=== PATIENT | female | born 1940 | race Caucasian/White ===

== ENCOUNTER → 2017-12-07 14:11 | Outpatient (CLI) | payer MEDICARE, SELFPAY ==
[2017-12-07 16:03] LABS: BUN 26 mg/dL (7-18); Glucose 106 mg/dL (74-106)
[2017-12-07 16:04] LABS: Anion Gap 9 (5-15); Calcium,Total 9.3 mg/dL (8.5-10.1); Chloride 100 mmol/L (98-107); EST Glomerular Filtration Rate 42 mL/min (>60); Est Glom Filt Rate - Afr Amer 51 mL/min (>60); Potassium 4.4 mmol/L (3.5-5.1); Sodium Level 138 mmol/L (136-145)
== END ==
PROVIDERS: Visit Provider Physician Assistant Medical
DX: E78.5 Hyperlipidemia, unspecified (principal)
CPT/HCPCS: 36415; 80048

== ENCOUNTER → 2017-12-20 11:49 | Outpatient (CLI) | payer MEDICARE, SELFPAY ==
[2017-12-20 11:52] LABS: Red Blood Cells-Urine 0 SEEN /hpf (0-5)
[2017-12-20 16:09] LABS: Absolute Lymphocyte Count 1.18 X10^3/ul (0.83-4.51); Absolute Neutrophil Count 4.8 X10^3/uL (2.0-7.7); Basophil# 0.03 X10^3/uL; Basophil% 0.4 % (0-1); Eosinophil# 0.32 X10^3/uL; Eosinophils% 4.6 % (0-5); Hemoglobin 11.4 g/dl (12.0-15.0); Lymphocyte # 1.18 X10^3/ul (4.0); Lymphocyte % 16.8 % (19-41); Mean Corp Hgb Conc 32.6 g/gl (32-36); Mean Corpuscular Hgb 29.6 pg (27.0-32.0); Mean Corpuscular Volume 90.9 fL (81-99); Mean Platelet Vol. 10.5 fl (6.2-12.0); Neutrophil # 4.77 X10^3/uL (2.7-7.7); Neutrophil % 67.9 % (47-70); Platelet Count 276 K/mm3 (150-450); RBC Distribution Width CV 13.6 % (11.6-14.6); RBC Distribution Width SD 44.2 fl (35.1-43.9); Red Blood Count 3.85 M/mm3 (4.2-5.4)
[2017-12-20 16:12] LABS: POSITIVE COUNT NO; POSITIVE DIFFERENTIAL NO; POSITIVE MORPHOLOGY NO
[2017-12-20 16:34] LABS: Anion Gap 10 (5-15); BUN 29 mg/dL (7-18); BUN/Creat Ratio 21.2 RATIO (10-20); Calcium,Total 9.5 mg/dL (8.5-10.1); Chloride 101 mmol/L (98-107); Creatinine, Serum 1.37 mg/dL (0.55-1.02); EST Glomerular Filtration Rate 40 mL/min (>60); Est Glom Filt Rate - Afr Amer 48 mL/min (>60); Glucose 85 mg/dL (74-106); Magnesium 2.4 mg/dL (1.6-2.6); Potassium 4.4 mmol/L (3.5-5.1); Sodium Level 137 mmol/L (136-145); T4 Free Direct 1.04 ng/dL (0.76-1.46); Thyroid Stim Hormone (TSH) 2.86 uIU/mL (0.358-3.74)
[2017-12-20 16:42] LABS: Color, Urine Yellow (Yellow); Glucose, Dipstick Normal (Normal); Hemoglobin A1c 6.4 % (4.2-6.3); Ketone-Dipstick Negative (Negative); Leukocyte Esterase-Dipstick 500 /ul (Negative); Nitrite-Dipstick Positive (Negative); Occult Blood-Urine 10 /ul (Negative); Protein-Dipstick Negative (Negative); Specific Gravity, Urine 1.015 (1.002-1.030); Urine Bilirubin Dipstick Negative (Negative); Urine Clarity Cloudy (Clear); Urine Urobilinogen Normal (Normal)
[2017-12-20 17:33] LABS: Microalbumin,Random Urine 36.6 mg/L (NO RANGE EST.)
[2017-12-20 18:00] LABS: Hyaline Cast 0-5 SEEN /lpf (0-5)
[2017-12-20 18:03] LABS: Bacteria 4+ /hpf (None Seen); Squamous Epithelial Cells - UA 0-5 SEEN /hpf (5-10); Transitional Epithelial - Ur 0-5 SEEN /hpf (0-5); White Blood Cells 25-50 SEEN /hpf (0-5)
[2017-12-20 18:04] LABS: Mucous, Urine RARE /hpf (<or=2+)
[2017-12-20 18:06] LABS: Renal Epithelial Cells 0-5 SEEN /hpf (0-5)
[2017-12-21 14:12] LABS: Ferritin 36 ng/mL (8-252); Iron 64 ug/dL (50-170); Iron Binding Capacity,Total 378 ug/dL (250-450); PERCENT IRON SATURATION 16.9 % (15.0-55.0)
[2017-12-21 15:25] LABS: Vitamin B12 1021 pg/mL (211-911)
== END ==
PROVIDERS: Family Provider Family Medicine; PCP Family Medicine; Visit Provider Family Medicine
DX: E11.9 Type 2 diabetes mellitus without complications (principal); D64.9 Anemia, unspecified; N39.0 Urinary tract infection, site not specified
CPT/HCPCS: 80048; 81001; 82043; 82570; 82607; 82728; 82746; 83036; 83540; 83550; 83735; 84439; 84443; 85025; 87077; 87086; 87088; 87186

== ENCOUNTER → 2017-12-25 14:52 | Outpatient (CLI) | payer MEDICARE, SELFPAY ==
--- NOTE | 2017-12-25 14:54 | US_ITS ---
STUDY: THYROID ULTRASOUND REASON FOR EXAM: Female, 77 years old. Thyroid nodule. TECHNIQUE: Ultrasound evaluation of the thyroid was performed with real-time and static roe-scale imaging. COMPARISON: None. FINDINGS: RIGHT LOBE: The right lobe of the thyroid gland measures 3.9 cm x 1.7 cm x 1.2 cm. There is a homogeneous echotexture. There is a 3 mm x 3 mm x 2 mm cyst in the lower pole of the right lobe of the thyroid. LEFT LOBE: The left lobe of the thyroid gland measures 4.2 cm x 1.1 cm x 1.1 cm. There is a homogeneous echotexture. 2 subcentimeters hypoechoic solid nodules are seen. The larger measures 6 mm x 7 mm x 7 mm. This is in the midportion of the left lobe. ISTHMUS: The isthmus measures 4.0 mm. There is an 8 mm x 6 mm x 5 mm solid hypoechoic nodule in the isthmus. The regional lymph nodes are normal. US/Thyroid IMPRESSION: Nodules seen in both lobes as well as in the isthmus. Correlation with a nuclear medicine thyroid uptake and scan is recommended. Electronically Signed: Alexis Munoz MD at 15:01 EST Tel [phone], Service support ,
== END ==
PROVIDERS: Family Provider Family Medicine; PCP Family Medicine; Visit Provider Family Medicine
DX: E04.1 Nontoxic single thyroid nodule (principal)
CPT/HCPCS: 76536

== ENCOUNTER → 2018-01-07 09:29 | Outpatient (CLI) | payer MEDICARE, SELFPAY ==
--- NOTE | 2018-01-07 09:36 | NM_ITS ---
CLINICAL: 77-year-old female with reported history of thyroid nodularity. I-123 THYROID UPTAKE and SCAN COMPARISON: Thyroid ultrasound report 12/25/2017 FINDINGS: The patient was administered a 298 uCi I-123 capsule by mouth. The 4-hour I-123 radioactive iodine thyroidal uptake was calculated to be 6.0 % (normal 5 to 25 %). The 24-hour I-123 radioactive iodine thyroidal uptake was calculated to be 17.0 % (normal 5 to 40 %). The I-123 thyroid scan demonstrates heterogeneous radiopharmaceutical concentration throughout both lobes of a U-shaped thyroid gland. There are no dominant colloidal parenchymal hypofunctioning-cold nodules noted in either lobe of the thyroid gland. NM/Thyroid Uptake Single or Mult IMPRESSION: 1. LOWER LIMITS OF NORMAL 4- and NORMAL 24-hour I-123 radioactive iodine thyroidal uptakes. Correlation with in vitro thyroid function studies may be of benefit. 2. 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 The incidence of malignant transformation and hypofunctioning regions in a multinodular gland is < 5% in the absence of previous head and neck radiation. Electronically Signed: Giacomo Charlton DO at 9:50 EST Tel , Service support ,
== END ==
PROVIDERS: Family Provider Family Medicine; PCP Family Medicine; Visit Provider Family Medicine
DX: E04.2 Nontoxic multinodular goiter (principal)
CPT/HCPCS: 78012; A9516

== ENCOUNTER → 2018-01-15 11:46 | Outpatient (CLI) | payer MEDICARE, SELFPAY ==
[2018-01-15 14:52] LABS: Anion Gap 11 (5-15); BUN 27 mg/dL (7-18); BUN/Creat Ratio 28.7 RATIO (10-20); Calcium,Total 9.3 mg/dL (8.5-10.1); Chloride 105 mmol/L (98-107); Creatinine, Serum 0.94 mg/dL (0.55-1.02); EST Glomerular Filtration Rate 61 mL/min (>60); Est Glom Filt Rate - Afr Amer 74 mL/min (>60); Glucose 85 mg/dL (74-106); Potassium 4.2 mmol/L (3.5-5.1); Sodium Level 140 mmol/L (136-145)
== END ==
PROVIDERS: Family Provider Family Medicine; PCP Family Medicine; Visit Provider Family Medicine
DX: R94.4 Abnormal results of kidney function studies (principal)
CPT/HCPCS: 36415; 80048

== ENCOUNTER → 2018-05-31 11:54 | Outpatient (CLI) | payer MEDICARE, SELFPAY ==
[2018-05-31 14:53] LABS: Absolute Neutrophil Count 4.2 X10^3/uL (2.0-7.7); Basophil# 0.03 X10^3/uL; Basophil% 0.5 % (0-1); Eosinophil# 0.27 X10^3/uL; Eosinophils% 4.3 % (0-5); Hematocrit 36.9 % (37-47); Hemoglobin 11.8 g/dl (12.0-15.0); Lymphocyte % 17.7 % (19-41); Mean Corpuscular Hgb 28.7 pg (27.0-32.0); Mean Corpuscular Volume 89.8 fL (81-99); Mean Platelet Vol. 10.1 fl (6.2-12.0); Monocyte# 0.66 X10^3/uL; Monocyte% 10.6 % (0-10); Neutrophil # 4.16 X10^3/uL (2.7-7.7); Neutrophil % 66.7 % (47-70); Platelet Count 250 K/mm3 (150-450); RBC Distribution Width CV 13.9 % (11.6-14.6); RBC Distribution Width SD 44.8 fl (35.1-43.9); Red Blood Count 4.11 M/mm3 (4.2-5.4); White Blood Count 6.2 K/mm3 (4.4-11.0)
[2018-05-31 14:57] LABS: POSITIVE COUNT NO; POSITIVE DIFFERENTIAL NO; POSITIVE MORPHOLOGY NO
[2018-05-31 15:23] LABS: AST(SGOT) 32 U/L (15-37); Alanine Aminotransfer ALT/SGPT 31 U/L (13-56); Albumin, Serum 3.9 g/dL (3.2-5.0); Alkaline Phosphatase 66 U/L (45-117); Bilirubin, Direct 0.12 mg/dL (0.00-0.30); Cholesterol 139 mg/dL (200); High Density Lipoprotein 54 mg/dL; Protein, Total 7.9 g/dL (6.4-8.2); Triglycerides 283 mg/dL; Very Low Density Lipoprotein 57 mg/dL (5-40)
[2018-05-31 15:28] LABS: ALB/GLOB Ratio 1.1 RATIO (0.9-2.4); AST(SGOT) 33 U/L (15-37); Alanine Aminotransfer ALT/SGPT 29 U/L (13-56); Albumin, Serum 3.8 g/dL (3.2-5.0); Alkaline Phosphatase 58 U/L (45-117); Anion Gap 6 (5-15); BUN 28 mg/dL (7-18); BUN/Creat Ratio 22.4 RATIO (10-20); Calcium,Total 9.8 mg/dL (8.5-10.1); Chloride 104 mmol/L (98-107); Cholesterol 138 mg/dL (200); Creatinine, Serum 1.25 mg/dL (0.55-1.02); EST Glomerular Filtration Rate 44 mL/min (>60); Est Glom Filt Rate - Afr Amer 53 mL/min (>60); Globulin 3.5 g/dL (2.2-4.2); Glucose 106 mg/dL (74-106); High Density Lipoprotein 55 mg/dL; Potassium 4.8 mmol/L (3.5-5.1); Protein, Total 7.3 g/dL (6.4-8.2); Sodium Level 139 mmol/L (136-145); Triglycerides 260 mg/dL; Very Low Density Lipoprotein 52 mg/dL (5-40)
[2018-05-31 15:41] LABS: Microalbumin,Random Urine 10.8 mg/L (NO RANGE EST.); Microalbumin:Creatinine Ratio 11.2 mg/g CRE (<30 mg/g CRE)
[2018-05-31 15:45] LABS: Hemoglobin A1c 6.3 % (4.2-6.3)
== END ==
PROVIDERS: Family Provider Family Medicine; PCP Family Medicine; Visit Provider Physician Assistant Medical
DX: E78.00 Pure hypercholesterolemia, unspecified (principal)
CPT/HCPCS: 36415; 80053; 80061; 80076; 82043; 82570; 83036; 85025

== ENCOUNTER 2018-06-24 05:51 | Day surgery (SDC) | payer MEDICARE, SELFPAY ==
[2018-06-24 06:12] VITALS: BP 169/100; PULSE 67; RESP 16; TEMP 36.6; O2SAT 98; BMI 47.1
[2018-06-24 06:31] LABS: Bedside Glucose 129 mg/dL (70-110)
--- NOTE | 2018-06-24 07:14 | PCM.OPRPT ---
Problem List (1) Heme + stool Status: Acute Report of Operation Date of Procedure: 06/24/18 Pre-Operative Diagnosis: R19.5 heme positive stool Post-Operative Diagnosis: Same Surgery/Procedure Performed:: Colonoscopy Type of Anesthesia:: MAC Description of Procedure: Patient was brought into the endoscopy suite. Placed in the left lateral decubitus position. Was given graded anesthesia. Colonoscope was inserted into the rectum. Directed through the anastomosis, descending colon, transverse colon, descending colon, cecum, into the terminal ileum. Operative findings: 1. Terminal ileum: Normal appearance no lesions no erythema 2. Cecum: Normal appearance no mass lesions. 3. Transverse colon: Normal appearance no mass lesions. 4. Descending colon: Normal appearance no mass lesions. 5. Anastomosis: Normal appearance no mass lesions. 6. Rectum: Normal appearance no mass lesions retroflexion did show internal hemorrhoids. Patient has significant diverticular disease throughout the colon majority of it was in the descending colon. There is no obvious source of bleeding there is no mass lesions there were no polyps and positive stools probably were either from her internal hemorrhoids or diverticular disease. Patient can have repeat colonoscopies based upon symptomatology. Patient may restart her anticoagulation today. - Admit VTE Documentation VTE Present on Admission: No VTE Mechan Device Prophylaxis: None VTE Pharm Prophylaxis ordered?: No Reason prophylaxis not ordered:: Treatment Not Indicated
[2018-06-24 07:20] VITALS: BP 100/46; BP 169/100; PULSE 61; RESP 12; TEMP 36.4; O2SAT 96
[2018-06-24 07:25] VITALS: BP 169/100; BP 98/48; PULSE 62; RESP 16; O2SAT 97
[2018-06-24 07:30] VITALS: BP 111/58; BP 169/100; PULSE 59; RESP 16; O2SAT 98
[2018-06-24 07:35] VITALS: BP 111/62; BP 169/100; PULSE 64; RESP 16; TEMP 37; O2SAT 99
[2018-06-24 07:55] VITALS: BP 169/100
== END 2018-06-24 08:04 | disposition home or self-care (01) ==
LOC: EN 05:51 → AC 05:52
PROVIDERS: Family Provider Family Medicine; PCP Family Medicine; Visit Provider Surgery
PROC: 0DJD8ZZ Inspection of Lower Intestinal Tract, Via Natural or Artificial Opening Endoscopic (ICD-10-PCS; CPT 45378; principal; 2018-06-24 06:55)
DX: K57.30 Diverticulosis of large intestine without perforation or abscess without bleeding (principal); K64.8 Other hemorrhoids; K63.89 Other specified diseases of intestine; I48.0 Paroxysmal atrial fibrillation; I48.92 Unspecified atrial flutter; E11.9 Type 2 diabetes mellitus without complications; A48.1 Legionnaires' disease; E78.5 Hyperlipidemia, unspecified; I10 Essential (primary) hypertension; I27.20 Pulmonary hypertension, unspecified; Z79.82 Long term (current) use of aspirin; Z79.84 Long term (current) use of oral hypoglycemic drugs; Z79.899 Other long term (current) drug therapy
CPT/HCPCS: 45378; 82962; J7120

== ENCOUNTER → 2018-10-15 12:22 | Outpatient (CLI) | payer MEDICARE, SELFPAY ==
[2018-08-14 13:26] VITALS: BMI 44.2
[2018-10-15 12:27] LABS: Mucous, Urine 0 SEEN /hpf (<or=2+); Red Blood Cells-Urine 0 SEEN /hpf (0-5)
[2018-10-15 15:40] LABS: Color, Urine Yellow (Yellow); Glucose, Dipstick Normal (Normal); Ketone-Dipstick 5 mg/dl (Negative); Leukocyte Esterase-Dipstick 500 /ul (Negative); Nitrite-Dipstick Positive (Negative); Occult Blood-Urine 25 /ul (Negative); Protein-Dipstick 15 mg/dl (Negative); Urine Bilirubin Dipstick Negative (Negative); Urine Clarity Sl. Cloudy (Clear); Urine Urobilinogen Normal (Normal)
[2018-10-15 15:55] LABS: Absolute Lymphocyte Count 1.04 X10^3/ul (0.83-4.51); Basophil# 0.03 X10^3/uL; Basophil% 0.5 % (0-1); Eosinophil# 0.28 X10^3/uL; Eosinophils% 4.7 % (0-5); Hematocrit 36.2 % (37-47); Hemoglobin 11.5 g/dl (12.0-15.0); Lymphocyte # 1.04 X10^3/ul (4.0); Lymphocyte % 17.5 % (19-41); Mean Corp Hgb Conc 31.8 g/gl (32-36); Mean Corpuscular Hgb 28.6 pg (27.0-32.0); Mean Platelet Vol. 10.5 fl (6.2-12.0); Monocyte# 0.56 X10^3/uL; Monocyte% 9.4 % (0-10); Neutrophil # 4.03 X10^3/uL (2.7-7.7); Neutrophil % 67.9 % (47-70); Platelet Count 277 K/mm3 (150-450); RBC Distribution Width CV 13.7 % (11.6-14.6); RBC Distribution Width SD 44.6 fl (35.1-43.9); Red Blood Count 4.02 M/mm3 (4.2-5.4); White Blood Count 5.9 K/mm3 (4.4-11.0)
[2018-10-15 16:03] LABS: Microalbumin:Creatinine Ratio 40.7 mg/g CRE (<30 mg/g CRE); Protein, Urine (Random) 24.2 mg/dL (<11.9); Protein:Creat Ratio 149 mg/g CRE (0-200)
[2018-10-15 16:06] LABS: POSITIVE COUNT NO; POSITIVE DIFFERENTIAL NO; POSITIVE MORPHOLOGY NO
[2018-10-15 16:07] LABS: AST(SGOT) 27 U/L (15-37); Alanine Aminotransfer ALT/SGPT 30 U/L (13-56); Albumin, Serum 3.5 g/dL (3.2-5.0); Alkaline Phosphatase 57 U/L (45-117); Anion Gap 10 (5-15); BUN 14 mg/dL (7-18); BUN/Creat Ratio 15.2 RATIO (10-20); Calcium,Total 9.8 mg/dL (8.5-10.1); Chloride 100 mmol/L (98-107); Cholesterol 125 mg/dL (200); Creatinine, Serum 0.92 mg/dL (0.55-1.02); EST Glomerular Filtration Rate 62 mL/min (>60); Est Glom Filt Rate - Afr Amer 75 mL/min (>60); Globulin 3.6 g/dL (2.2-4.2); Glucose 115 mg/dL (74-106); High Density Lipoprotein 47 mg/dL; Magnesium 1.2 mg/dL (1.6-2.6); Potassium 3.8 mmol/L (3.5-5.1); Protein, Total 7.1 g/dL (6.4-8.2); Sodium Level 139 mmol/L (136-145); Triglycerides 215 mg/dL; Very Low Density Lipoprotein 43 mg/dL (5-40)
[2018-10-15 16:11] LABS: Bacteria 3+ /hpf (None Seen); Squamous Epithelial Cells - UA 0-5 SEEN /hpf (5-10); White Blood Cells 25-50 SEEN /hpf (0-5)
[2018-10-15 16:12] LABS: Hemoglobin A1c 6.7 % (4.2-6.3)
[2018-10-15 16:13] LABS: Transitional Epithelial - Ur 0-5 SEEN /hpf (0-5)
[2018-10-15 16:43] LABS: Vitamin D,25 Hydroxy 43.4 ng/mL (29.95-100.01)
--- OUTSIDE RECORDS SUMMARY | 2018-12-01 14:36 | XMS RPT_ITS ---
:1940 Author Organization [place] Support Name Relationship Address Phone ALHAJIRICCARDO Unavailable [phone] + [place] [address] R Unavailable Unavailable Unavailable WAYBILL, SOCO Unavailable [phone] + [place] [address] RICCARDO MANE Unavailable [phone] + [place] [address] R Unavailable Unavailable Unavailable WAYBILL, SOCO Unavailable [phone] + [place] [address] RICCARDO MANE Unavailable Unavailable + R Unavailable Unavailable Unavailable WAYBILL, SOCO Unavailable Unavailable + [place] [address] RICCARDO MANE Unavailable Unavailable + R Unavailable Unavailable Unavailable WAYBILL, SOCO Unavailable Unavailable + [place] [address] RICCARDO MANE Unavailable Unavailable + R Unavailable Unavailable Unavailable WAYBILL, SOCO Unavailable Unavailable + [place] [address] RICCARDO MANE Unavailable . + [place] [address] R Unavailable Unavailable Unavailable WAYBILL, SOCO Unavailable . + [place] [address] RICCARDO MANE Unavailable Unavailable + [place] [address] R Unavailable Unavailable Unavailable WAYBILL, SOCO Unavailable Unavailable + [place], [place] RICCARDO MANE Unavailable . + [place] [address] R Unavailable Unavailable Unavailable WAYBILL, SOCO Unavailable . + [place] [address] RICCARDO MANE Unavailable . + [place] [address] R Unavailable Unavailable Unavailable WAYBILL, SOCO Unavailable . + [place] [address] RICCARDO MANE Unavailable Unavailable + R Unavailable Unavailable Unavailable WAYBILL, SOCO Unavailable Unavailable + RICCARDO MANE Unavailable Unavailable + R Unavailable Unavailable Unavailable WAYBILL, SOCO Unavailable Unavailable + RICCARDO MANE Unavailable Unavailable + R Unavailable Unavailable Unavailable WAYBILL, SOCO Unavailable Unavailable + RICCARDO MANE [place] + [place] Unavailable Unavailable Unavailable WAYBILL, SOCO Unavailable NA + [place] RICCARDO MANE Unavailable [place] + [place], [place] R Unavailable Unavailable Unavailable WAYBILL, SOCO Unavailable NA + [place] RICCARDO MANE Unavailable [place] + [place] R Unavailable Unavailable Unavailable WAYBILL, SOCO Unavailable NA + [place], [place] Care Team Providers Name Role Phone Freddie Arauz Attending Unavailable Freddie Arauz Primary Care Unavailable Saima Martinez Attending Unavailable Saima Martinez Referring Unavailable Primay Care Physicia, No Primary Care Unavailable Freddie Arauz Attending Unavailable Freddie Arauz Primary Care Unavailable Freddie Arauz Attending Unavailable Freddie Arauz Primary Care Unavailable Freddie Arauz Attending Unavailable Freddie Arauz Referring Unavailable Freddie Arauz Primary Care Unavailable Freddie Arauz Attending Unavailable Freddie Arauz Referring Unavailable Freddie Arauz Primary Care Unavailable Freddie Arauz Attending Unavailable Freddie Arauz Primary Care Unavailable Troy Dunaway Attending Unavailable Freddie Arauz Referring Unavailable Marvin Castaneda Attending Unavailable Freddie Arauz Referring Unavailable Freddie Arauz Primary Care Unavailable Saima Martinez Attending Unavailable Saima Martinez Referring Unavailable Freddie Arauz Primary Care Unavailable Marvin Castaneda Attending Unavailable Marvin Castaneda Referring Unavailable SchFreddie andino E Primary Care Unavailable Zayra Medina PA-C Attending Unavailable Freddie Arauz Referring Unavailable Freddie Arauz Primary Care Unavailable Marvin Castaneda Attending Unavailable Saima Doyle Attending Unavailable Riccardo Mckeon Attending Unavailable Primay Care Physicia, No Referring Unavailable PROBLEMS PROBLEMS DATE TYPE CONDITION / CODE ATTENDING STATUS SOURCE 08/14/2018 Unknown I48.0 - Paroxysmal Riccardo Mckeon Active [place] atrial fibrillation Community / I48.0(ICD-10) Hospital Repository 08/14/2018 Unknown I48.92 - MoodisRiccardo miller Active [place] Unspecified atrial Community flutter / Hospital I48.92(ICD-10) Repository 06/28/2018 Unknown R19.5 - Other fecal LeonelPacheco pangel Active [place] abnormalities / Community R19.5(ICD-10) Hospital Repository 05/31/2018 Unknown E78.00 - Pure Martinez Active [place] hypercholesterolemi Saima [facility] Community a, unspecified / Hospital E78.00(ICD-10) Repository 03/01/2018 Unknown 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 mg/dL Normal UR CREAT 162.00 LAB L501.1930 <11.9 mg/dL High 24.2 PROTEIN,UR.R AN. LAB L501.1940 0-200 mg/g CRE Normal PROT:CRE 149 RATIO Performed By: #### L501.0900, L502.0250 #### [facility] [place], [address] MICROALB:CREAT Collected: 10/15/2018 Status: F Source: [place] RATIO,RANDOM UR 12:25 PM [facility] REPOSITORY TYPE CODE TESTS RESULT OUT OF RANGE REFERENCE UNITS LAB L502.0500 NO RANGE EST. mg/L Normal 66.0 MICROALBUMIN ,UR LAB L502.0600 <30 mg/g CRE mg/g CRE High 40.7 MALB:CREAT Performed By: #### L501.0900, L502.0250 #### [facility] [address] [place], [place], [address] CBC W/DIFF, AUTOMATED Collected: 10/15/2018 Status: F Source: [place] 12:25 PM [facility] REPOSITORY TYPE CODE TESTS RESULT OUT OF RANGE REFERENCE UNITS LAB L100.1000 4.4-11.0 K/mm3 Normal WBC 5.9 LAB L100.1200 4.2-5.4 M/mm3 Low RBC 4.02 LAB L100.1300 12.0-15.0 g/dl Low HGB 11.5 LAB L100.1400 37-47 % Low HCT 36.2 LAB L100.1500 81-99 fL Normal MCV 90.0 LAB L100.1600 27.0-32.0 pg Normal MCH 28.6 LAB L100.1700 32-36 g/gl Low MCHC 31.8 LAB L100.1810 11.6-14.6 % Normal RDW CV 13.7 LAB L100.1820 35.1-43.9 fl High RDW SD 44.6 LAB L100.1900 150-450 K/mm3 Normal PLT 277 LAB L100.2000 6.2-12.0 fl Normal MPV 10.5 LAB L100.2100 47-70 % Normal NEUT% 67.9 LAB L100.2200 19-41 % Low LY% 17.5 LAB L100.2300 0-10 % Normal MONO% 9.4 LAB L100.2400 0-5 % Normal EO% 4.7 LAB L100.2500 0-1 % Normal BASO% 0.5 LAB L100.2550 0.0-0.9 % Normal IM GRAN % 0.000 Result Comment: IG% - Immature Granulocytes (promyelocytes, myelocytes and metamyelocytes) > 1% indicates that a LEFT SHIFT is Present. LAB L100.2620 2.0-7.7 X10 3/uL Normal Absolute Neut 4.0 LAB L100.2720 0.83-4.51 X10 3/ul Normal Absolute Lymph 1.04 Performed By: #### L100.0100 #### [facility] [address] [facility] [address] [place], [place], [id number] URINALYSIS, COMPLETE Collected: 10/15/2018 Status: F Source: [place] 12:25 PM [facility] REPOSITORY Order Comment: How was Urine Obtained? CLEAN CATCH TYPE CODE TESTS RESULT OUT OF REFERENCE UNITS RANGE LAB L400.3000 Yellow COLOR Normal Yellow LAB L400.3050 Clear CLARITY Normal Sl. Cloudy LAB L400.3200 Normal mg/dl GLUCOSE, UR Normal Normal LAB L400.3300 Negative mg/dL BILIRUBIN Normal URINE Negative LAB L400.3400 Negative mg/dl KETONE UR High 5 LAB L400.3465 1.002-1.030 SP.GR. Normal DIPSTX 1.020 LAB L400.3550 5.0 - 8.0 pH UR Normal 5.0 LAB L400.3600 Negative mg/dl PROT DIPSTX High 15 LAB L400.3700 Normal mg/dl UROBILI Normal Normal LAB L400.3750 Negative NITRITE UR High Positive LAB L400.3780 Negative /ul OCCULT High BLOOD-UR 25 LAB L400.3800 Negative /ul LEUK High ESTERASE 500 LAB L400.4050 0-5 /hpf WBC Normal 25-50 SEEN LAB L400.4100 0-5 /hpf RBC-UA Normal 0 SEEN LAB L400.4150 5-10 /hpf SQUAM EPI Normal 0-5 SEEN LAB L400.4300 None Seen /hpf BACTERIA Normal 3+ LAB L400.4350 <or=2+ /hpf MUCUS, Normal URINE 0 SEEN LAB L400.4200 0-5 /hpf Normal TRANSITIONAL EP 0-5 SEEN Performed By: #### L400.0001 #### [facility] [address] [facility] [place], [address] COMPREHENSIVE METABOLIC Collected: 10/15/2018 Status: F [facility] REPOSITORY TYPE CODE TESTS RESULT OUT OF RANGE REFERENCE UNITS LAB L501.0100 74-106 mg/dL High GLU 115 Result Comment: Fasting Glucose result from 100 to 125 mg/dL suggests IMPAIRED HOMEOSTASIS per A.D.A. criteria. Please note revised GLUCOSE reference range effective 2017. LAB L501.1000 7-18 mg/dL Normal BUN 14 LAB L501.1100 0.55-1.02 mg/dL Normal CREAT,SERUM 0.92 Result Comment: The validity of the calculated GFR AND GFRAA in patients over 70 years has not been determined. Clinical correlation is essential. LAB L501.1110 >60 mL/min Normal EST GFR 62 Result Comment: Non- GFR Calc LAB L501.1115 >60 mL/min Normal EST GFR - AA 75 Result Comment: GFR Calc LAB L501.1300 10-20 RATIO Normal BUN/CRE 15.2 LAB L501.1500 6.4-8.2 g/dL T Normal PROT 7.1 LAB L501.1800 3.2-5.0 g/dL Normal ALB 3.5 LAB L501.1950 2.2-4.2 g/dL Normal GLOB 3.6 LAB L501.2000 0.9-2.4 RATIO Normal A/G 1.0 LAB L501.2200 8.5-10.1 mg/dL CA Normal 9.8 LAB L501.4100 15-37 U/L Normal AST 27 LAB L501.4305 45-117 U/L Normal ALK P 57 LAB L501.4405 13-56 U/L Normal ALT 30 LAB L501.4600 0.20-1.00 mg/dL T Normal BILI 0.60 LAB L501.5300 136-145 mmol/L NA Normal 139 LAB L501.5600 3.5-5.1 mmol/L K Normal 3.8 LAB L501.5900 98-107 mmol/L CL Normal 100 LAB L501.6100 21.0-32.0 mmol/L Normal CO2 29.0 LAB L501.6200 5-15 Normal GAP 10 Performed By: #### L500.4050, L500.4100, L501.5200 #### [facility] [address] [place], [place], [id number] LIPID PROFILE Collected: 10/15/2018 Status: F Source: [place] 12:25 PM [facility] REPOSITORY TYPE CODE TESTS RESULT OUT OF RANGE REFERENCE UNITS LAB L501.4900 200 mg/dL Normal CHOL 125 Result Comment: <200 mg/dL Desirable 200-240 mg/dL Borderline >240 mg/dL High Risk LAB L501.5000 mg/dL High TRIG 215 Result Comment: The drugs N-Acetylcysteine and Metamizole may falsely depress this assay. Serum Triglycerides Reference Interval Normal <150 mg/dL Borderline high 150 - 199 mg/dL High 200 - 499 mg/dL Very High > or = 500 mg/dL LAB L501.6400 mg/dL Normal HDL 47 Result Comment: The drugs N-Acetylcysteine and Metamizole may falsely depress this assay. Reference Range HDL <40 mg/dL Low HDL Cholesterol HDL >or= 60 mg/dL High HDL Cholesterol LAB L501.6500 0-130 mg/dL Normal LDL 35 LAB L501.6600 5-40 mg/dL High VLDL 43 Performed By: #### L500.4050, L500.4100, L501.5200 #### [facility] [address] [place], [place], [address] MAGNESIUM Collected: 10/15/2018 Status: F Source: [place] 12:25 PM [facility] REPOSITORY TYPE CODE TESTS RESULT OUT OF RANGE REFERENCE UNITS LAB L501.5200 1.6-2.6 mg/dL Low MG 1.2 Performed By: #### L500.4050, L500.4100, L501.5200 #### [facility] [address] [place], [address] HEMOGLOBIN A1C Collected: 10/15/2018 Status: F Source: [place] 12:25 PM [facility] REPOSITORY TYPE CODE TESTS RESULT OUT OF RANGE REFERENCE UNITS LAB L501.9985 4.2-6.3 % High HGB A1C 6.7 Performed By: #### L501.9985 #### [facility] [address] [place], [place], [address] VITAMIN D,25 HYDROXY Collected: 10/15/2018 Status: F Source: [place] 12:25 PM [facility] REPOSITORY TYPE CODE TESTS RESULT OUT OF RANGE REFERENCE UNITS LAB L506.1000 29.95-100.01 ng/mL Normal Vitamin D 43.4 25-OH Result Comment: Vitamin D 25(OH) Status Range Deficiency <20 ng/mL (50nmol/L) Insuffciency 20 - 30 ng/mL (50 - 75 nmol/L) Sufficiency 30 - 100 ng/mL (75 - 250 nmol/L) Toxicity >100 ng/mL (>250 nmol/L) Performed By: #### L506.1000 #### [facility] [address] [place], [address] CARDIOLOGY VISIT Observed: 08/14/2018 Status: F Source: [place] REPORT 2:02 PM [facility] REPOSITORY [facility] [address] [place] [address] OFFICE VISIT Date of Service: 08/14/18 MR#: [id number] Acct: [id number] Name: NETTIE MANE Rep #: [id number] : 1940 Provider: Riccardo Mckeon MD Age/Sex: 78/F Location[place] [facility] [place] Status: Signed HPI HPI Details: NETTIE MANE, is a 78 F who presents to the office today for for outpatient cardiovascular follow-up. Overall since her previous visit she states that she has been doing well. She is not complaining of any ongoing symptoms of classic angina pectoris, CHF/pulmonary edema, palpitations, near-syncope or syncope. She has not had to go through additional cardiovascular testing. She states she is doing well on her current cardiovascular medication. She did have her lipid labs performed in May of this year. Her total cholesterol was 138 with an LDL of 31 and an HDL of 55. Her triglycerides were somewhat elevated at 260. Her AST and ALT were within normal range. She did have an ECG in the office today. She appears remaining in an underlying sinus versus ectopic atrial rhythm. She had no acute ECG changes. Intake Vital Signs08/14/18 Height 5 ft 2 in 08/14/18 Weight: 242 lb 08/14/18 Body Mass Index (BMI) 44.2 08/14/18 Blood Pressure 132/72 H Intake Visit Reasons: 9 M FU Allergies No Known Allergies Allergy (Verified 08/14/18 13:26) Medications Aspirin [Aspirin, Baby] 81 mg PO DAILY@0800 10/12/14 [History Confirmed 08/14/18] Calcium Carb/Vitamin D [Caltrate-600 With Vit D Tab] 2 tab PO DAILY@0800 10/12/14 [History Confirmed 08/14/18] Multivitamins,Therapeutic [Multivitamin] 1 tab PO DAILY 10/12/14 [History Confirmed 08/14/18] dabigatran etexilate 150 mg capsule 150 mg PO BID #180 cap 11/16/17 [Rx Confirmed 08/14/18] furosemide 40 mg tablet 40 mg PO BID #180 tab 11/16/17 [Rx Confirmed 08/14/18] lisinopril 20 mg tablet 20 mg PO BID #180 tab 11/16/17 [Rx Confirmed 08/14/18] magnesium oxide 400 mg (241.3 mg magnesium) tablet 400 mg PO QDAY #90 tab 11/16/17 [Rx Confirmed 08/14/18] sotalol 80 mg tablet 120 mg PO BID #270 tab 11/16/17 [Rx Confirmed 08/14/18] atorvastatin 20 mg tablet 20 mg PO QHS #90 tab 11/21/17 [Rx Confirmed 08/14/18] metformin 500 mg tablet 500 mg PO BID tab 11/21/17 [History Confirmed 08/14/18] ascorbic acid (vitamin C) 500 mg capsule 500 mg PO QDAY cap 03/29/18 [History Confirmed 08/14/18] gabapentin 600 mg tablet 600 mg PO TID 03/29/18 [History Confirmed 08/14/18] lidocaine 5 % topical patch 1 patch TOPICAL PRN PRN 03/29/18 [History Confirmed 08/14/18] Potassium Chloride [K-Dur] 20 meq PO DAILY PRN 06/20/18 [History Confirmed 08/14/18] [facility] Medical History Type 2 diabetes mellitus (Chronic) Paroxysmal atrial flutter (Acute) Bilateral leg edema (Chronic) Dyspnea on exertion (Chronic) Atrial fibrillation with rapid ventricular response (Chronic) Hyperlipidemia (Chronic) Essential hypertension (Chronic) Paroxysmal atrial fibrillation (Chronic) History of Legionnaire's disease (Resolved) History of cardioversion (Resolved) Atrial flutter (Inactive) Surgical History History of appendectomy (Resolved) History of cholecystectomy (Resolved) History of colon resection (Resolved 2011) History of hysterectomy (Resolved) History of tonsillectomy (Resolved) Hx of appendectomy (Inactive) Family History Father CAD (coronary artery disease) Mother Hypertension CVA (cerebral vascular accident) Social History Smoking Status: Never smoker alcohol intake: current alcohol intake frequency: holidays/special occasions only Alcohol type: hard liquor substance use type: does not use caffeine: No what type of physical activity do you participate in: swimming frequency: 1-2 times per week duration: 45-60 minutes/day seatbelt use: always do you feel safe at home: Yes ROS Const Const: Negative for fatigue, weakness, weight gain, weight loss, frequent falls or excessive sweating Eyes Eyes: Negative for change in vision, blurry vision or transient loss of vision ENT ENT: Positive for balance problems (ambulates with a cane); negative for dizziness Cardio Chest Pain: No Palpitations: No Edema: Bilateral (+1-2 Bilat LE) Muscle aches with walking: None Resp Respiratory: Positive for SOB with activity (baseline); negative for SOB at rest GI GI: Negative vomiting or vomiting blood/hematemesis : Negative for hematuria Musc Musc: Positive for balance problems (ambulates with a cane); negative for muscle aches/ myalgia, muscle weakness or joint pain Skin Skin: Negative non-healing lesions or rash Neuro Neuro: Negative for weakness, blurry vision, dizziness, lightheadedness, frequent falls or orthostatic symptoms Dani Hematologic/Lymphatic: Negative for easy bleeding Endo Endo: Negative for fatigue or excessive sweating Psych Psych: Negative for anxiety or depression Allergy Allergy/Immunology: Negative for hives, Negative for rash Cardiology Exam Const Appearance: cooperative, healthy appearing, comfortable, no acute distress, well developed, well groomed and other (walks with a cane) Nutritional Appearance: overweight Orientation: alert, awake and oriented x3 Head Head: normal to inspection, normocephalic and atraumatic Ears: hearing grossly normal bilaterally Nose: external nose normal Face and Sinus: face symmetric Mouth: oral mucosae normal Eyes Eyelids: eyelids normal Conjunctivae: conjunctivae normal Pupils: PERRL EOM: EOM intact bilaterally Neck Neck: normal visual inspection and full ROM Carotids: normal carotid upstroke Chest Chest inspection: normal inspection of the chest and symmetric chest movement Auscultation: Bilateral: Clear to Auscultation Cardio Palpation: normal PMI Heart sounds: S1 normal and S2 normal GI GI: normal to inspection, bowel sounds present and soft Neuro General: alert, awake and oriented x3 Skin Skin: no rashes or lesions noted Extremities Pulses: Normal: Right Radial Pulse, Left Radial Pulse Lower Extremity Edema: +2: Bilateral Psych Psychological: normal affect Supplemental Info Transthoracic echocardiogram: 05/15/2017 Interpretation Summary Left ventricular systolic function is normal. The estimated ejection fraction is 60 %. Mild concentric left ventricular hypertrophy. Apical false tendon noted. The left atrium is moderately enlarged. The right atrium is mildly enlarged. There is mild mitral annular calcification. Mild (1+) mitral valve insufficiency. Mild tricuspid valve insufficiency. Right ventricular systolic pressure estimated to be 44 mmHg. Transmitral diastolic flow velocities suggest diastolic dysfunction (pseudonormal pattern). Pharmacologic stress nuclear imaging study: 10/16/2012 INTERPRETATION Resting electrocardiogram demonstrates sinus rhythm, nonspecific ST and T wave changes. Resting blood pressure was 104/60. Heart rate of 65. The patient underwent Regadenoson infusion and was injected with OA mg over 10 seconds, No chest discomfort to suggest angina was elicited with regadenoson. Blood pressure increased slightly to 112/60 with an increase in heart rate to 78. The electrocardiogram with regadenoson demonstrated sinus rhythm with no ST changes to suggest ischemia. CONCLUSION 1. Normal physiologic response to regadenoson. 2. No chest discomfort to suggest angina with regadenoson. 3. Resting electrocardiogram demonstrating sinus rhythm, nonspecific ST and T wave changes. 4. Electrocardiogram with regadenoson demonstrating no ST changes to suggest ischemia. 5. Nuclear images demonstrate a decrease in activity involving the anteroseptal apex at rest improving with regadenoson suggestive of soft tissue/breast attenuation, but no significant fixed defects to suggest infarct and no reversible defects developing with regadenoson to suggest inducible ischemia. Calculated ejection fraction by gated SPECT imaging was 69%. 10/25/12 8139 <Electronically signed by Jude Guidry MD> Holter monitor: 11/10/2014 THIS JAIDEN 24 HOUR HOLTER MONITOR IN SINUS RHYTHM WITH PERIODS OF SINUS ARRHYTHMIA. MINIMUM HEART RATE WAS 50 BPM AT 4:48:46 AM, NO ACTIVITY OR SYMPTOM RECORDED. MAXIMUM HEART RATE WAS 92 BPM AT 11:10:55 AM, NO ACTIVITY OR SYMPTOM RECORDED. AVERAGE HEART RATE NOTED TO BE 61 BPM. RARE PREMATURE ATRIAL COMPLEXES. 2 ATRIAL COUPLETS. 1 RUN OF 3 BEATS OF PROBABLE ECTOPTC ATRIAL RHYTHM RATE 121 BPM AT 2:59:43 PM. RARE VENTRICULAR ECTOPY. NO RUNS NOTED. THE PATIENT KEPT A 24 HOUR DIARY. NO ACTIVITY OR SYMPTOMS RECORDED. Assessment AND Plan 1. Paroxysmal atrial fibrillation I48.0 Plan At the present time, based upon her current evaluation, she appears to be remaining in an underlying sinus versus ectopic atrial rhythm. She will continue her rate limiting/antiarrhythmic therapy. She will continue anticoagulant therapy. She will notify the office of any concerns. Orders Orders: 2. Paroxysmal atrial flutter I48.92 Plan Again she appears to be remaining in an underlying sinus versus ectopic atrial rhythm. She has had no acute symptoms. She will continue medical management and follow-up. Orders Orders: 3. Pure hypercholesterolemia E78.00 Plan Her lipid labs are as noted above. She will continue her medical therapy and follow-up. 4. Essential hypertension I10 Plan Her blood pressure appears to be well controlled. She will continue her antihypertensive medications. 5. Bilateral leg edema R60.0 Plan She continues with bilateral lower extremity peripheral pitting edema. This is chronic for her. She will continue her current medical management. Plan Detail Additional Comments Thank you for allowing me to participate in the care of your patient. Please don't hesitate to call if any issues arise. This note was generated using a voice recognition system and there may be incorrect words, spelling or punctuation that were not noted when reviewing the office note prior to saving. Follow Up 1 Year (PFM) Coding Level of Care Code Off vis,est,level 4 Diagnoses Paroxysmal atrial fibrillation I48.0 Paroxysmal atrial flutter I48.92 Pure hypercholesterolemia E78.00 Hyperlipidemia type: pure hypercholesterolemia Essential hypertension I10 Bilateral leg edema R60.0 Coding Level of Care Code Off vis,est,level 4 Diagnoses Paroxysmal atrial fibrillation I48.0 Paroxysmal atrial flutter I48.92 Pure hypercholesterolemia E78.00 Hyperlipidemia type: pure hypercholesterolemia Essential hypertension I10 Bilateral leg edema R60.0 08/14/18 1402 <Electronically signed by Riccardo Mckeon MD> Date Riccardo Mckeon MD Cosign Signature: Date (if applicable) CC: Freddie Arauz MD 12 LEAD EKG PERFORMED Observed: 08/14/2018 Status: F [place]: [place] [facility] [place] 1:30 PM [facility] REPOSITORY [facility] [address] [place] [address] 12 Lead EKG performed by [facility] 08/14/181328 MR#: [id number] Acct: [id number] Name: NETTIE MANE Rep #: [id number] : 1940 78 From: Riccardo Mckeon MD Attending Dr: Riccardo Mckeon MD Status: DEP AMB Ordering Dr: Riccardo Mckeon MD Date: 08/14/18 [place] [facility] [place]: F C Admitted: [facility]/12 Lead EKG performed by [facility] ECG Report Interpretation Sinus vs. ectopic atrial rhythmLow voltage in precordial leads. ABNORMAL Electronically signed on 08/14/2018 at 14:10 by Riccardo Mckeon [employer] Version [id number] 08/14/18 1414 Date Riccardo Mckeon MD CC: No Primary Care Physician Date Dictated: 08/14/181328 Date Transcribed: 08/14/181328 Shotblaster: PM Signed OPERATIVE REPORT Observed: 07/01/2018 Status: F Source: [place] 7:05 AM [facility] REPOSITORY [facility] Medical Records Department [address] [place] [address] Operative Report 06/24/18 0714 MR#: [id number] Acct: [id number] Name: NETTIE MANE Rep #: [id number] : 1940 78 From: Marvin Castaneda MD PCP: Freddie Arauz MD Status: DEP [facility] [place] Y Location: EN Problem List (1) Heme + stool Status: Acute Report of Operation Date of Procedure: 06/24/18 Pre-Operative Diagnosis: R19.5 heme positive stool Post-Operative Diagnosis: Same Surgery/Procedure Performed:: Colonoscopy Type of Anesthesia:: MAC Description of Procedure: Patient was brought into the endoscopy suite. Placed in the left lateral decubitus position. Was given graded anesthesia. Colonoscope was inserted into the rectum. Directed through the anastomosis, descending colon, transverse colon, descending colon, cecum, into the terminal ileum. Operative findings: 1. Terminal ileum: Normal appearance no lesions no erythema 2. Cecum: Normal appearance no mass lesions. 3. Transverse colon: Normal appearance no mass lesions. 4. Descending colon: Normal appearance no mass lesions. 5. Anastomosis: Normal appearance no mass lesions. 6. Rectum: Normal appearance no mass lesions retroflexion did show internal hemorrhoids. Patient has significant diverticular disease throughout the colon majority of it was in the descending colon. There is no obvious source of bleeding there is no mass lesions there were no polyps and positive stools probably were either from her internal hemorrhoids or diverticular disease. Patient can have repeat colonoscopies based upon symptomatology. Patient may restart her anticoagulation today. - Admit VTE Documentation VTE Present on Admission: No VTE Mechan Device Prophylaxis: None VTE Pharm Prophylaxis ordered?: No Reason prophylaxis not ordered:: Treatment Not Indicated 07/01/18 0705 <Electronically signed by Marvin Castaneda MD> Date Marvin Castaneda MD CC: Marvin Castaneda MD; Freddie Arauz MD Signed BEDSIDE GLUCOSE Collected: 06/24/2018 Status: F Source: [facility] 6:21 AM [facility] REPOSITORY TYPE CODE TESTS RESULT OUT OF REFERENCE UNITS RANGE LAB L501.080 70-110 mg/dL High BEDSIDE GLU 129 Result Comment: MANAGEMENT OF PATIENT CARE PER NURSING PROTOCOL Performed By: #### L501.080 #### [facility] Point of Care [address] [place] [address] SURGERY VISIT REPORT Observed: 06/20/2018 Status: F Source: NERI 4:24 PM [facility] REPOSITORY [facility] [address] [place] [address] OFFICE VISIT Date of Service: 06/20/18 MR#: [id number] Acct: [id number] Name: NETTIE MANE Rep #: [id number] : 1940 Provider: Zayra Medina PA-C Age/Sex: 78/F Location: [facility] Status: Signed Intake Vital Signs06/20/18 Height 5 ft 06/20/18 Weight: 235 lb Intake Visit Reasons: Update H AND P (Scheduled on 06/24/18 DP) Experimental Welder Required: No Is patient in pain?: No Allergies No Known Allergies Allergy (Verified 06/20/18 11:37) Medications Aspirin [Aspirin, Baby] 81 mg PO DAILY@0800 10/12/14 [History Confirmed 06/20/18] Calcium Carb/Vitamin D [Caltrate-600 With Vit D Tab] 2 tab PO DAILY@0800 10/12/14 [History Confirmed 06/20/18] Multivitamins,Therapeutic [Multivitamin] 1 tab PO DAILY 10/12/14 [History Confirmed 06/20/18] dabigatran etexilate 150 mg capsule 150 mg PO BID #180 cap 11/16/17 [Rx Confirmed 06/20/18] furosemide 40 mg tablet 40 mg PO BID #180 tab 11/16/17 [Rx Confirmed 06/20/18] lisinopril 20 mg tablet 20 mg PO BID #180 tab 11/16/17 [Rx Confirmed 06/20/18] magnesium oxide 400 mg tablet 400 mg PO QDAY #90 tab 11/16/17 [Rx Confirmed 06/20/18] sotalol 80 mg tablet 120 mg PO BID #270 tab 11/16/17 [Rx Confirmed 06/20/18] atorvastatin 20 mg tablet 20 mg PO QHS #90 tab 11/21/17 [Rx Confirmed 06/20/18] metformin 500 mg tablet 500 mg PO BID tab 11/21/17 [History Confirmed 06/20/18] ascorbic acid (vitamin C) 500 mg capsule 500 mg PO QDAY cap 03/29/18 [History Confirmed 06/20/18] gabapentin 600 mg tablet 600 mg PO TID 03/29/18 [History Confirmed 06/20/18] lidocaine 5 % topical patch 1 patch TOPICAL PRN PRN 03/29/18 [History Confirmed 06/20/18] Potassium Chloride [K-Dur] 20 meq PO DAILY PRN 06/20/18 [History Confirmed 06/20/18] [facility] Medical History Bilateral leg edema (Chronic) Dyspnea on exertion (Chronic) Atrial flutter (Chronic) Atrial fibrillation with rapid ventricular response (Chronic) Diabetes (Chronic) Legionnaires' disease (Resolved) Hyperlipidemia (Chronic) Essential hypertension (Chronic) Paroxysmal atrial fibrillation (Chronic) Surgical History Hx of appendectomy (Acute) History of cardioversion (Acute) History of colon resection (Resolved 2011) History of tonsillectomy (Resolved) History of hysterectomy (Resolved) History of cholecystectomy (Resolved) Family History Father CAD (coronary artery disease) Mother Hypertension CVA (cerebral vascular accident) Social History Smoking Status: Never smoker alcohol intake: current alcohol intake frequency: holidays/special occasions only Alcohol type: hard liquor substance use type: does not use caffeine: No what type of physical activity do you participate in: swimming frequency: 1-2 times per week duration: 45-60 minutes/day seatbelt use: always do you feel safe at home: Yes HPI HPI HPI: Patient is an 78 y/o female I am following for an update history and physical. Patient denies recent hospitalizations or illnesses. Patient has held her Pradexa. She has her bowel prep instructions. Patient's previous history per Dr. Castaneda: NETTIE MANE, is a 77 F who presents to the office today for evaluation for heme positive stools. Nettie is well known to me. 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 She states she is moving her bowels well and not complaining of any abdominal pain. She is extremely reluctant to have any colonoscopies done. ROS General General: No weight change, appetite, fatigue, colon cancer, breast cancer or weakness HEENT HEENT: No difficulty swallowing, eye injury, eye surgery, swollen glands or hoarseness Endo Endocrine: Yes diabetes mellitus; no thyroid disease, thyroid cancer, Hair loss, heat intolerance or cold intolerance Skin Skin: No rash or changing moles Musc Musculoskeletal: No back problems, arthritis, rheumatoid arthritis, gout or joint pain Cardio Cardiovascular: Yes high blood pressure; no murmur, pacemaker, heart disease, atrial fibrillation, heart attack, heart stent, palpitations, shortness of breat with exertion or chest pain Psych Psychiatric: No depression, anxiety or hearing voices Resp Respiratory: No shortness of breath, No sleep apnea, No cough, No COPD, No asthma, No emphysema, No wheezing Gastro Gastrointestinal: No abdominal pain, No nausea or vomiting, No diarrhea, No constipation, No blood in stool, No acid reflux, No hemorrhoids, No ulcers, No gallbladder problem, No black,tarry stools Dani Hematologic: Yes blood thinners (ASA 81 mg), No blood disorders, No bleeding, Yes anemia, No blood clots Neuro Neurologic: No system reviewed and no additional complaints, except as docu, No as per HPI, No abnormal walking, No abnormal hearing, No abnormal movements, No abnormal speech, No behavioral changes, No burning sensations, No confusion, No seizure-like activity, No unsteadiness, No dizziness, No localized weakness, No frequent falls, No headache(s), No lack of coordination, No loss of vision, No memory loss, No numbness, No other visual disturbances, No radiating pain, No restless legs, No sensory deficit, No fainting, No tingling, No tremor(s), No weakness, No other Exam Const General: cooperative, comfortable, no acute distress, healthy appearing [facility] Head: normal to inspection Eyes General: appearance normal, both eyes and all related structures Neck Neck mass: No Resp Effort AND Inspection: normal respiratory effort Auscultation: clear to auscultation bilaterally Cardio Rate: regular rate Rhythm: regular rhythm Heart Sounds: no murmurs GI Inspection: normal to inspection Palpation: soft Auscultation: normal bowel sounds Skin General: no rashes or lesions noted Neuro General: no focal motor deficits, CN's II-XI intact bilaterally Extrem General: normal to inspection Psych Appearance: grossly normal Assessment AND Plan Problems 1. Heme positive stool R19.[address] Castaneda will plan to preform a colonoscopy with possible biopsies. Procedure details, risks, and benefits have been explained. Patient has had the opportunity to ask and have questions answered. Patient verbally understands and agrees with the plan. Medications Discontinued: potassium chloride ER Discontinued Reason: O20 mEq (2 x 10 mEq) PO DAILY 180 tabs 3RF rder edited - Discontinuing original order Coding Level of Care Code No Charge Diagnoses Heme positive stool R19.5 Comment Update history and physical 06/20/18 1624 <Electronically signed by Zayra Medina PA-C> Date Zayra Medina PA-C Cosigner Signature: Date (if applicable) CC: CBC W/DIFF, AUTOMATED Collected: 05/31/2018 Status: F Source: NERI 12:31 PM [facility] REPOSITORY TYPE CODE TESTS RESULT OUT OF RANGE REFERENCE UNITS LAB L100.1000 4.4-11.0 K/mm3 Normal WBC 6.2 LAB L100.1200 4.2-5.4 M/mm3 Low RBC 4.11 LAB L100.1300 12.0-15.0 g/dl Low HGB 11.8 LAB L100.1400 37-47 % Low HCT 36.9 LAB L100.1500 81-99 fL Normal MCV 89.8 LAB L100.1600 27.0-32.0 pg Normal MCH 28.7 LAB L100.1700 32-36 g/gl Normal MCHC 32.0 LAB L100.1810 11.6-14.6 % Normal RDW CV 13.9 LAB L100.1820 35.1-43.9 fl High RDW SD 44.8 LAB L100.1900 150-450 K/mm3 Normal PLT 250 LAB L100.2000 6.2-12.0 fl Normal MPV 10.1 LAB L100.2100 47-70 % Normal NEUT% 66.7 LAB L100.2200 19-41 % Low LY% 17.7 LAB L100.2300 0-10 % High MONO% 10.6 LAB L100.2400 0-5 % Normal EO% 4.3 LAB L100.2500 0-1 % Normal BASO% 0.5 LAB L100.2550 0.0-0.9 % Normal IM GRAN % 0.200 Result Comment: IG% - Immature Granulocytes (promyelocytes, myelocytes and metamyelocytes) > 1% indicates that a LEFT SHIFT is Present. LAB L100.2620 2.0-7.7 X10 3/uL Normal Absolute Neut 4.2 LAB L100.2720 0.83-4.51 X10 3/ul Normal Absolute Lymph 1.10 Performed By: #### L100.0100 #### [facility] [address] [place], [address] COMPREHENSIVE METABOLIC Collected: 05/31/2018 Status: F Source: [facility] 12:31 PM [facility] REPOSITORY TYPE CODE TESTS RESULT OUT OF RANGE REFERENCE UNITS LAB L501.0100 74-106 mg/dL Normal GLU 106 Result Comment: Fasting Glucose result from 100 to 125 mg/dL suggests IMPAIRED HOMEOSTASIS per A.D.A. criteria. Please note revised GLUCOSE reference range effective 2017. LAB L501.1000 7-18 mg/dL High BUN 28 LAB L501.1100 0.55-1.02 mg/dL High CREAT,SERUM 1.25 Result Comment: The validity of the calculated GFR AND GFRAA in patients over 70 years has not been determined. Clinical correlation is essential. LAB L501.1110 >60 mL/min Low EST GFR 44 Result Comment: Non- GFR Calc LAB L501.1115 >60 mL/min Low EST GFR - AA 53 Result Comment: GFR Calc LAB L501.1300 10-20 RATIO High BUN/CRE 22.4 LAB L501.1500 6.4-8.2 g/dL T Normal PROT 7.3 LAB L501.1800 3.2-5.0 g/dL Normal ALB 3.8 LAB L501.1950 2.2-4.2 g/dL Normal GLOB 3.5 LAB L501.2000 0.9-2.4 RATIO Normal A/G 1.1 LAB L501.2200 8.5-10.1 mg/dL CA Normal 9.8 LAB L501.4100 15-37 U/L Normal AST 33 LAB L501.4305 45-117 U/L Normal ALK P 58 LAB L501.4405 13-56 U/L Normal ALT 29 LAB L501.4600 0.20-1.00 mg/dL T Normal BILI 0.60 LAB L501.5300 136-145 mmol/L NA Normal 139 LAB L501.5600 3.5-5.1 mmol/L K Normal 4.8 LAB L501.5900 98-107 mmol/L CL Normal 104 LAB L501.6100 21.0-32.0 mmol/L Normal CO2 29.0 LAB L501.6200 5-15 Normal GAP 6 Performed By: #### L500.4050, L500.4100 #### [facility] [address] [place], [address] LIPID PROFILE Collected: 05/31/2018 Status: F Source: [place] 12:31 PM [facility] REPOSITORY TYPE CODE TESTS RESULT OUT OF RANGE REFERENCE UNITS LAB L501.4900 200 mg/dL Normal CHOL 138 Result Comment: <200 mg/dL Desirable 200-240 mg/dL Borderline >240 mg/dL High Risk LAB L501.5000 mg/dL High TRIG 260 Result Comment: The drugs N-Acetylcysteine and Metamizole may falsely depress this assay. Serum Triglycerides Reference Interval Normal <150 mg/dL Borderline high 150 - 199 mg/dL High 200 - 499 mg/dL Very High > or = 500 mg/dL LAB L501.6400 mg/dL Normal HDL 55 Result Comment: The drugs N-Acetylcysteine and Metamizole may falsely depress this assay. Reference Range HDL <40 mg/dL Low HDL Cholesterol HDL >or= 60 mg/dL High HDL Cholesterol LAB L501.6500 0-130 mg/dL Normal LDL 31 LAB L501.6600 5-40 mg/dL High VLDL 52 Performed By: #### L500.4050, L500.4100 #### [facility] [address] [place], [address] MICROALB:CREAT Collected: 05/31/2018 Status: F Source: NERI RATIO,[facility] UR 12:31 PM [facility] REPOSITORY TYPE CODE TESTS RESULT OUT OF RANGE REFERENCE UNITS LAB L501.1200 NO RANGE EST. mg/dL Normal UR CREAT 96.80 LAB L502.0500 NO RANGE EST. mg/L Normal 10.8 MICROALBUMIN ,UR LAB L502.0600 <30 mg/g CRE mg/g CRE Normal 11.2 MALB:CREAT Performed By: #### L502.0250 #### [facility] [address] [facility] [address] [place], [place], [address] HEMOGLOBIN A1C Collected: 05/31/2018 Status: F Source: [facility] 12:31 PM [facility] REPOSITORY TYPE CODE TESTS RESULT OUT OF RANGE REFERENCE UNITS LAB L501.9985 4.2-6.3 % Normal HGB A1C 6.3 Performed By: #### L501.9985 #### [facility] [address] [facility] [address] [place], [place], [address] LIVER PROFILE Collected: 05/31/2018 Status: F Source: [facility] 12:00 PM [facility] REPOSITORY TYPE CODE TESTS RESULT OUT OF RANGE REFERENCE UNITS LAB L501.1500 6.4-8.2 g/dL Normal T PROT 7.9 LAB L501.1800 3.2-5.0 g/dL Normal ALB 3.9 LAB L501.1950 2.2-4.2 g/dL Normal GLOB 4.0 LAB L501.4100 15-37 U/L Normal AST 32 LAB L501.4305 45-117 U/L Normal ALK P 66 LAB L501.4405 13-56 U/L Normal ALT 31 LAB L501.4600 0.20-1.00 mg/dL Normal T BILI 0.50 LAB L501.4700 0.00-0.30 mg/dL Normal D BILI 0.12 Performed By: #### L500.3400, L500.4100 #### [facility] [address] [place], [place], [address] LIPID PROFILE Collected: 05/31/2018 Status: F Source: [facility] 12:00 PM [facility] REPOSITORY TYPE CODE TESTS RESULT OUT OF RANGE REFERENCE UNITS LAB L501.4900 200 mg/dL Normal CHOL 139 Result Comment: <200 mg/dL Desirable 200-240 mg/dL Borderline >240 mg/dL High Risk LAB L501.5000 mg/dL High TRIG 283 Result Comment: The drugs N-Acetylcysteine and Metamizole may falsely depress this assay. Serum Triglycerides Reference Interval Normal <150 mg/dL Borderline high 150 - 199 mg/dL High 200 - 499 mg/dL Very High > or = 500 mg/dL LAB L501.6400 mg/dL Normal HDL 54 Result Comment: The drugs N-Acetylcysteine and Metamizole may falsely depress this assay. Reference Range HDL <40 mg/dL Low HDL Cholesterol HDL >or= 60 mg/dL High HDL Cholesterol LAB L501.6500 0-130 mg/dL Normal LDL 28 LAB L501.6600 5-40 mg/dL High VLDL 57 Performed By: #### L500.3400, L500.4100 #### [facility] [address] [facility] [place], [address] SURGERY VISIT REPORT Observed: 03/29/2018 Status: F Source: [facility]ERI 1:51 PM [facility] REPOSITORY [facility] [address] [facility] [place] [address] OFFICE VISIT Date of Service: 03/29/18 MR#: [id number] Acct: [id number] Name: NETTIE MANE Munir Rep #: [id number] : 1940 Provider: Marvin Castaneda MD Age/Sex: 77/F Location: [facility] Status: Signed Intake Vital Signs03/29/18 Height 5 ft 03/29/18 Weight: 231 lb Intake Visit Reasons: + Hemoccult Experimental Welder Required: No Is patient in pain?: No Allergies No Known Allergies Allergy (Verified 03/29/18 13:09) Medications Aspirin [Aspirin, Baby] 81 mg PO DAILY@0800 10/12/14 [History Confirmed 03/29/18] Calcium Carb/Vitamin D [Caltrate-600 With Vit D Tab] 1 tab PO DAILY@0800 10/12/14 [History Confirmed 03/29/18] Multivitamins,Therapeutic [Multivitamin] 1 tab PO DAILY 10/12/14 [History Confirmed 03/29/18] dabigatran etexilate 150 mg capsule 150 mg PO BID #180 cap 11/16/17 [Rx Confirmed 03/29/18] furosemide 40 mg tablet 40 mg PO BID #180 tab 11/16/17 [Rx Confirmed 03/29/18] lisinopril 20 mg tablet 20 mg PO BID #180 tab 11/16/17 [Rx Confirmed 03/29/18] magnesium oxide 400 mg tablet 400 mg PO QDAY #90 tab 11/16/17 [Rx Confirmed 03/29/18] potassium chloride ER 10 mEq tablet,extended release(part/cryst) 20 meq PO DAILY #180 tab 11/16/17 [Rx Confirmed 03/29/18] sotalol 80 mg tablet 120 mg PO BID #270 tab 11/16/17 [Rx Confirmed 03/29/18] atorvastatin 20 mg tablet 20 mg PO QHS #90 tab 11/21/17 [Rx Confirmed 03/29/18] metformin 500 mg tablet 500 mg PO BID tab 11/21/17 [History Confirmed 03/29/18] ascorbic acid (vitamin C) 500 mg capsule 500 mg PO QDAY cap 03/29/18 [History Confirmed 03/29/18] gabapentin 600 mg tablet 600 mg PO TID 03/29/18 [History Confirmed 03/29/18] lidocaine 5 % topical patch 1 patch TOPICAL .COMPLEX 03/29/18 [History Confirmed 03/29/18] [facility] Medical History Bilateral leg edema (Chronic) Dyspnea on exertion (Chronic) Atrial flutter (Chronic) Atrial fibrillation with rapid ventricular response (Chronic) Diabetes (Chronic) Legionnaires' disease (Resolved) Hyperlipidemia (Chronic) Essential hypertension (Chronic) Paroxysmal atrial fibrillation (Chronic) Surgical History Hx of appendectomy (Acute) History of cardioversion (Acute) History of colon resection (Resolved 2011) History of tonsillectomy (Resolved) History of hysterectomy (Resolved) History of cholecystectomy (Resolved) Family History Father CAD (coronary artery disease) Mother Hypertension CVA (cerebral vascular accident) Social History Smoking Status: Never smoker alcohol intake: current alcohol intake frequency: holidays/special occasions only Alcohol type: hard liquor substance use type: does not use caffeine: No what type of physical activity do you participate in: swimming frequency: 1-2 times per week duration: 45-60 minutes/day seatbelt use: always do you feel safe at home: Yes HPI HPI HPI: NETTIE MANE, is a 77 F who presents to the office today for evaluation for heme positive stools. Nettie is well known to me. 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 She states she is moving her bowels well and not complaining of any abdominal pain. She is extremely reluctant to have any colonoscopies done. ROS General General: No weight change, appetite, fatigue, colon cancer, breast cancer or weakness HEENT HEENT: No difficulty swallowing, eye injury, eye surgery, swollen glands or hoarseness Endo Endocrine: Yes diabetes mellitus; no thyroid disease, thyroid cancer, Hair loss, heat intolerance or cold intolerance Skin Skin: No rash or changing moles Breast Breast: No left breast lump, right breast lump, nipple discharge, breast pain, abnormal mammogram, abnormal US or breast enlargement Musc Musculoskeletal: No back problems, arthritis, rheumatoid arthritis, gout or joint pain Cardio Cardiovascular: Yes high blood pressure; no murmur, pacemaker, heart disease, atrial fibrillation, heart attack, heart stent, palpitations, shortness of breat with exertion or chest pain Psych Psychiatric: No depression, anxiety or hearing voices Resp Respiratory: No shortness of breath, No sleep apnea, No cough, No COPD, No asthma, No emphysema, No wheezing Gastro Gastrointestinal: No abdominal pain, No nausea or vomiting, No diarrhea, No constipation, No blood in stool, No acid reflux, No hemorrhoids, No ulcers, No gallbladder problem, No black,tarry stools Dani Hematologic: Yes blood thinners (Pradaxa and ASA 81mg), No blood disorders, No bleeding, No anemia, No blood clots Neuro Neurologic: No system reviewed and no additional complaints, except as docu, No as per HPI, No abnormal walking, No abnormal hearing, No abnormal movements, No abnormal speech, No behavioral changes, No burning sensations, No confusion, No seizure-like activity, No unsteadiness, No dizziness, No localized weakness, No frequent falls, No headache(s), No lack of coordination, No loss of vision, No memory loss, No numbness, No other visual disturbances, No radiating pain, No restless legs, No sensory deficit, No fainting, No tingling, No tremor(s), No weakness, No other Exam Const General: well developed, no acute distress, well hydrated Orientation: oriented to person, oriented to place, oriented to time Chest Chest palpation AND inspection: normal inspection of the chest Breast Palpation: No nipple discharge Resp Effort AND Inspection: normal respiratory effort Auscultation: clear to auscultation bilaterally Percussion: percussion normal Cardio Rate: regular rate Rhythm: regular rhythm Heart Sounds: no murmurs GI Palpation: soft, no masses, no hepatosplenomegaly, nontender Rectal Exam: other Other: Rectal exam deferred. Assessment AND Plan Problems 1. Heme + stool R19.5 Plan I have discussed the above with the patient. I have offered the patient colonoscopy for evaluation. I have explained the risks/benefits of the procedure and described the procedure. I have discussed the risks with the patient, including but not limited to: infection, bleeding, perforation of the GI tract requiring emergency surgery, inability to complete the procedure, injury to any internal organs, complications of anesthesia, etc. - the patient understands and agrees to proceed. I have answered all the patient's questions to the patient's satisfaction and the patient has no further questions. The patient has been given instructions for the colon cleansing preparation. Does not want to have his colonoscopy done until June. We will get her scheduled with open access at that time. Coding Level of Care Code Off vis,new,level 2 Diagnoses Heme + stool R19.5 03/29/18 3041 <Electronically signed by Marvin Castaneda MD> Date Marvin Castaneda MD Cosigner Signature: Date (if applicable) CC: Freddie Arauz MD BASIC METABOLIC Collected: 01/15/2018 Status: F Source: NERI PROFILE (BMP) 11:47 AM [facility] REPOSITORY Order Comment: Order Date: 01/15/18 Order Info: 0667-1 - BMP TYPE CODE TESTS RESULT OUT OF RANGE REFERENCE UNITS LAB L501.0100 74-106 mg/dL Normal GLU 85 Result Comment: Please note revised GLUCOSE reference range effective 2017. LAB L501.1000 7-18 mg/dL High BUN 27 LAB L501.1100 0.55-1.02 mg/dL Normal CREAT,SERUM 0.94 Result Comment: The validity of the calculated GFR AND GFRAA in patients over 70 years has not been determined. Clinical correlation is essential. LAB L501.1110 >60 mL/min Normal EST GFR 61 Result Comment: Non- GFR Calc LAB L501.1115 >60 mL/min Normal EST GFR - AA 74 Result Comment: GFR Calc LAB L501.1300 10-20 RATIO High BUN/CRE 28.7 LAB L501.2200 8.5-10.1 mg/dL CA Normal 9.3 LAB L501.5300 136-145 mmol/L NA Normal 140 LAB L501.5600 3.5-5.1 mmol/L K Normal 4.2 LAB L501.5900 98-107 mmol/L CL Normal 105 LAB L501.6100 21.0-32.0 mmol/L Normal CO2 24.0 LAB L501.6200 5-15 Normal GAP 11 Performed By: #### L500.2500 #### [facility] [address] [place], [address] THYROID UPTAKE Observed: 01/07/2018 Status: F Source: [facility] SINGLE OR MULT 9:36 AM [facility] REPOSITORY [facility] Imaging Services [address] [place] [address] Thyroid Uptake Single or Mult MR#: [id number] Acct: [id number] Name: NETTIE MANE Rep #: [id number] : 1940 F 77 From: Giacomo Charlton DO PCP: Freddie Arauz MD Status: REG CLI Study: Thyroid Uptake Single or Mult Date of Exam: 01/07/18 Exam# [id number] Ordering Dr: Freddie Arauz MD CLINICAL: 77-year-old female with reported history of thyroid nodularity. I-123 THYROID UPTAKE and SCAN COMPARISON: Thyroid ultrasound report 12/25/2017 FINDINGS: The patient was administered a 298 uCi I-123 capsule by mouth. The 4-hour I-123 radioactive iodine thyroidal uptake was calculated to be 6.0 % (normal 5 to 25 %). The 24-hour I-123 radioactive iodine thyroidal uptake was calculated to be 17.0 % (normal 5 to 40 %). The I-123 thyroid scan demonstrates heterogeneous radiopharmaceutical concentration throughout both lobes of a U-shaped thyroid gland. There are no dominant colloidal parenchymal hypofunctioning-cold nodules noted in either lobe of the thyroid gland. NM/Thyroid Uptake Single or Mult IMPRESSION: 1. LOWER LIMITS OF NORMAL 4- and NORMAL 24-hour I-123 radioactive iodine thyroidal uptakes. Correlation with in vitro thyroid function studies may be of benefit. 2. 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 The incidence of malignant transformation and hypofunctioning regions in a multinodular gland is < 5% in the absence of previous head and neck radiation. Electronically Signed: Giacomo Charlton DO at 9:50 EST Tel , Service support , CC: Freddie Arauz MD Shotblaster: Signed THYROID Observed: 12/25/2017 Status: F Source: [place] 2:54 PM [facility] REPOSITORY [facility] Imaging Services [address] [place] [address] Thyroid MR#: [id number] Acct: [id number] Name: NETTIE MANE Rep #: [id number] : 1940 F 77 From: Alexis Munoz MD PCP: Freddie Arauz MD Status: REG CLI Study: Thyroid Date of Exam: 12/25/17 Exam# [id number] Ordering Dr: Freddie Arauz MD STUDY: THYROID ULTRASOUND REASON FOR EXAM: Female, 77 years old. Thyroid nodule. TECHNIQUE: Ultrasound evaluation of the thyroid was performed with real-time and static roe-scale imaging. COMPARISON: None. FINDINGS: RIGHT LOBE: The right lobe of the thyroid gland measures 3.9 cm x 1.7 cm x 1.2 cm. There is a homogeneous echotexture. There is a 3 mm x 3 mm x 2 mm cyst in the lower pole of the right lobe of the thyroid. LEFT LOBE: The left lobe of the thyroid gland measures 4.2 cm x 1.1 cm x 1.1 cm. There is a homogeneous echotexture. 2 subcentimeters hypoechoic solid nodules are seen. The larger measures 6 mm x 7 mm x 7 mm. This is in the midportion of the left lobe. ISTHMUS: The isthmus measures 4.0 mm. There is an 8 mm x 6 mm x 5 mm solid hypoechoic nodule in the isthmus. The regional lymph nodes are normal. US/Thyroid IMPRESSION: Nodules seen in both lobes as well as in the isthmus. Correlation with a nuclear medicine thyroid uptake and scan is recommended. Electronically Signed: Alexis Munoz MD at 15:01 EST Tel [phone], Service support , CC: Freddie Arauz MD Shotblaster: Signed VITAMIN B12 Collected: 12/21/2017 Status: F Source: [place] 11:50 AM [facility] REPOSITORY Order Comment: PLEASE ADD ON JORDAN [facility] B12 FOL AND URINE CULTURE TO BLOOD AND URINE COLLECTED 12/20/17 PER . TYPE CODE TESTS RESULT OUT OF REFERENCE UNITS RANGE LAB L503.0105 211-911 pg/mL High Vitamin B12 1021 Performed By: #### L503.0105 #### [facility] [address] [place], [address] Observed: 12/21/2017 Status: F Source: [place] CULTURE, URINE 11:50 AM [facility] REPOSITORY PLEASE ADD ON JORDAN IBC B12 FOL AND URINE CULTURE TO BLOOD AND URINE COLLECTED 12/20/17 PER . Urine Culture ORGANISM 1: Escherichia coli [place] Count >100,000 Escherichia coli: REACTION Amoxacillin/Clavulanic Acid $ <=2 S Ampicillin $ <=2 S Ampicillin/Sulbactam $ <=2 S Cefazolin $ <=4 S Cefepime $ <=1 S Ceftriaxone $ <=1 S Ciprofloxacin $ >=4 R ESBL - Ertapenim $$$ <=0.5 S Gentamicin $ <=1 S Imipenem *NF <=0.25 S Levofloxacin $ >=8 R Nitrofurantoin $ 64 I Piperacillin/Tazobactam $$ <=4 S Tobramycin $ <=1 S Trimethoprim/Sulfametho $ >=320 R (NF) indicates non-formulary drug at [facility]. Approval by Infectious Disease Specialist required before non-formulary drugs may be ordered and/or dispensed. Performed By: #### M100.0650 #### [facility] [address] [place], [address] CBC W/DIFF, AUTOMATED Collected: 12/20/2017 Status: F Source: [place] 11:50 AM [facility] REPOSITORY Order Comment: Order Date: 12/20/17 Order Info: 0184-1 - CBCD TYPE CODE TESTS RESULT OUT OF RANGE REFERENCE UNITS LAB L100.1000 4.4-11.0 K/mm3 Normal WBC 7.0 LAB L100.1200 4.2-5.4 M/mm3 Low RBC 3.85 LAB L100.1300 12.0-15.0 g/dl Low HGB 11.4 LAB L100.1400 37-47 % Low HCT 35.0 LAB L100.1500 81-99 fL Normal MCV 90.9 LAB L100.1600 27.0-32.0 pg Normal MCH 29.6 LAB L100.1700 32-36 g/gl Normal MCHC 32.6 LAB L100.1810 11.6-14.6 % Normal RDW CV 13.6 LAB L100.1820 35.1-43.9 fl High RDW SD 44.2 LAB L100.1900 150-450 K/mm3 Normal PLT 276 LAB L100.2000 6.2-12.0 fl Normal MPV 10.5 LAB L100.2100 47-70 % Normal NEUT% 67.9 LAB L100.2200 19-41 % Low LY% 16.8 LAB L100.2300 0-10 % Normal MONO% 10.0 LAB L100.2400 0-5 % Normal EO% 4.6 LAB L100.2500 0-1 % Normal BASO% 0.4 LAB L100.2550 0.0-0.9 % Normal IM GRAN % 0.300 Result Comment: IG% - Immature Granulocytes (promyelocytes, myelocytes and metamyelocytes) > 1% indicates that a LEFT SHIFT is Present. LAB L100.2620 2.0-7.7 X10 3/uL Normal Absolute Neut 4.8 LAB L100.2720 0.83-4.51 X10 3/ul Normal Absolute Lymph 1.18 Performed By: #### L100.0100, L500.2500, L501.9520, L506.0400, L501.9985, L502.0250 #### [facility] [address] [place], [address] BASIC METABOLIC Collected: 12/20/2017 Status: F Source: [place] [facility]FILE [facility] 11:50 AM [facility] REPOSITORY Order Comment: PLEASE ADD ON JORDAN [facility] B12 FOL AND URINE CULTURE TO BLOOD AND URINE COLLECTED 12/20/17 PER . Order Date: 12/20/17 Order Info: 0667-1 - BMP Order Info: 36956-8 - MG Order Info: 3016-3 - TSH Order Info: 3024-7 - T4F Is Patient Taking Vitamins or Folic Acid Supplements? N TYPE CODE TESTS RESULT OUT OF RANGE REFERENCE UNITS LAB L501.0100 74-106 mg/dL Normal GLU 85 Result Comment: Please note revised GLUCOSE reference range effective 2017. LAB L501.1000 7-18 mg/dL High BUN 29 LAB L501.1100 0.55-1.02 mg/dL High CREAT,SERUM 1.37 Result Comment: The validity of the calculated GFR AND GFRAA in patients over 70 years has not been determined. Clinical correlation is essential. LAB L501.1110 >60 mL/min Low EST GFR 40 Result Comment: Non- GFR Calc LAB L501.1115 >60 mL/min Low EST GFR - AA 48 Result Comment: GFR Calc LAB L501.1300 10-20 RATIO High BUN/CRE 21.2 LAB L501.2200 8.5-10.1 mg/dL CA Normal 9.5 LAB L501.5300 136-145 mmol/L NA Normal 137 LAB L501.5600 3.5-5.1 mmol/L K Normal 4.4 LAB L501.5900 98-107 mmol/L CL Normal 101 LAB L501.6100 21.0-32.0 mmol/L Normal CO2 26.0 LAB L501.6200 5-15 Normal GAP 10 Performed By: #### L100.0100, L500.2500, L501.9520, L506.0400, L501.9985, L502.0250 #### [facility] [address] [place], [place], [address] THYROID STIM HORMONE Collected: 12/20/2017 Status: F Source: [place] (TSH) 11:50 AM [facility] REPOSITORY Order Comment: PLEASE ADD ON JORDAN [facility] B12 FOL AND URINE CULTURE TO BLOOD AND URINE COLLECTED 12/20/17 PER . Order Date: 12/20/17 Order Info: 0667-1 - BMP Order Info: 84809-9 - MG Order Info: 3016-3 - TSH Order Info: 3024-7 - T4F Is Patient Taking Vitamins or Folic Acid Supplements? N TYPE CODE TESTS RESULT OUT OF RANGE REFERENCE UNITS LAB L501.9520 0.358-3.74 uIU/mL Normal TSH 2.86 Performed By: #### L100.0100, L500.2500, L501.9520, L506.0400, L501.9985, L502.0250 #### [facility] [address] [place], [place], [address] T4 FREE DIRECT Collected: 12/20/2017 Status: F Source: [place] 11:50 AM [facility] REPOSITORY Order Comment: PLEASE ADD ON JORDAN [facility] B12 FOL AND URINE CULTURE TO BLOOD AND URINE COLLECTED 12/20/17 PER . Order Date: 12/20/17 Order Info: 0667-1 - BMP Order Info: 35875-1 - MG Order Info: 3016-3 - TSH Order Info: 3024-7 - T4F Is Patient Taking Vitamins or Folic Acid Supplements? N TYPE CODE TESTS RESULT OUT OF RANGE REFERENCE UNITS LAB L506.0400 0.76-1.46 ng/dL Normal T4 FREE 1.04 DIRECT Performed By: #### L100.0100, L500.2500, L501.9520, L506.0400, L501.9985, L502.0250 #### [facility] [address] [place], [place], [address] HEMOGLOBIN A1C Collected: 12/20/2017 Status: F Source: [place] 11:50 AM [facility] REPOSITORY Order Comment: Order Date: 12/20/17 Order Info: 4548-4 - A1C TYPE CODE TESTS RESULT OUT OF RANGE REFERENCE UNITS LAB L501.9985 4.2-6.3 % High HGB A1C 6.4 Performed By: #### L100.0100, L500.2500, L501.9520, L506.0400, L501.9985, L502.0250 #### [facility] [address] [place], [place], [address] MICROALB:CREAT Collected: 12/20/2017 Status: F Source: [place] RATIO,RANDOM UR 11:50 AM [facility] REPOSITORY Order Comment: Order Date: 12/20/17 Order Info: 0779-1 - MIACRE TYPE CODE TESTS RESULT OUT OF RANGE REFERENCE UNITS LAB L501.1200 NO RANGE EST. mg/dL Normal UR CREAT 111.00 LAB L502.0500 NO RANGE EST. mg/L Normal 36.6 MICROALBUMIN ,UR LAB L502.0600 <30 mg/g CRE mg/g CRE High 33.0 MALB:CREAT Performed By: #### L100.0100, L500.2500, L501.9520, L506.0400, L501.9985, L502.0250 #### [facility] [address] [place], [address] MAGNESIUM Collected: 12/20/2017 Status: F Source: [place] 11:50 AM [facility] REPOSITORY Order Comment: PLEASE ADD ON JORDAN IBC B12 FOL AND URINE CULTURE TO BLOOD AND URINE COLLECTED 12/20/17 PER . Order Date: 12/20/17 Order Info: 0667-1 - BMP Order Info: 56463-8 - MG Order Info: 3016-3 - TSH Order Info: 3024-7 - T4F Is Patient Taking Vitamins or Folic Acid Supplements? N TYPE CODE TESTS RESULT OUT OF RANGE REFERENCE UNITS LAB L501.5200 1.6-2.6 mg/dL Normal MG 2.4 Result Comment: Please note revised Magnesium reference range effective 2017. Performed By: #### L501.5200 #### [facility] [address] [place], [address] URINALYSIS, COMPLETE Collected: 12/20/2017 Status: F Source: [place] 11:50 AM [facility] REPOSITORY Order Comment: How was Urine Obtained? CLEAN CATCH TYPE CODE TESTS RESULT OUT OF REFERENCE UNITS RANGE LAB L400.3000 Yellow COLOR Normal Yellow LAB L400.3050 Clear CLARITY Normal Cloudy LAB L400.3200 Normal mg/dl GLUCOSE, UR Normal Normal LAB L400.3300 Negative mg/dL BILIRUBIN Normal URINE Negative LAB L400.3400 Negative mg/dl KETONE UR Normal Negative LAB L400.3465 1.002-1.030 SP.GR. Normal DIPSTX 1.015 LAB L400.3550 5.0 - 8.0 pH UR Normal 5.0 LAB L400.3600 Negative mg/dl PROT DIPSTX Normal Negative LAB L400.3700 Normal mg/dl UROBILI Normal Normal LAB L400.3750 Negative NITRITE UR High Positive LAB L400.3780 Negative /ul OCCULT High BLOOD-UR 10 LAB L400.3800 Negative /ul LEUK High ESTERASE 500 LAB L400.4050 0-5 /hpf WBC Normal 25-50 SEEN LAB L400.4100 0-5 /hpf RBC-UA Normal 0 SEEN LAB L400.4150 5-10 /hpf SQUAM EPI Normal 0-5 SEEN LAB L400.4300 None Seen /hpf BACTERIA Normal 4+ LAB L400.4350 <or=2+ /hpf MUCUS, Normal URINE RARE LAB L400.4200 0-5 /hpf Normal TRANSITIONAL EP 0-5 SEEN LAB L400.4250 0-5 /hpf RENAL EPI Normal 0-5 SEEN LAB L400.4400 0-5 /lpf HYALINE Normal CAST 0-5 SEEN Performed By: #### L400.0001 #### [facility] [address] [place], [address] IRON+IRON BINDING Collected: 12/20/2017 Status: F Source: [facility] 11:50 AM [facility] REPOSITORY Order Comment: PLEASE ADD ON JORDAN IBC B12 FOL AND URINE CULTURE TO BLOOD AND URINE COLLECTED 12/20/17 PER . Order Date: 12/20/17 Order Info: 0667-1 - BMP Order Info: 01783-4 - MG Order Info: 3016-3 - TSH Order Info: 3024-7 - T4F Is Patient Taking Vitamins or Folic Acid Supplements? N TYPE CODE TESTS RESULT OUT OF RANGE REFERENCE UNITS LAB L503.6075 250-450 ug/dL TIBC Normal 378 LAB L503.6150 50-170 ug/dL IRON Normal 64 LAB L503.6250 15.0-55.0 % IRON Normal SATURATION 16.9 Performed By: #### L503.6030, L503.6550, L506.0250 #### [facility] [address] [place], [address] FERRITIN Collected: 12/20/2017 Status: F Source: [place] 11:50 AM [facility] REPOSITORY Order Comment: PLEASE ADD ON JORDAN IBC B12 FOL AND URINE CULTURE TO BLOOD AND URINE COLLECTED 12/20/17 PER . Order Date: 12/20/17 Order Info: 0667-1 - BMP Order Info: 62691-2 - MG Order Info: 3016-3 - TSH Order Info: 3024-7 - T4F Is Patient Taking Vitamins or Folic Acid Supplements? N TYPE CODE TESTS RESULT OUT OF RANGE REFERENCE UNITS LAB L503.6550 8-252 ng/mL Normal FERRITIN 36 Performed By: #### L503.6030, L503.6550, L506.0250 #### [facility] [address] [place], [address] FOLATES, (FOLIC ACID) Collected: 12/20/2017 Status: F Source: [place] 11:50 AM [facility] REPOSITORY Order Comment: PLEASE ADD ON JORDAN IBC B12 FOL AND URINE CULTURE TO BLOOD AND URINE COLLECTED 12/20/17 PER . Order Date: 12/20/17 Order Info: 0667-1 - BMP Order Info: 42487-4 - MG Order Info: 3016-3 - TSH Order Info: 3024-7 - T4F Is Patient Taking Vitamins or Folic Acid Supplements? N TYPE CODE TESTS RESULT OUT OF RANGE REFERENCE UNITS LAB L506.0250 3.1-55.4 ng/mL Normal FOLATES 47.90 Result Comment: Slight Hemolysis, Result may be falsely increased. Performed By: #### L503.6030, L503.6550, L506.0250 #### [facility] [address] [place], [address] BASIC METABOLIC Collected: 12/07/2017 Status: F Source: [place] PROFILE (BMP) 2:20 PM [facility] REPOSITORY TYPE CODE TESTS RESULT OUT OF RANGE REFERENCE UNITS LAB L501.0100 74-106 mg/dL Normal GLU 106 LAB L501.1000 7-18 mg/dL High BUN 26 LAB L501.1100 0.55-1.02 mg/dL High 1.30 CREAT,SERUM Result Comment: The validity of the calculated GFR AND GFRAA in patients over 70 years has not been determined. Clinical correlation is essential. LAB L501.1110 >60 mL/min Low EST GFR 42 Result Comment: Non- GFR Calc LAB L501.1115 >60 mL/min Low EST GFR - AA 51 Result Comment: GFR Calc LAB L501.1300 10-20 RATIO Normal BUN/CRE 20.0 LAB L501.2200 8.5-10.1 mg/dL CA Normal 9.3 LAB L501.5300 136-145 mmol/L NA Normal 138 LAB L501.5600 3.5-5.1 mmol/L K Normal 4.4 LAB L501.5900 98-107 mmol/L CL Normal 100 LAB L501.6100 21.0-32.0 mmol/L Normal CO2 29.0 LAB L501.6200 5-15 Normal GAP 9 Performed By: #### L500.2500 #### [facility] [address] [place], [address] ALLERGIES ALLERGIES DATE TYPE / CODE NAME / CODE REACTION SEVERITY SOURCE 08/14/2018 Drug No Known Unknown [facility] Allergy/4160 Allergies/F00 Hospital 05087(SNOMED 3396591(RXNOR Repository CT) M) ENCOUNTERS ENCOUNTERS ADMIT/DISCHARGE ACCOUNT ADMITTING ENCOUNTER LOCATION SOURCE NUMBER CLASS 10/15/2018 [id number] Ambulatory N[place] 5 [facility] ing:MFPLAB Repository 08/14/2018/ [id number] Ambulatory BMSBuilding:B [place] 8 5 [facility] Repository 08/13/2018 [id number] Ambulatory BMSBuilding:B [place] 7 [facility] Repository 06/24/2018/ [id number] [place] 8 9 [facility] ing:EN Repository 06/24/2018 [id number] Ambulatory BMSBuilding:B [place] 3 MS.[facility] Repository 06/20/2018/ [id number] Ambulatory BMSBuilding:B [place] 8 2 [facility] Repository 05/31/2018 [id number] Ambulatory Neri [place] 1 [facility] ing:MTLAB Repository 03/29/2018 [id number] Ambulatory BMSBuilding:B [place] 3 [facility] Repository 03/29/2018/ [id number] Ambulatory BMSBuilding:B [place] 8 4 [facility] Repository 01/15/2018 [id number] Ambulatory [place] Neri 8 [facility] ing:MFPLAB Repository 01/08/2018 [id number] Ambulatory [place] Neri 9 [facility] ing:NM Repository 01/07/2018 [id number] [place] 8 [facility] ing:NM Repository 12/25/2017 [id number] Amb[place] 4 [facility] ing:USHP Repository 12/20/2017 [id number] Ambulatory Neri [place] 5 [facility] ing:MFPLAB Repository 12/07/2017 [id number] [place] 0 [facility] ing:MTLAB Repository PAYERS PAYERS ENCOUNTER GUARANTOR PAYER SUBSCRIBER SOURCE 10/15/2018 NETTIE E Primary NETTIE E [place] [id number] Insurance:HUMANA FERGUSONDOB: Community [place] MEDICARE PPOPolicy [id number] [facility] [address] [id number]: (330) Date:2218-10-17XT [phone] () [address] [place] [phone]: 10/15/2018 Secondary NOT GIVENUNK [place] Insurance:SELF PAY [facility] Number: Effective Repository Date:2018-10-15 08/14/2018 NETTIE E Primary NETTIE E [place] [id number] Insurance:HUMANA FERGUSONDOB: Community [place] MEDICARE PPOPolicy [id number] [facility] [address] [place] [id number]: (330) Date:2193-58-00IF [phone] () [address] [place] [phone]: 08/14/2018 Secondary NOT GIVENUNK [place] Insurance:SELF PAY [facility] Number: Effective Repository Date:2018-08-14 08/13/2018 NETTIE E Primary NETTIE E [place] [id number] Insurance:HUMANA FERGUSONDOB: Community [place] [employer]ICARE PPOPolicy [id number] [facility] [address] [place] [id number]: (330) Date:4829-54-56AZ [phone] () [address] [place] [phone]: 08/13/2018 Secondary NOT GIVENUNK [place] Insurance:SELF PAY [facility] Number: Effective Repository Date:2018-08-13 06/24/2018 NETTIE E Primary NETTIE E [place] [id number] Insurance:HUMANA FERGUSONDOB: Community [place] MEDICARE PPOPolicy [id number] Number: Repository [address] [place] [id number]: (330) Date:3447-10-39ZI [phone] () [address] [place] [phone]: 06/24/2018 Secondary NOT GIVENUNK [place] Insurance:SELF PAY [facility] Number: Effective Repository Date:2018-06-14 06/24/2018 NETTIE E Primary NETTIE E [place] [id number] Insurance:HUMANA FERGUSONDOB: Community [place] [employer]ICARE PPOPolicy [id number] Number: Repository [address] [place] [id number]: (330) Date:3042-27-53UI [phone] () [address] [place] [phone]: 06/24/2018 Secondary NOT GIVENUNK [place] Insurance:SELF PAY [facility] Number: Effective Repository Date:2018-06-24 06/20/2018 NETTIE E Primary NETTIE E [place] [id number] Insurance:HUMANA FERGUSONDOB: Community [place] [employer] PPOPolicy [id number] Number: Repository [address] [place] [id number]: (330) Date:1122-21-54NM [phone] () [address] [place] [phone]: 06/20/2018 Secondary NOT GIVENUNK [place] Insurance:SELF PAY [facility] Number: Effective Repository Date:2018-06-20 05/31/2018 NETTIE E Primary NETTIE E [place] [id number] Insurance:HUMANA FERGUSONDOB: Community [place] [employer] PPOPolicy [id number] WAYUNIT Number: Repository [address] DICKEY [id number]: (330) Date:7815-18-47QN [phone] () [address] [place] [phone]: 05/31/2018 Secondary NOT GIVENUNK [place] Insurance:SELF PAY [facility] Number: Effective Repository Date:2018-05-31 03/29/2018 NETTIE E Primary NETTIE E [place] [id number] Insurance:HUMANA FERGUSONDOB: Community [place] [employer] PPOPolicy [id number] [facility] Repository [address] [place] [id number]: (330) Date:8617-86-38NQ [phone] () [address] [place] [phone]: 03/29/2018 Secondary NOT GIVENUNK [place] Insurance:SELF PAY [facility] Number: Effective Repository Date:2018-03-20 03/29/2018 NETTIE E Primary NETTIE E [place] [id number] Insurance:HUMANA FERGUSONDOB: Community [place] [employer] PPOPolicy [id number]-[facility] Number: Repository [address] [place] [id number]: (330) Date:5226-52-60JR [phone] () [address] [place], [place] [address]WP: 03/29/2018 Secondary NOT GIVENUNK [place] Insurance:SELF PAY [facility] Number: Effective Repository Date:2018-03-29 01/15/2018 NETTIE E Primary NETTIE E [place] [id number] Insurance:HUMANA FERGUSONDOB: Community [place] [employer] PPOPolicy [id number] [facility] Number: Repository [address] [place] [id number]: (330) Date:6576-58-38BZ [phone] () [id number] [place], [place] [address]WP: 01/15/2018 Secondary NOT GIVENUNK [place] Insurance:SELF PAY [facility] Number: Effective Repository Date:2018-01-15 01/08/2018 NETTIE E Primary NETTIE E [place] [id number] Insurance:HUMANA FERGUSONDOB: Community [place] PPOPolicy [id number] [facility]: Repository [address] [place] [id number]: (330) Date:3506-73-21LK [phone] (HP) [address] [place], [place] [address]WP: 01/08/2018 Secondary NOT GIVENUNK [place] Insurance:SELF PAY [facility] Number: Effective Repository Date:2017-12-28 01/07/2018 NETTIE E Primary NETTIE E [place] [id number] Insurance:HUMANA FERGUSONDOB: Community [place] PPOPolicy [id number] [facility]: Repository [address] [id number]: (330) Date:1471-13-44DL [phone] (HP) [address] [place] [address]WP: 01/07/2018 Secondary NOT GIVENUNK [place] Insurance:SELF PAY [facility] Number: Effective Repository Date:2017-12-28 12/25/2017 NETTIE E Primary NETTIE E [place] [id number] Insurance:HUMANA FERGUSONDOB: Community [place] [employer] PPOPolicy [id number] [facility]: [place] [id number]: (330) Date:3406-34-03KN [phone] () [address] [place] [phone]: 12/25/2017 Secondary NOT GIVENUNK [place] Insurance:SELF PAY [facility] Number: Effective Repository Date:2017-12-20 12/20/2017 NETTIE E Primary NETTIE E [place] [id number] Insurance:HUMANA FERGUSONDOB: Community [place] [employer] PPOPolicy [id number] [facility]: Repository [address] [place] [id number]: (330) Date:8936-77-74YH [phone] () [address] [place] [phone]: 12/20/2017 Secondary NOT GIVENUNK [place] Insurance:SELF PAY [facility] Number: Effective Repository Date:2017-12-20 12/07/2017 NETTIE E Primary NETTIE E [place] [id number] Insurance:HUMANA FERGUSONDOB: Community [place] [employer] PPOPolicy [id number] [facility]: Repository [address] [place] [id number]: (330) Date:6054-21-67YV [phone] () [address] [place] [phone]: 12/07/2017 Secondary NOT GIVENUNK [place] Insurance:SELF PAY [facility] Number: Effective Repository Date:2017-12-07
== END ==
PROVIDERS: Family Provider Family Medicine; PCP Family Medicine; Visit Provider Family Medicine
DX: I12.9 Hypertensive chronic kidney disease with stage 1 through stage 4 chronic kidney disease, or unspecified chronic kidney disease (principal); E11.22 Type 2 diabetes mellitus with diabetic chronic kidney disease; N18.3 Chronic kidney disease, stage 3 (moderate); I48.0 Paroxysmal atrial fibrillation; E78.5 Hyperlipidemia, unspecified
CPT/HCPCS: 36415; 80053; 80061; 81001; 82043; 82306; 82570; 83036; 83735; 84156; 85025

== ENCOUNTER → 2019-03-25 | Outpatient (CLI) | payer MEDICARE, SELFPAY ==
[2018-08-14 13:26] VITALS: BMI 44.2
[2019-03-25 12:56] LABS: Hemoglobin A1c 6.5 % (4.2-6.3)
[2019-03-25 13:27] LABS: AST(SGOT) 25 U/L (15-37); Alanine Aminotransfer ALT/SGPT 22 U/L (13-56); Albumin, Serum 3.4 g/dL (3.2-5.0); Alkaline Phosphatase 65 U/L (45-117); Anion Gap 9 (5-15); BUN 15 mg/dL (7-18); BUN/Creat Ratio 21.5 RATIO (10-20); Calcium,Total 8.8 mg/dL (8.5-10.1); Chloride 105 mmol/L (98-107); Cholesterol 132 mg/dL (200); EST Glomerular Filtration Rate 86 mL/min (>60); Est Glom Filt Rate - Afr Amer 104 mL/min (>60); Ferritin 32 ng/mL (8-252); Globulin 3.5 g/dL (2.2-4.2); Glucose 116 mg/dL (74-106); High Density Lipoprotein 52 mg/dL; Iron 56 ug/dL (50-170); Iron Binding Capacity,Total 341 ug/dL (250-450); Magnesium 2.1 mg/dL (1.6-2.6); PERCENT IRON SATURATION 16.4 % (15.0-55.0); Potassium 4.2 mmol/L (3.5-5.1); Protein, Total 6.9 g/dL (6.4-8.2); Sodium Level 142 mmol/L (136-145); Triglycerides 198 mg/dL; Very Low Density Lipoprotein 40 mg/dL (5-40)
[2019-03-25 13:59] LABS: Color, Urine Yellow (Yellow); Glucose, Dipstick Normal (Normal); Ketone-Dipstick Negative (Negative); Leukocyte Esterase-Dipstick 500 /ul (Negative); Nitrite-Dipstick Positive (Negative); Occult Blood-Urine 150 /ul (Negative); Protein-Dipstick 30 mg/dl (Negative); Specific Gravity, Urine 1.015 (1.002-1.030); Urine Bilirubin Dipstick Negative (Negative); Urine Clarity Cloudy (Clear); Urine Urobilinogen Normal (Normal); Urine pH 6.5 (5.0 - 8.0)
[2019-03-25 14:03] LABS: Vitamin B12 361 pg/mL (211-911); Vitamin D,25 Hydroxy 36.4 ng/mL (29.95-100.01)
[2019-03-25 14:05] LABS: White Blood Cells >100 SEEN /hpf (0-5)
[2019-03-25 14:06] LABS: Bacteria 4+ /hpf (None Seen); Mucous, Urine RARE /hpf (<or=2+); Red Blood Cells-Urine 0-5 SEEN /hpf (0-5); Squamous Epithelial Cells - UA 0-5 SEEN /hpf (5-10)
[2019-03-25 14:30] LABS: Microalbumin:Creatinine Ratio 61.5 mg/g CRE (<30 mg/g CRE)
== END | disposition home or self-care (01) ==
PROVIDERS: Family Provider Family Medicine; PCP Family Medicine; Referring Provider Family Medicine; Visit Provider Family Medicine
DX: E78.5 Hyperlipidemia, unspecified (principal); I48.0 Paroxysmal atrial fibrillation; D64.9 Anemia, unspecified; I12.9 Hypertensive chronic kidney disease with stage 1 through stage 4 chronic kidney disease, or unspecified chronic kidney disease; E11.22 Type 2 diabetes mellitus with diabetic chronic kidney disease; N18.3 Chronic kidney disease, stage 3 (moderate)
CPT/HCPCS: 36415; 80053; 80061; 81001; 82043; 82306; 82570; 82607; 82728; 82746; 83036; 83540; 83550; 83735

== ENCOUNTER → 2019-09-02 | Outpatient (CLI) | payer MEDICARE, SELFPAY ==
[2018-08-14 13:26] VITALS: BMI 44.2
[2019-09-02 13:47] LABS: Basophil# 0.03 X10^3/uL; Basophil% 0.4 % (0-1); Eosinophil# 0.28 X10^3/uL; Eosinophils% 4.1 % (0-5); Hematocrit 36.4 % (37-47); Hemoglobin 11.4 g/dL (12.0-15.0); Lymphocyte % 14.6 % (19-41); Mean Corp Hgb Conc 31.3 g/dL (32-36); Mean Corpuscular Hgb 27.3 pg (27.0-32.0); Mean Corpuscular Volume 87.1 fL (81-99); Mean Platelet Vol. 9.8 fl (6.2-12.0); Monocyte# 0.57 X10^3/uL; Monocyte% 8.3 % (0-10); NRBC Flagged by Analyzer 0 % (0-5); Neutrophil # 4.96 X10^3/uL (2.7-7.7); Neutrophil % 72.3 % (47-70); Platelet Count 259 K/mm3 (150-450); RBC Distribution Width CV 14.5 % (11.6-14.6); RBC Distribution Width SD 45.3 fl (35.1-43.9); Red Blood Count 4.18 M/mm3 (4.2-5.4); White Blood Count 6.9 K/mm3 (4.4-11.0)
[2019-09-02 14:15] LABS: Cholesterol 149 mg/dL (200); High Density Lipoprotein 50 mg/dL; Magnesium 2.2 mg/dL (1.6-2.6); Triglycerides 241 mg/dL; Very Low Density Lipoprotein 48 mg/dL (5-40)
[2019-09-02 14:16] LABS: Hemoglobin A1c 6.4 % (4.2-6.3)
[2019-09-02 14:19] LABS: Microalbumin,Random Urine 52.3 mg/L (NO RANGE EST.); Microalbumin:Creatinine Ratio 52.7 mg/g CRE (<30 mg/g CRE)
== END | disposition home or self-care (01) ==
LOC: MTLAB 10:58
PROVIDERS: Family Provider Family Medicine; PCP Family Medicine; Referring Provider Physician Assistant Medical; Visit Provider Physician Assistant Medical
DX: I48.0 Paroxysmal atrial fibrillation (principal); E11.9 Type 2 diabetes mellitus without complications; D64.9 Anemia, unspecified; E78.5 Hyperlipidemia, unspecified
CPT/HCPCS: 36415; 80061; 82043; 82570; 83036; 83735; 85025

== ENCOUNTER 2019-10-12 11:58 | Emergency (ER) | payer MEDICARE, SELFPAY ==
[2019-09-12 14:54] VITALS: BMI 40.9
[2019-10-12 11:59] VITALS: BP 171/118; PULSE 87; RESP 22; TEMP 36.6; O2SAT 95; BMI 41.0
--- NOTE | 2019-10-12 12:33 | EKG12_ITS ---
Test Reason : SOB Blood Pressure : / mmHG Vent. Rate : 084 BPM Atrial Rate : 084 BPM P-R Int : 154 ms QRS Dur : 072 ms QT Int : 360 ms P-R-T Axes : 069 021 029 degrees QTc Int : 425 ms Sinus rhythm with Premature supraventricular complexes and with occasional Premature ventricular comp lexes Nonspecific ST abnormality Abnormal ECG Confirmed by KIRSTEN NELSON, LEVI ([id number]), editor producer SHANNAN DUNBAR ([id number]) on 10/15/2019 11:37:07 AM Referred By: ELYSIA Confirmed By:LEVI CURTIS MD
--- NOTE | 2019-10-12 12:35 | ED.DCSUM_ITS ---
History of Present Illness Chief Complaint: Shortness of Breath Informant: Patient Known exposure: Yes - daughter, DELORIS 1 week ago Onset: Days Context: Gradual Onset Timing: Continuous Quality: Orthopnea, Wheezing Associated Symptoms: Cough, Green sputum Chest Pain: None Narrative: Patient is a 79-year-old female with history of fibrillation, hyperlipidemia and hypertension presenting from home for worsening cough and shortness of breath. Patient states is been going on for the past few days however last night when she was lying down she felt like it was hard to breathe. She denies associated fever or chills. She denies any nausea, vomiting, chest pain, abdominal pain, GI or symptoms. Patient states she has home alone. She notes that she has not taken her morning medication is due for her meds. Patient is on Pradaxa for history of atrial fibrillation. She states she been compliant with her medicin es. She states she has chronic swelling of her legs but is unchanged. She denies any other complaints at this time. Past Medical History - Allergies and Home Meds Allergies/Adverse Reactions: Allergies No Known Allergies Allergy (Verified 10/12/19 12:01) Primary Care Physician: Freddie Arauz MD [Primary Care Provider] - Past Medical History: - - Atrial fibrillation, diabetes mellitus, hyperlipidemia, hypertension Surgical History: cholecystectomy, hysterectomy, tonsillectomy Lives: Alone Smoking Status: Never smoker Review of Systems General: Denies: Chills, Fever, Sweats Cardiovascular: Denies: Chest pain, Palpitations Respiratory: Reports: Dyspnea, Cough, Dyspnea on exertion, Orthopnea Gastrointestinal: Denies: Abdominal pain, Nausea, Vomiting, Diarrhea, Melena, Hematochezia Genitourinary: Denies: Dysuria, Hematuria, Frequency Skin: Denies: Rash Neurological: Denies: Headache, Weakness, Numbness Physical Exam Vital Signs/Narrative: Vital Signs Temp Pulse Resp BP Pulse Ox 10/12/19 11:59 98 F 87 22 H 171/118 H 95 Inital Vital Signs reviewed: Yes General: Well nourished, Well developed Head: Normocephalic, Atraumatic Eyes: Perrl, EOMI ENT: TM's clear Neck: Supple, Nontender Cardiovascular: Regular rate, No murmurs, Irregular Respiratory: No distress, Rhonchi, Decreased Air Movement, - - Dry cough on exam Abdomen: Soft, Nontender, Nondistended, Normal bowel sounds Back: Nontender, Normal Inspection Extremities: Nontender, Edema - 2+ pretibial pedal edema Skin: Normal color, No rash Neurological: Alert, Oriented x3, Cranial nerves II-XII grossly intact, Normal Strength, Normal Sensation Psychological: Normal affect Diagnostic/Tx/Re-eval Chest X-Ray - ED: 2 View, Read by ED Physician, Read by Radiologist, No Acute Disease Clinical Impression(s) from Imaging Studies Chest X-Ray 10/12/19 13:50 IMPRESSION: No acute thoracic pathology. Electronically Signed: Jasiel Medina, at 14:25 EST Tel , Service support , Laboratory Data 10/12/19 10/12/19 10/12/19 12:50 12:50 12:50 WBC 10.6 RBC 4.33 Hgb 11.8 L Hct 36.4 L MCV 84.1 MCH 27.3 MCHC 32.4 RDW Std Deviation 43.4 RDW Coeff of Berenice 14.0 Plt Count 276 MPV 9.5 Immature Gran % (Auto) 0.600 Neut % (Auto) 78.6 H Lymph % (Auto) 8.0 L [place] % (Auto) 8.3 Eos % (Auto) 3.9 Baso % (Auto) 0.6 Absolute Neuts (auto) 8.3 H Absolute Lymphs (auto) 0.85 Nucleated RBC % 0 Sodium 142 Potassium 3.4 L Chloride 106 Carbon Dioxide 30.0 Anion Gap 6 BUN 10 Creatinine 0.68 Estim Creat Clear Calc 31.69 Est GFR (MDRD) Af Amer 107 Est GFR (MDRD) Non-Af 88 BUN/Creatinine Ratio 14.7 Glucose 142 H Calcium 8.9 Troponin I < 0.015 B-Natriuretic Peptide 390.3 H - Rhythm Strip Rhythm Strip: Sinus Rhythm Rate: 84 Ectopy: PVC(s) - EKG Initial EKG Interpretation: Sinus Rhythm, Sinus Arrythmia, - - rate of 84 normal PVC present Normal axis Normal intervals Normal ST segments Prior: Changed - 10/13/14-patient's NE interval is normalized and PVCs now present O2 Sat with ambulation (%): 94 Re-Evaluation and Other Treatments: Patient is given a DuoNeb. On reevaluation she has improved lung sounds and improved aeration. - Medical Decision Making Patient is evaluated for cough and shortness of breath. She also developed orthopnea last night. She appears nontoxic in no acute distress patient does have some increased work of breathing. Patient has a normal white blood cell count. proBNP is mildly elevated however patient does have history of atrial fibrillation and Lasix. She does not have pleural effusion or intravascular congestion on her chest x-ray. Patient does not report any increased swelling of her lower extremities on her DVT. Do not think she is a CHF exacerbation. Patient is given a DuoNeb and has improvement of her respirations as well as her cough. Likely this is a viral bronchitis. She will be treated with cough syrup as well as an albuterol inhaler. Patient is instructed to call her PCP for follow-up later in the week. Patient is counseled on signs and symptoms requiring return to the emergency room. Patient verbalizes agreement and understand this plan. Patient discharged home in stable and improved condition. ED Disposition - Plan for ED Patient: Disposition: Home or Assisted Living Diagnosis: Viral bronchitis Instructions: BRONCHITIS with Wheezing (Adult) Prescriptions: Guaifenesin/Codeine [Robitussin AC] 5 ml PO Q6H PRN PRN #100 udc PRN Reason: Cough Prescription Printed Referrals: Freddie Arauz MD [Primary Care Provider] - Additional Instructions: Call your PCP for follow-up later in the week. Use inhaler every 4-6 hours as needed for cough or wheezing. Return to emergency room if you develop worsening symptoms. It is possible to make it worse before you get better.
[2019-10-12 13:03] LABS: Absolute Lymphocyte Count 0.85 X10^3/uL (0.83-4.51); Absolute Neutrophil Count 8.3 X10^3/uL (2.0-7.7); Basophil# 0.06 X10^3/uL; Basophil% 0.6 % (0-1); Eosinophil# 0.41 X10^3/uL; Eosinophils% 3.9 % (0-5); Hematocrit 36.4 % (37-47); Hemoglobin 11.8 g/dL (12.0-15.0); Lymphocyte # 0.85 X10^3/ul (4.0); Mean Corp Hgb Conc 32.4 g/dL (32-36); Mean Corpuscular Hgb 27.3 pg (27.0-32.0); Mean Corpuscular Volume 84.1 fL (81-99); Mean Platelet Vol. 9.5 fl (6.2-12.0); Monocyte# 0.88 X10^3/uL; Monocyte% 8.3 % (0-10); NRBC Flagged by Analyzer 0 % (0-5); Neutrophil # 8.32 X10^3/uL (2.7-7.7); Neutrophil % 78.6 % (47-70); Platelet Count 276 K/mm3 (150-450); RBC Distribution Width SD 43.4 fl (35.1-43.9); Red Blood Count 4.33 M/mm3 (4.2-5.4); White Blood Count 10.6 K/mm3 (4.4-11.0)
[2019-10-12] MEDS: Ipratropium/Albuterol Sulfate 3 ML AMPUL.NEB INHALATION (13:16)
[2019-10-12 13:17] LABS: Anion Gap 6 (5-15); BUN 10 mg/dL (7-18); BUN/Creat Ratio 14.7 RATIO (10-20); Calcium,Total 8.9 mg/dL (8.5-10.1); Chloride 106 mmol/L (98-107); Creatinine, Serum 0.68 mg/dL (0.55-1.02); EST Glomerular Filtration Rate 88 mL/min (>60); Est Glom Filt Rate - Afr Amer 107 mL/min (>60); Estimated Creatinine Clearance 31.69 ml/min; Glucose 142 mg/dL (74-106); Potassium 3.4 mmol/L (3.5-5.1); Sodium Level 142 mmol/L (136-145)
[2019-10-12 13:18] VITALS: PULSE 86; RESP 24
[2019-10-12 13:22] VITALS: PULSE 87; RESP 17; O2SAT 88; O2SAT 98
[2019-10-12 13:31] LABS: BNP,B-Type NATRIURETIC PEPTIDE 390.3 pg/mL (0-100)
--- NOTE | 2019-10-12 13:50 | RAD_ITS ---
STUDY: X-RAY CHEST REASON FOR EXAM: Female, 79 years old. Cough. Shortness of breath. TECHNIQUE: Frontal and lateral views of the chest COMPARISON: 11/07/2016. FINDINGS: The lungs are clear. There are no pleural effusions. There is no pneumothorax. The heart is normal in size. The visualized osseous structures are within normal limits. RAD/Chest PA and Lateral IMPRESSION: No acute thoracic pathology. Electronically Signed: Jasiel Medina, at 14:25 EST Tel , Service support ,
[2019-10-12 15:01] VITALS: RESP 18
[2019-10-12 15:24] VITALS: BP 178/90; PULSE 89; RESP 16; O2SAT 92
--- NOTE | 2019-10-12 15:24 | ED.RN ---
IV DC'ED, CATHETER INTACT, SMALL GAUZE DRESSING PLACED. DISCHARGE INSTRUCTIONS GIVEN TO AND REVIEWED WITH PATIENT, PATIENT DENIES QUESTIONS OR CONCERNS AND VOICES UNDERSTANDING OF DISCHARGE INSTRUCTIONS. PT AMBULATES OUT OF ROOM WITH STEADY GAIT.
--- NOTE | 2019-10-12 15:38 | ED.RN ---
PT TO PRIVATE VEHICLE VIA WHEELCHAIR.
== END 2019-10-12 15:38 | disposition home or self-care (01) ==
PROVIDERS: Emergency Provider Emergency Medicine; Family Provider Family Medicine; PCP Family Medicine
DX: J20.8 Acute bronchitis due to other specified organisms (principal); I10 Essential (primary) hypertension
CPT/HCPCS: 71046; 80048; 83880; 84484; 85025; 87804; 93005; 94640; 99285

== ENCOUNTER → 2020-03-26 11:24 | Outpatient (CLI) | payer MEDICARE, SELFPAY ==
[2020-03-26 11:28] LABS: Mucous, Urine 0 SEEN /hpf (<or=2+); Red Blood Cells-Urine 0 SEEN /hpf (0-5)
[2020-03-26 15:21] LABS: Absolute Lymphocyte Count 0.94 X10^3/uL (0.83-4.51); Absolute Neutrophil Count 5.4 X10^3/uL (2.0-7.7); Basophil# 0.02 X10^3/uL; Basophil% 0.3 % (0-1); Eosinophil# 0.24 X10^3/uL; Eosinophils% 3.3 % (0-5); Hematocrit 35.7 % (37-47); Hemoglobin 11.3 g/dL (12.0-15.0); Lymphocyte # 0.94 X10^3/ul (4.0); Lymphocyte % 12.9 % (19-41); Mean Corp Hgb Conc 31.7 g/dL (32-36); Mean Corpuscular Hgb 27.9 pg (27.0-32.0); Mean Corpuscular Volume 88.1 fL (81-99); Mean Platelet Vol. 10.2 fl (6.2-12.0); Monocyte# 0.62 X10^3/uL; Monocyte% 8.5 % (0-10); NRBC Flagged by Analyzer 0 % (0-5); Neutrophil # 5.43 X10^3/uL (2.7-7.7); Neutrophil % 74.6 % (47-70); Platelet Count 262 K/mm3 (150-450); RBC Distribution Width CV 13.5 % (11.6-14.6); RBC Distribution Width SD 43.3 fl (35.1-43.9); Red Blood Count 4.05 M/mm3 (4.2-5.4); White Blood Count 7.3 K/mm3 (4.4-11.0)
[2020-03-26 15:30] LABS: Color, Urine Yellow (Yellow); Glucose, Dipstick Normal (Normal); Ketone-Dipstick 5 mg/dl (Negative); Leukocyte Esterase-Dipstick 500 /ul (Negative); Nitrite-Dipstick Positive (Negative); Occult Blood-Urine 50 /ul (Negative); Protein-Dipstick 30 mg/dl (Negative); Specific Gravity, Urine 1.015 (1.002-1.030); Urine Bilirubin Dipstick Negative (Negative); Urine Clarity Cloudy (Clear); Urine Urobilinogen Normal (Normal)
[2020-03-26 15:41] LABS: Bacteria 2+ /hpf (None Seen); White Blood Cells >100 SEEN /hpf (0-5)
[2020-03-26 15:42] LABS: Squamous Epithelial Cells - UA 0-5 SEEN /hpf (5-10)
[2020-03-26 15:50] LABS: ALB/GLOB Ratio 1.2 RATIO (0.9-2.4); AST(SGOT) 24 U/L (15-37); Alanine Aminotransfer ALT/SGPT 23 U/L (13-56); Albumin, Serum 3.8 g/dL (3.2-5.0); Alkaline Phosphatase 61 U/L (45-117); Anion Gap 7 (5-15); BUN 14 mg/dL (7-18); BUN/Creat Ratio 19.4 RATIO (10-20); Calcium,Total 9.1 mg/dL (8.5-10.1); Chloride 105 mmol/L (98-107); Cholesterol 143 mg/dL (200); Creatinine, Serum 0.72 mg/dL (0.55-1.02); EST Glomerular Filtration Rate 82 mL/min (>60); Est Glom Filt Rate - Afr Amer 100 mL/min (>60); Globulin 3.1 g/dL (2.2-4.2); Glucose 119 mg/dL (74-106); High Density Lipoprotein 53 mg/dL; Magnesium 1.9 mg/dL (1.6-2.6); Potassium 4.1 mmol/L (3.5-5.1); Protein, Total 6.9 g/dL (6.4-8.2); Sodium Level 141 mmol/L (136-145); Triglycerides 192 mg/dL; Very Low Density Lipoprotein 38 mg/dL (5-40)
[2020-03-26 15:51] LABS: Hemoglobin A1c 6.3 % (3.8-5.6)
[2020-03-26 15:59] LABS: Vitamin D,25 Hydroxy 34.2 ng/mL
[2020-03-26 16:17] LABS: Microalbumin:Creatinine Ratio 112.6 mg/g CRE (<30 mg/g CRE); Protein, Urine (Random) 43.6 mg/dL (<11.9); Protein:Creat Ratio 323 mg/g CRE (0-200)
== END ==
PROVIDERS: PCP Family Medicine; Referring Provider Family Medicine; Visit Provider Family Medicine
DX: D64.9 Anemia, unspecified (principal); E11.22 Type 2 diabetes mellitus with diabetic chronic kidney disease; I11.0 Hypertensive heart disease with heart failure; N18.3 Chronic kidney disease, stage 3 (moderate); E78.5 Hyperlipidemia, unspecified; I48.0 Paroxysmal atrial fibrillation; R53.83 Other fatigue
CPT/HCPCS: 36415; 80053; 80061; 81001; 82043; 82306; 82570; 83036; 83735; 84156; 85025

== ENCOUNTER → 2020-06-22 | Outpatient (CLI) | payer MEDICARE, SELFPAY | END | disposition home or self-care (01) | LOC: PSN 11:18 | PROVIDERS: PCP Family Medicine; Referring Provider Physician Assistant Medical; Visit Provider Physician Assistant Medical | DX: I48.0 Paroxysmal atrial fibrillation (principal); R00.0 Tachycardia, unspecified | CPT/HCPCS: 93225; 93226 ==

== ENCOUNTER → 2020-07-28 14:54 | Outpatient (CLI) | payer MEDICARE, SELFPAY ==
--- NOTE | 2020-07-28 14:57 | VDLE_ITS ---
Reason For Study: Leg swelling RIGHT GSV is normal. CFV is compressible, spontaneous, phasic, competent and demonstrates normal augmentation. FV is compressible, spontaneous, phasic, competent and demonstrates normal augmentation. POP V is compressible, spontaneous, phasic, competent and demonstrates normal augmentation. T/P Trunk is compressible. PTV is compressible. RT PerV is compressible. Procedure Exam performed in department. A preliminary report was called and/or faxed to [facility]. Interpretation Summary Deep veins of the right lower extremity are patent and compressible segmentally. There is no evidence of right lower extremity deep vein thrombosis. Valvular competence appears intact within the proximal deep venous system on the right . The right great saphenous vein appears patent and compressible segmentally. Ordering Physician: Elzbieta Lane Referring Physician: Freddie Arauz Performed By: Pennie Tuttle RVT
== END ==
PROVIDERS: PCP Family Medicine; Referring Provider Family Medicine; Visit Provider Family Medicine
DX: M79.89 Other specified soft tissue disorders (principal)
CPT/HCPCS: 93971

== ENCOUNTER → 2020-09-03 12:49 | Outpatient (CLI) | payer MEDICARE, SELFPAY ==
[2020-09-03 15:32] LABS: Absolute Lymphocyte Count 1.39 X10^3/uL (0.83-4.51); Absolute Neutrophil Count 5.2 X10^3/uL (2.0-7.7); Basophil# 0.03 X10^3/uL; Basophil% 0.4 % (0-1); Eosinophil# 0.37 X10^3/uL; Eosinophils% 4.7 % (0-5); Hematocrit 37.5 % (37-47); Hemoglobin 11.5 g/dL (12.0-15.0); Lymphocyte # 1.39 X10^3/ul (4.0); Lymphocyte % 17.8 % (19-41); Mean Corp Hgb Conc 30.7 g/dL (32-36); Mean Corpuscular Hgb 27.8 pg (27.0-32.0); Mean Corpuscular Volume 90.6 fL (81-99); Mean Platelet Vol. 10.1 fl (6.2-12.0); Monocyte# 0.72 X10^3/uL; Monocyte% 9.2 % (0-10); NRBC Flagged by Analyzer 0 % (0-5); Neutrophil # 5.24 X10^3/uL (2.7-7.7); Neutrophil % 67.4 % (47-70); Platelet Count 330 K/mm3 (150-450); RBC Distribution Width CV 14.5 % (11.6-14.6); Red Blood Count 4.14 M/mm3 (4.2-5.4); White Blood Count 7.8 K/mm3 (4.4-11.0)
[2020-09-03 16:04] LABS: Microalbumin:Creatinine Ratio 89.9 mg/g CRE (<30 mg/g CRE)
[2020-09-03 16:28] LABS: AST(SGOT) 24 U/L (15-37); Alanine Aminotransfer ALT/SGPT 21 U/L (13-56); Albumin, Serum 3.9 g/dL (3.2-5.0); Alkaline Phosphatase 71 U/L (45-117); Anion Gap 6 (5-15); BUN 17 mg/dL (7-18); BUN/Creat Ratio 14.2 RATIO (10-20); Calcium,Total 9.6 mg/dL (8.5-10.1); Chloride 103 mmol/L (98-107); Cholesterol 157 mg/dL (200); EST Glomerular Filtration Rate 46 mL/min (>60); Est Glom Filt Rate - Afr Amer 55 mL/min (>60); Globulin 3.8 g/dL (2.2-4.2); Glucose 121 mg/dL (74-106); High Density Lipoprotein 54 mg/dL; Magnesium 2.1 mg/dL (1.6-2.6); Potassium 4.2 mmol/L (3.5-5.1); Protein, Total 7.7 g/dL (6.4-8.2); Sodium Level 138 mmol/L (136-145); Triglycerides 301 mg/dL; Very Low Density Lipoprotein 60 mg/dL (5-40)
[2020-09-03 16:29] LABS: Hemoglobin A1c 6.2 % (3.8-5.6)
[2020-09-03 16:30] LABS: Cholesterol 163 mg/dL (200); High Density Lipoprotein 56 mg/dL; Triglycerides 307 mg/dL; Very Low Density Lipoprotein 61 mg/dL (5-40)
[2020-09-03 20:13] LABS: AST(SGOT) 26 U/L (15-37); Alanine Aminotransfer ALT/SGPT 20 U/L (13-56); Albumin, Serum 3.9 g/dL (3.2-5.0); Alkaline Phosphatase 70 U/L (45-117); Bilirubin, Direct 0.15 mg/dL (0.00-0.30); Globulin 3.7 g/dL (2.2-4.2); Protein, Total 7.6 g/dL (6.4-8.2); Thyroid Stim Hormone (TSH) 3.73 uIU/mL (0.358-3.74)
== END ==
PROVIDERS: Physician Assistant Medical; PCP Family Medicine; Referring Provider Internal Medicine Cardiovascular Disease; Visit Provider Internal Medicine Cardiovascular Disease
DX: I10 Essential (primary) hypertension (principal); E11.9 Type 2 diabetes mellitus without complications; E78.5 Hyperlipidemia, unspecified; I48.0 Paroxysmal atrial fibrillation; R80.9 Proteinuria, unspecified; R00.0 Tachycardia, unspecified
CPT/HCPCS: 36415; 80048; 80053; 80061; 80076; 82043; 82570; 83036; 83735; 84443; 85025

== ENCOUNTER 2020-10-15 20:59 | Inpatient (IN) | payer MEDICARE, SELFPAY ==
[2020-09-15 10:57] VITALS: BMI 41.1
[2020-10-15 21:01] VITALS: BP 147/115; PULSE 148; RESP 18; TEMP 35.9; O2SAT 99; BMI 46.2
--- NOTE | 2020-10-15 21:15 | EKG12_ITS ---
Test Reason : TACHYCARDIA Blood Pressure : / mmHG Vent. Rate : 095 BPM Atrial Rate : 120 BPM P-R Int : 000 ms QRS Dur : 070 ms QT Int : 274 ms P-R-T Axes : 000 005 207 degrees QTc Int : 344 ms Atrial fibrillation with premature ventricular or aberrantly conducted complexes Low voltage QRS Nonspecific T wave abnormality Abnormal ECG Confirmed by NAVEEN NELSON, EMORY ([id number]), loan expeditor MICHELLE JOHNSON ([id number]) on 10/20/2020 9:23:54 AM Referred By: IVAN Confirmed By:EMORY HODGE MD
--- NOTE | 2020-10-15 21:16 | ED.DCSUM_ITS ---
History of Present Illness Chief Complaint: Edema Informant: Patient Onset: Days - 1 week Context: Gradual Onset Current Severity: Moderate Maximum Severity: Moderate Narrative: Patient presents secondary to filling up with fluid. She states symptoms have been ongoing for 1 week and she feels more swollen as well as short of breath. She states typically she walks with a cane but has been using her walker due to increased dyspnea with exertion. She denies chest pain. She is currently on Lasix and still urinates well when she takes this. She does have a history of paroxysmal A. fib and a flutter. She is on metoprolol and sotalol for rate control. She is currently on Pradaxa as an anticoagulant. - Past Medical History (1) Paroxysmal atrial flutter Status: Chronic (2) Essential hypertension Status: Chronic (3) Paroxysmal atrial fibrillation Status: Chronic (4) Pure hypercholesterolemia Status: Chronic (5) Type 2 diabetes mellitus Status: Chronic Past Medical History - Allergies and Home Meds Allergies/Adverse Reactions: Allergies No Known Allergies Allergy (Verified 10/15/20 21:01) Primary Care Physician: Freddie Arauz MD [Primary Care Provider] - Prior records reviewed: Yes Surgical History: cholecystectomy, hysterectomy, tonsillectomy Smoking Status: Former smoker Review of Systems General: Denies: Chills, Fever Eyes: Denies: Visual changes - bilaterally ENT: Denies: Bilateral ear pain Cardiovascular: Denies: Chest pain Respiratory: Reports: Dyspnea, Cough - Mild cough Gastrointestinal: Denies: Abdominal pain, Vomiting, Diarrhea Musculoskeletal: Reports: Swelling Skin: Denies: Rash Neurological: Denies: Headache Hematologic: Denies: Easy bruising, Easy bleeding Allergy: Denies: Uticaria Physical Exam Vital Signs/Narrative: Vital Signs Temp Pulse Resp BP Pulse Ox 10/15/20 21:01 96.6 F L 148 H 18 147/115 H 99 Inital Vital Signs reviewed: Yes General: Well nourished, Well developed Head: Normocephalic ENT: Moist mucous membranes Neck: Supple Cardiovascular: Irregular, Tachycardia Respiratory: No distress, Diminished - Diminished bilateral bases Abdomen: Soft, Nontender Extremities: - - 3+ edema bilateral lower extremities Neurological: Alert, Oriented x3 Psychological: Normal affect Diagnostic/Tx/Re-eval Impressions Chest X-Ray 10/15/20 21:45 IMPRESSION: No acute cardiopulmonary disease perceived. at 2233 Reported and signed by: Pk Newton MD Electronically Signed: Pk Newton MD at 22:32 EST Tel , Service support , 10/15/20 21:45 Chest 1 View (Portable) [RAD] Stat Laboratory Results 10/15/20 10/15/20 10/15/20 21:21 21:21 21:21 WBC 9.3 RBC 4.15 L Hgb 11.7 L Hct 36.7 L MCV 88.4 MCH 28.2 MCHC 31.9 L RDW Std Deviation 46.5 H RDW Coeff of Berenice 14.6 Plt Count 325 MPV 10.4 Immature Gran % (Auto) 0.400 Neut % (Auto) 72.5 H Lymph % (Auto) 14.8 L [place] % (Auto) 8.1 Eos % (Auto) 3.8 Baso % (Auto) 0.4 Absolute Neuts (auto) 6.7 Absolute Lymphs (auto) 1.37 Nucleated RBC % 0 Sodium 141 Potassium 4.3 Chloride 104 Carbon Dioxide 29.0 Anion Gap 8 BUN 25 H Creatinine 1.12 H Estim Creat Clear Calc 27.82 Est GFR (MDRD) Af Amer 60 Est GFR (MDRD) Non-Af 49 L BUN/Creatinine Ratio 22.3 H Glucose 142 H Calcium 10.2 H Troponin I < 0.015 B-Natriuretic Peptide 365.5 H - EKG Initial EKG Interpretation: Atrial Fibrillation - A. fib RVR at 149. Mild ST depression in lead V3. Follow-up EKG Interpretation: Atrial Fibrillation - A. fib at 95. Previously seen ST depression is improved. - Medical Decision Making Patient was initially given 2 mg of metoprolol, 5 mg each. Heart rate only improved into the 130s. She was given 10 mg of IV Cardizem. At this time heart rate is 100 but she does remain in A. fib. BNP is slightly elevated in the 350 range. She will be given 40 mg of IV Lasix. I believe she likely developed CHF secondary to her rapid heart rate ongoing for the past several days. If we can control her heart rate better I believe these symptoms will improve quickly. I will speak with the hospitalist. ED Disposition - Plan for ED Patient: Disposition: Acute Care Hospital [facility] Diagnosis: Atrial fibrillation with RVR, CHF (congestive heart failure) Referrals: Freddie Arauz MD [Primary Care Provider] -
[2020-10-15 21:32] LABS: Absolute Lymphocyte Count 1.37 X10^3/uL (0.83-4.51); Absolute Neutrophil Count 6.7 X10^3/uL (2.0-7.7); Basophil# 0.04 X10^3/uL; Basophil% 0.4 % (0-1); Eosinophil# 0.35 X10^3/uL; Eosinophils% 3.8 % (0-5); Hematocrit 36.7 % (37-47); Hemoglobin 11.7 g/dL (12.0-15.0); Lymphocyte # 1.37 X10^3/ul (4.0); Lymphocyte % 14.8 % (19-41); Mean Corp Hgb Conc 31.9 g/dL (32-36); Mean Corpuscular Hgb 28.2 pg (27.0-32.0); Mean Corpuscular Volume 88.4 fL (81-99); Mean Platelet Vol. 10.4 fl (6.2-12.0); Monocyte# 0.75 X10^3/uL; Monocyte% 8.1 % (0-10); NRBC Flagged by Analyzer 0 % (0-5); Neutrophil # 6.73 X10^3/uL (2.7-7.7); Neutrophil % 72.5 % (47-70); Platelet Count 325 K/mm3 (150-450); RBC Distribution Width CV 14.6 % (11.6-14.6); RBC Distribution Width SD 46.5 fl (35.1-43.9); Red Blood Count 4.15 M/mm3 (4.2-5.4); White Blood Count 9.3 K/mm3 (4.4-11.0)
[2020-10-15] MEDS: Metoprolol Tartrate 5 MG/5 ML Vial IV ×2 (21:33→22:03)
--- NOTE | 2020-10-15 21:45 | RAD_ITS ---
HISTORY: GENERALIZED EDEMA, MORE TO LEGS, C/O SOB FROM WATER RETENTION EXAM: XR Chest 1 View: COMPARISON: October 12, 2019, almost exactly one year earlier Calcific plaque in the aortic arch persists FINDINGS: # of images incl. paperwork: 1 Lungs are clear. Heart is not enlarged. Thoracic spondylosis with a slight levoscoliosis in the thoracic spine and dextroscoliosis at thoracolumbar junction is unchanged Pulmonary vascularity is distinct. No effusions. RAD/Chest 1 View (Portable) IMPRESSION: No acute cardiopulmonary disease perceived. at 2233 Reported and signed by: Pk Newton MD Electronically Signed: Pk Newton MD at 22:32 EST Tel , Service support ,
[2020-10-15 21:47] LABS: BNP,B-Type NATRIURETIC PEPTIDE 365.5 pg/mL (0-100)
[2020-10-15 21:50] LABS: Anion Gap 8 (5-15); BUN 25 mg/dL (7-18); BUN/Creat Ratio 22.3 RATIO (10-20); Calcium,Total 10.2 mg/dL (8.5-10.1); Chloride 104 mmol/L (98-107); Creatinine, Serum 1.12 mg/dL (0.55-1.02); EST Glomerular Filtration Rate 49 mL/min (>60); Est Glom Filt Rate - Afr Amer 60 mL/min (>60); Estimated Creatinine Clearance 27.82 ml/min; Glucose 142 mg/dL (74-106); Potassium 4.3 mmol/L (3.5-5.1); Sodium Level 141 mmol/L (136-145)
[2020-10-15 22:03] VITALS: BP 127/100; PULSE 152; RESP 22; O2SAT 94
[2020-10-15] MEDS: dilTIAZem 25 MG/5 ML Vial 10 MG IV BOLUS (22:53)
[2020-10-15 22:55] VITALS: BP 137/99; PULSE 138; RESP 18; O2SAT 96
--- NOTE | 2020-10-15 23:29 | EKG12_ITS ---
Test Reason : TACHYCARDIA Blood Pressure : / mmHG Vent. Rate : 149 BPM Atrial Rate : 147 BPM P-R Int : 000 ms QRS Dur : 064 ms QT Int : 238 ms P-R-T Axes : 000 005 196 degrees QTc Int : 374 ms Atrial fibrillation Low voltage QRS Nonspecific ST and T wave abnormality Abnormal ECG Confirmed by NAVEEN NELSON, EMORY ([id number]), news copy editor MICHELLE JOHNSON ([id number]) on 10/20/2020 9:24:06 AM Referred By: IVAN Confirmed By:EMORY HODGE MD
[2020-10-15 23:38] VITALS: BP 145/85; PULSE 103; RESP 16; O2SAT 96
--- NOTE | 2020-10-15 23:54 | HP.PCM_ITS ---
Problem List (1) Atrial fibrillation with RVR Status: Acute (2) CHF (congestive heart failure) Status: Acute (3) Pure hypercholesterolemia Status: Chronic (4) Type 2 diabetes mellitus Status: Chronic (5) Paroxysmal atrial flutter Status: Chronic (6) Bilateral leg edema Status: Chronic (7) Dyspnea on exertion Status: Acute (8) Essential hypertension Status: Chronic (9) Paroxysmal atrial fibrillation Status: Chronic History of Present Illness Date of Admission: 10/15/20 Chief Complaint: Leg swelling The patient is a 80 year old F with a significant history of atrial fibrillation with rapid ventricular response; history of cardioversion; and type 2 diabetes who presents to the emergency department with 1 week history of left leg swelling. Also she reports chronic swelling of her right leg. Associated with her symptoms is dyspnea on exertion. She uses 1 pillow to sleep and that has not changed. She denies paroxysmal nocturnal dyspnea. She has palpitations. Past Medical History Past Medical History (Chronic Problems): Chronic Problems (Last Reviewed 10/16/20 @ 00:[address] Frank Del Rosario MD) Pure hypercholesterolemia (Chronic) Type 2 diabetes mellitus (Chronic) Paroxysmal atrial flutter (Chronic) Bilateral leg edema (Chronic) Essential hypertension (Chronic) Paroxysmal atrial fibrillation (Chronic) Medical History: Medical History (Last Reviewed 10/16/20 @ 01:[address] 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 History of cardioversion Z98.890 10/13/2014 Atrial flutter (Inactive) I48.92 Allergies No Known Allergies Allergy (Verified 10/15/20 21:01) Home Medications: Ambulatory Orders Medication Instructions Recorded Aspirin [Aspirin, Baby] 81 mg PO DAILY@0800 10/12/14 Calcium Carb/Vitamin D 1 tab PO BID 10/12/14 [Caltrate-600 With Vit D Tab] Multivitamins,Therapeutic 1 tab PO DAILY 10/12/14 [Multivitamin] metformin 500 mg tablet 500 mg PO BID tab 11/21/17 ascorbic acid (vitamin C) 500 mg 500 mg PO QDAY cap 03/29/18 capsule gabapentin 600 mg tablet 600 mg PO TID 03/29/18 lidocaine 5 % topical patch 1 patch TOPICAL DAILY 03/29/18 atorvastatin 20 mg tablet 20 mg PO QHS #90 tab 01/12/20 dabigatran etexilate 150 mg capsule 150 mg PO BID #180 cap 01/12/20 furosemide 40 mg tablet 40 mg PO BID #180 tab 01/12/20 lisinopril 20 mg tablet 20 mg PO BID #180 tab 01/12/20 magnesium oxide 400 mg (241.3 mg 400 mg PO QDAY #90 tab 01/12/20 magnesium) tablet sotalol 80 mg tablet 120 mg PO BID #270 tab 01/12/20 metoprolol tartrate 25 mg tablet 25 mg PO BID #60 tab 10/05/20 Nystatin/Triamcin 1 applic TOPICAL BID 10/15/20 [Nystatin-Triamcinolone Ointm] Nystatin Powder [Mycostatin Powder] 1 applicatio TOPICAL QODAY PRN 10/16/20 Surgical History: Surgical History (Last Reviewed 10/16/20 @ 01:[address] Frank Del Rosario MD) History of appendectomy Z90.49 1956 History of cholecystectomy Z90.49 1956 History of colon resection Onset Date: ~2011 Z90.49 secondary to diverticulitis- 2011 History of hysterectomy Z90.710 2003 History of tonsillectomy Z90.89 Hx of appendectomy (Inactive) Z90.49 1956 Surgical History: cholecystectomy, hysterectomy, tonsillectomy Smoking Status: Former smoker - *Family History Maternal Family History: Family History (Last Reviewed 10/16/20 @ 01:[address] Frank Del Rosario MD) Father CAD (coronary artery disease) Mother Hypertension CVA (cerebral vascular accident) Review of Systems Constitutional: Denies: Chills, Fever, Weight Change HEENT: Denies: Head Aches, Sinus Congestion, Sinus Drainage Cardiovascular: Reports: Edema, Palpitations. Denies: Chest Pain Respiratory: Reports: Shortness of breath upon exertion. Denies: Cough, Shortness of breath at rest, Sputum production Gastrointestinal: Denies: Abdominal Pain, Nausea, Vomiting Genitourinary: Denies: Dysuria Musculoskeletal: Denies: Joint Pain, Joint Tenderness Skin: Denies: Rash, Wounds Neurological: Denies: Numbness, Tingling, Focal weakness Psychiatric: Denies: Anxiety, Depression, Homicidal Ideations, Suicidal Ideations Hematologic/ Lymphatic: Denies: Easy Bruising, Easy Bleeding VTE Information - Inpt Only VTE Present on Admission: No VTE Mechan Device Prophylaxis: None VTE Pharm Prophylaxis ordered?: No Reason prophylaxis not ordered:: Treatment Not Indicated - Home Pradaxa continued Patient Problems: Active and Suspected Problems (Last Reviewed 10/16/20 @ 00:[address] Frank Del Rosario MD) Atrial fibrillation with RVR (Acute) CHF (congestive heart failure) (Acute) Dyspnea on exertion (Acute) - Physical Exam Vitals/I&O's: Vital Signs Temp Pulse Resp BP Pulse Ox 96.6 F L 103 H 16 145/85 H 96 10/15/20 21:01 10/15/20 23:38 10/15/20 23:38 10/15/20 23:38 10/15/20 23:38 Oxygen Delivery Method Room Air Weight: 107.4 kg Body Mass Index (BMI) 46.2 General: Alert, Oriented x3, Cooperative HEENT: Atraumatic, PERRLA, EOMI, Normocephalic Neck: Supple, Trachea Midline Lungs: Clear to auscultation, Normal air movement, Diminished Cardiovascular: Normal S1, Normal S2, No murmurs, Irregular Rate, Tachycardic Abdomen: Bowel Sounds Present, Soft, Non Tender Extremities: Capillary Refill Less than 3 Seconds, Edema - Bilateral pitting edema 3-4+ Skin: No rashes, No breakdown Musculoskeletal: No Tenderness to Palpation of Joints or Extremities Neurological: Cranial nerves II-XII grossly intact Psych/Mental Status: Normal Affect, Appropriate Laboratory Results 10/15/20 21:21: WBC 9.3, RBC 4.15 L, Hgb 11.7 L, Hct 36.7 L, MCV 88.4, MCH 28.2, MCHC 31.9 L, RDW Std Deviation 46.5 H, RDW Coeff of Berenice 14.6, Plt Count 325, MPV 10.4, Immature Gran % (Auto) 0.400, Neut % (Auto) 72.5 H, Lymph % (Auto) 14.8 L, [place] % (Auto) 8.1, Eos % (Auto) 3.8, Baso % (Auto) 0.4, Absolute Neuts (auto) 6.7, Absolute Lymphs (auto) 1.37, Nucleated RBC % 0 10/15/20 21:21: Sodium 141, Potassium 4.3, Chloride 104, Carbon Dioxide 29.0, Anion Gap 8, BUN 25 H, Creatinine 1.12 H, Estim Creat Clear Calc 27.82, Est GFR (MDRD) Af Amer 60, Est GFR (MDRD) Non-Af 49 L, BUN/Creatinine Ratio 22.3 H, Glucose 142 H, Calcium 10.2 H, Troponin I < 0.015 10/15/20 21:21: B-Natriuretic Peptide 365.5 H Assessment/Plan All Active Problems (Last Reviewed 10/16/20 @ 00:[address] Frank Del Rosario MD) Atrial fibrillation with RVR (Acute) CHF (congestive heart failure) (Acute) Dyspnea on exertion (Acute) Atrial fibrillation with rapid ventricular response (Resolved) Heme + stool (Resolved) A. fib with rapid ventricular response Place on PCU on telemetry Obtain echo Pradaxa continued Patient was give metoprolol 5 mg IV x2 and Cardizem bolus which made a heart rate improved. Initially had ST depression in leads V3. Her ST depression improved when a heart rate was corrected. Patient had not taking her home metoprolol. At home she takes 25 mg twice daily. Discussed emergent department to give patients 50 mg of metoprolol p.o. Toprol 50 mg twice daily ordered. Metoprolol IV as needed every 1 hour x 3 for heart rate of more than 110. Continue home sotalol. Patient follow-up with Dr. Mckeon. Consider cardiology consult. Potassium level is normal. Check magnesium level and TSH. Acute exacerbation of heart failure with preserved ejection fraction Echocardiogram on 05/15/17 showed ejection fraction of 60% with mild concentric left ventricular hypertrophy. Right ventricular systolic pressure was 44 mmHg. There was mild valvular insufficiencies. Echocardiogram ordered. BNP 365.5. On Lasix 40 mg p.o. twice daily. Received Lasix 40 mg IV at emergency department. Lasix 40 mg IV twice daily ordered. Supplement potassium. Echocardiogram ordered. Elevate bilateral lower extremities. Mariusz wrap to bilateral lower extremities. Daily weights. Fluid restriction. Strict intake and outputs. Cardiac diet. MARICRUZ Creatinine presentation was 1.12. Creatinine on 09/03/2020 was 1.20. Her creatinine on 03/26/2020 was 0.72. Review of records shows creatinine baseline around 0.70. Likely mild MARICRUZ. Avoid nephrotoxins. Hold lisinopril. Trend BMP. Diabetes mellitus with hyperglycemia Patient with mild hyperglycemia presentation hold home Metformin. Accu-Chek QA [facility] with correction scale insulin. Cardiac diet with 1800-calorie restrictions. DVT prophylaxis Not indicated since patient is Pradaxa. Pradaxa continued Inpatient E&M: 94101 Init Hosp L3
[2020-10-16] VITALS (22 sets, daily range): BP systolic 107–143; BP diastolic 56–100; PULSE 79–141; RESP 14–20; TEMP 36.6–37.2; O2SAT 93–100; BMI 46.0; BMI 46.1
[2020-10-16] MEDS: Furosemide 40 MG/4 ML Vial IV ×3 (00:06→17:05)
[2020-10-16] MEDS: Metoprolol Tartrate 25 MG Tablet 50 MG PO (00:16)
--- NOTE | 2020-10-16 00:37 | PCS.PANDOC ---
PANDEMIC DOCUMENTATION INITIATED: Date: 10/16/2020 Time: 003
[2020-10-16] MEDS: Sotalol Hydrochloride 80 MG Tablet 120 MG PO ×3 (01:21→21:32)
--- NOTE | 2020-10-16 03:35 | NURSING ---
Verbal report given to Lavonne Yanez RN. She will resume care of patient at this time.
[2020-10-16] MEDS: Metoprolol Tartrate 5 MG/5 ML Vial IV ×3 (03:37→05:41)
[2020-10-16] MEDS: 0.9% Saline Lock 10 ML Syringe IV ×3 (03:37→05:42)
[2020-10-16] MEDS: Gabapentin 300 MG Capsule PO ×3 (05:42→21:33)
[2020-10-16 07:06] LABS: Bedside Glucose 117 mg/dL (70-110)
[2020-10-16 07:37] LABS: Absolute Lymphocyte Count 1.29 X10^3/uL (0.83-4.51); Absolute Neutrophil Count 6.2 X10^3/uL (2.0-7.7); Basophil# 0.03 X10^3/uL; Basophil% 0.3 % (0-1); Eosinophils% 3.5 % (0-5); Hematocrit 33.8 % (37-47); Hemoglobin 10.6 g/dL (12.0-15.0); Lymphocyte # 1.29 X10^3/ul (4.0); Lymphocyte % 14.9 % (19-41); Mean Corp Hgb Conc 31.4 g/dL (32-36); Mean Corpuscular Hgb 27.9 pg (27.0-32.0); Mean Corpuscular Volume 88.9 fL (81-99); Mean Platelet Vol. 10.9 fl (6.2-12.0); Monocyte# 0.77 X10^3/uL; Monocyte% 8.9 % (0-10); NRBC Flagged by Analyzer 0 % (0-5); Neutrophil # 6.23 X10^3/uL (2.7-7.7); Neutrophil % 72.1 % (47-70); Platelet Count 261 K/mm3 (150-450); RBC Distribution Width CV 14.5 % (11.6-14.6); RBC Distribution Width SD 46.5 fl (35.1-43.9); White Blood Count 8.7 K/mm3 (4.4-11.0)
[2020-10-16 08:00] LABS: Anion Gap 6 (5-15); BUN 23 mg/dL (7-18); BUN/Creat Ratio 27.4 RATIO (10-20); Calcium,Total 9.5 mg/dL (8.5-10.1); Chloride 106 mmol/L (98-107); Creatinine, Serum 0.84 mg/dL (0.55-1.02); EST Glomerular Filtration Rate 69 mL/min (>60); Est Glom Filt Rate - Afr Amer 84 mL/min (>60); Estimated Creatinine Clearance 37.09 ml/min; Glucose 116 mg/dL (74-106); Magnesium 2.2 mg/dL (1.6-2.6); Potassium 3.6 mmol/L (3.5-5.1); Sodium Level 139 mmol/L (136-145); Thyroid Stim Hormone (TSH) 2.85 uIU/mL (0.358-3.74)
--- NOTE | 2020-10-16 08:37 | CASEMGMT ---
RN CM Assessment. Introduced role of CM to patient in room. Pt is awake, alert and able to participate in assessment. Pt states she lives alone in one story home with finished lower level and chair lift for stairs. Pt is not fully independent, but has assistance at home with private duty aides 2x week, and her niece 1x week. They assist with meals, baths, shopping. Pt also has a cleaning lady every . Currently this is functional for her, but she is considering Assisted Living once COVID-19 pandemic has lessened. -Daughters lives in [place] and [place] and are looking into assisted living in their areas. Patient has not decided if she will look in [place] or with one of her daughters. -Patient is on Pradaxa and was on this @ home. PCP:Dr. Arauz Specialist: Dr. Mckeon, cardiology Insurance: [employer], [employer] insurance helps with cost of aides. Pharmacy [facility]: yes DME: Rollator, Cane, Chair lift to lower level of home. No home oxygen use. HHC: past, does not know agency name SNF: no Patient dc goal: Home DC Plan: anticipate home on discharge. Currently on RA. PT/OT evals pending.
[2020-10-16] MEDS: Aspirin 81 MG TAB.CHEW PO (09:03)
[2020-10-16] MEDS: Multivitamins,Therapeutic Tablet 1 TABLET PO (09:04)
[2020-10-16] MEDS: Calcium Carb/Vitamin D 1 TABLET Tablet PO ×2 (09:05→17:04)
[2020-10-16] MEDS: Ascorbic Acid 500 MG Tablet PO (09:05)
[2020-10-16] MEDS: Magnesium Chloride 64 MG Delay Rel.Tablet 128 MG PO (09:05)
[2020-10-16] MEDS: Metoprolol Tartrate 50 MG Tablet PO (09:06)
[2020-10-16] MEDS: Lidocaine 5% Patch 1 PATCH TOPICAL (09:08)
[2020-10-16] MEDS: Nystatin/Triamcin Cream Tube 1 APPLIC TOPICAL ×2 (09:09→21:36)
[2020-10-16] MEDS: Dabigatran Etexilate Mesylate 150 MG Capsule PO ×2 (11:17→21:32)
[2020-10-16 11:25] LABS: Bedside Glucose 170 mg/dL (70-110)
--- NOTE | 2020-10-16 11:37 | CON.PCM_ITS ---
Reason for Consult Date of Consultation: 10/16/20 History of Present Illness: The patient is a 80 year old F [] Past Medical History Allergies/Adverse Reactions: Allergies No Known Allergies Allergy (Verified 10/15/20 21:01) Home Medications: Ambulatory Orders Medication Instructions Recorded Aspirin [Aspirin, Baby] 81 mg PO DAILY@0800 10/12/14 Calcium Carb/Vitamin D 1 tab PO BID 10/12/14 [Caltrate-600 With Vit D Tab] Multivitamins,Therapeutic 1 tab PO DAILY 10/12/14 [Multivitamin] metformin 500 mg tablet 500 mg PO BID tab 11/21/17 ascorbic acid (vitamin C) 500 mg 500 mg PO QDAY cap 03/29/18 capsule gabapentin 600 mg tablet 600 mg PO TID 03/29/18 lidocaine 5 % topical patch 1 patch TOPICAL DAILY 03/29/18 atorvastatin 20 mg tablet 20 mg PO QHS #90 tab 01/12/20 dabigatran etexilate 150 mg capsule 150 mg PO BID #180 cap 01/12/20 furosemide 40 mg tablet 40 mg PO BID #180 tab 01/12/20 lisinopril 20 mg tablet 20 mg PO BID #180 tab 01/12/20 magnesium oxide 400 mg (241.3 mg 400 mg PO QDAY #90 tab 01/12/20 magnesium) tablet sotalol 80 mg tablet 120 mg PO BID #270 tab 01/12/20 metoprolol tartrate 25 mg tablet 25 mg PO BID #60 tab 10/05/20 Nystatin/Triamcin 1 applic TOPICAL BID 10/15/20 [Nystatin-Triamcinolone Ointm] Nystatin Powder [Mycostatin Powder] 1 applicatio TOPICAL QODAY PRN 10/16/20 Past Medical History (Chronic Problems): Chronic Problems (Last Reviewed 10/16/20 @ 01:[address] Frank Del Rosario MD) Pure hypercholesterolemia (Chronic) Type 2 diabetes mellitus (Chronic) Paroxysmal atrial flutter (Chronic) Bilateral leg edema (Chronic) Essential hypertension (Chronic) Paroxysmal atrial fibrillation (Chronic) Surgical History: cholecystectomy, hysterectomy, tonsillectomy - *Family History Maternal Family History: Family History (Last Reviewed 10/16/20 @ 01:[address] Frank Del Rosario MD) Father CAD (coronary artery disease) Mother Hypertension CVA (cerebral vascular accident) Smoking Status: Never smoker Objective: Vital Signs Temp Pulse Resp BP Pulse Ox 97.8 F 128 H 14 116/60 98 10/16/20 08:59 10/16/20 09:06 10/16/20 08:59 10/16/20 08:59 10/16/20 10:01 Oxygen Delivery Method Room Air Weight: 238 lb 1.588 oz Body Mass Index (BMI) 46.0 Intake and Output for Last 24 Hours 10/14/20 10/15/20 10/16/20 23:59 23:59 23:59 Intake Total Balance 10/15/20 21:21: WBC 9.3, RBC 4.15 L, Hgb 11.7 L, Hct 36.7 L, MCV 88.4, MCH 28.2, MCHC 31.9 L, Plt Count 325, MPV 10.4, Immature Gran % (Auto) 0.400, Neut % (Auto) 72.5 H, Lymph % (Auto) 14.8 L, [place] % (Auto) 8.1, Eos % (Auto) 3.8, Baso % (Auto) 0.4, Absolute Neuts (auto) 6.7, Nucleated RBC % 0 10/15/20 21:21: Sodium 141, Potassium 4.3, Chloride 104, Carbon Dioxide 29.0, Anion Gap 8, BUN 25 H, Creatinine 1.12 H, Est GFR (MDRD) Af Amer 60, Est GFR (MDRD) Non-Af 49 L, BUN/Creatinine Ratio 22.3 H, Glucose 142 H, Calcium 10.2 H, Troponin I < 0.015 10/15/20 21:21: B-Natriuretic Peptide 365.5 H 10/16/20 06:10: WBC 8.7, RBC 3.80 L, Hgb 10.6 L, Hct 33.8 L, MCV 88.9, MCH 27.9, MCHC 31.4 L, Plt Count 261, MPV 10.9, Immature Gran % (Auto) 0.300, Neut % ( Auto) 72.1 H, Lymph % (Auto) 14.9 L, [place] % (Auto) 8.9, Eos % (Auto) 3.5, Baso % (Auto) 0.3, Absolute Neuts (auto) 6.2, Nucleated RBC % 0 10/16/20 06:10: Sodium 139, Potassium 3.6, Chloride 106, Carbon Dioxide 27.0, Anion Gap 6, BUN 23 H, Creatinine 0.84, Est GFR (MDRD) Af Amer 84, Est GFR (MDRD) Non-Af 69, BUN/Creatinine Ratio 27.4 H, Glucose 116 H, Calcium 9.5, Magnesium 2.2 Rhythm: EKG: ECHO: Stress Test: Cardiac Cath: PCI: CT Surgery: Holter monitor: EPS: PPM: CXR: Chest CT Scan: Assessment/Plan 80-year-old patient, admitted with symptoms of lower extremity swelling and shortness of breath. This patient had history of chronic atrial fibrillation and has been on treatment with sotalol, metoprolol and Pradaxa On this admission cardiac consultation requested to review and discuss her med ication Noted she is still in underlying atrial fibrillation with rapid ventricular response Symptoms is improving she was seen today along with the nursing staff sitting out in a chair. Review of the telemetry showed underlying atrial fibrillation Noted from record as well patient has a prior cardioversion. From cardiac standpoint Added Cardizem CD 120 mg daily, in addition to her current treatment with sotalol 120 mg twice daily Patient to continue on the dabigatran/Pradaxa I reviewed her current evaluation here including her labs her renal function is within normal. If she remains stable would recommend to follow-up with her primary wall worker For continuation of cardiac care.
[2020-10-16] MEDS: Calcium Carbonate 500 MG Tablet 1000 MG PO (15:12)
[2020-10-16] MEDS: dilTIAZem CD 120 MG Capsule PO (15:18)
--- NOTE | 2020-10-16 15:55 | PN_ITS ---
Patient Problems: Active and Suspected Problems (Last Reviewed 10/16/20 @ 01:[address] Frank Del Rosario MD) Atrial fibrillation with RVR (Acute) CHF (congestive heart failure) (Acute) Dyspnea on exertion (Acute) Subjective: Feels well. Denies any chest pain, shortness of breath, lightheadedness. Still tachycardic Vitals/I&O's: Vital Signs Temp Pulse Resp BP Pulse Ox 98.2 F 125 H 18 141/99 H 99 10/16/20 15:14 10/16/20 15:14 10/16/20 15:14 10/16/20 15:14 10/16/20 15:14 Oxygen Delivery Method Room Air Weight: 238 lb 1.588 oz Body Mass Index (BMI) 46.0 Intake and Output for Last 24 Hours 10/14/20 10/15/20 10/16/20 23:59 23:59 23:59 Intake Total Balance General: Alert, Oriented x3, Cooperative, No apparent distress HEENT: Atraumatic, PERRLA, EOMI, Normocephalic Oral: Moist Mucosa Neck: Supple, No JVD Lungs: Clear to auscultation, Normal air movement, No rhonchi, No wheeze, No rales, Diminished Cardiovascular: Normal S1, Normal S2, No murmurs, Irregular Rate Abdomen: Soft, Non Tender, Non-Distended, No Hepato-splenomegaly Extremities: Capillary Refill Less than 3 Seconds, Edema - 2+ pitting edema bilaterally Skin: No rashes, No breakdown Neurological: Neuro grossly intact, Sensory exam intact to light touch and pain Psych/Mental Status: Normal Affect, Appropriate Laboratory Results 10/15/20 21:21: WBC 9.3, RBC 4.15 L, Hgb 11.7 L, Hct 36.7 L, MCV 88.4, MCH 28.2, MCHC 31.9 L, RDW Std Deviation 46.5 H, RDW Coeff of Berenice 14.6, Plt Count 325, MPV 10.4, Immature Gran % (Auto) 0.400, Neut % (Auto) 72.5 H, Lymph % (Auto) 14.8 L, [place] % (Auto) 8.1, Eos % (Auto) 3.8, Baso % (Auto) 0.4, Absolute Neuts (auto) 6.7, Absolute Lymphs (auto) 1.37, Nucleated RBC % 0 10/15/20 21:21: Sodium 141, Potassium 4.3, Chloride 104, Carbon Dioxide 29.0, Anion Gap 8, BUN 25 H, Creatinine 1.12 H, Estim Creat Clear Calc 27.82, Est GFR (MDRD) Af Amer 60, Est GFR (MDRD) Non-Af 49 L, BUN/Creatinine Ratio 22.3 H, Glucose 142 H, Calcium 10.2 H, Troponin I < 0.015 10/15/20 21:21: B-Natriuretic Peptide 365.5 H 10/16/20 06:10: WBC 8.7, RBC 3.80 L, Hgb 10.6 L, Hct 33.8 L, MCV 88.9, MCH 27.9, MCHC 31.4 L, RDW Std Deviation 46.5 H, RDW Coeff of Berenice 14.5, Plt Count 261, MPV 10.9, Immature Gran % (Auto) 0.300, Neut % (Auto) 72.1 H, Lymph % (Auto) 14.9 L, [place] % (Auto) 8.9, Eos % (Auto) 3.5, Baso % (Auto) 0.3, Absolute Neuts (auto) 6.2, Absolute Lymphs (auto) 1.29, Nucleated RBC % 0 10/16/20 06:10: Sodium 139, Potassium 3.6, Chloride 106, Carbon Dioxide 27.0, Anion Gap 6, BUN 23 H, Creatinine 0.84, Estim Creat Clear Calc 37.09, Est GFR (MDRD) Af Amer 84, Est GFR (MDRD) Non-Af 69, BUN/Creatinine Ratio 27.4 H, Glucose 116 H, Calcium 9.5, Magnesium 2.2, TSH 2.85 10/16/20 06:57: POC Glucose 117 H 10/16/20 11:16: POC Glucose 170 H Current Medications Ascorbic Acid (Ascorbic Acid 500 Mg Tablet) 500 mg PO DAILY [facility] Last Admin: 10/16/20 09:05 Dose: 500 mg Documented by: Aspirin (Aspirin 81 Mg Tab.Chew) 81 mg PO DAILY@0800 [facility] Last Admin: 10/16/20 09:03 Dose: 81 mg Documented by: Atorvastatin Calcium (Atorvastatin Calcium 20 Mg Tablet) 20 mg PO QHS [facility] Calcium Carbonate (Calcium Carbonate 500 Mg Tablet) 1,000 mg PO Q4H PRN PRN PRN Reason: INDIGESTION Last Admin: 10/16/20 15:12 Dose: 1,000 mg Documented by: Calcium/Vitamin D (Calcium Carb/Vitamin D 1 Tablet Tablet) [facility] Last Admin: 10/16/20 09:05 Dose: 1 tablet Documented by: Dabigatran (Dabigatran Etexilate Mesylate 150 Mg Capsule) 150 mg PO BID [facility] Last Admin: 10/16/20 11:17 Dose: 150 mg Documented by: Dextrose (Dextrose 50%-Water 25 Gm/50 Ml Disp.Syrin) 0 gm IV X1 PRN; Protocol PRN Reason: Hypoglycemia Diltiazem HCl (Diltiazem Cd 120 Mg Capsule) 120 mg PO DAILY [facility] Last Admin: 10/16/20 15:18 Dose: 120 mg Documented by: Furosemide (Furosemide 40 Mg/4 Ml Vial) 40 mg IV BID@1000,1800 [facility] Last Admin: 10/16/20 09:14 Dose: 40 mg Documented by: Gabapentin (Gabapentin 300 Mg Capsule) 300 mg PO TID [facility] Last Admin: 10/16/20 15:18 Dose: 300 mg Documented by: Glucagon (Glucagon 1 Mg/Ml Syringe) 1 mg IM .X1 PRN PRN Reason: Hypoglycemia Sodium Chloride () 250 mls @ 15 mls/hr IV .[id number] PRN PRN Reason: Saline Flush Sodium Chloride () 250 mls @ 15 mls/hr IV .[id number] PRN PRN Reason: Additional IVPB Infusion Insulin Human Lispro (Insulin Lispro 100 Unit/Ml Insuln.Pen) 0 unit SC [facility]; Protocol Last Admin: 10/16/20 11:18 Dose: Not Given Documented by: Lidocaine (Lidocaine 5% Patch) 1 patch TOPICAL DAILY [facility]; Protocol Last Admin: 10/16/20 09:08 Dose: 1 patch Documented by: Magnesium Chloride (Magnesium Chloride 64 Mg Delay Rel.Tablet) 128 mg PO DAILY [facility] Last Admin: 10/16/20 09:05 Dose: 128 mg Documented by: Melatonin (Melatonin 3 Mg Tablet) 3 mg PO QHS PRN PRN PRN Reason: INSOMNIA Multivitamins (Multivitamins,Therapeutic Tablet) [facility] Last Admin: 10/16/20 09:04 Dose: 1 tablet Documented by: Nystatin (Nystatin Ointment) 1 applic TOPICAL QODAY PRN; Protocol PRN Reason: Nerve Pain Under Breasts Nystatin/Triamcinolone Acetonide (Nystatin/Triamcin Cream Tube) 1 applic TOPICAL BID [facility] Last Admin: 10/16/20 09:09 Dose: 1 applicatio Documented by: Ondansetron HCl (Ondansetron 4 Mg/2 Ml Vial) 4 mg IV Q8H PRN PRN PRN Reason: NAUSEA/VOMITING Potassium Chloride (Potassium Chloride 20 Meq Tablet) 40 meq PO DAILYCM [facility] Last Admin: 10/16/20 09:03 Dose: 40 meq Documented by: Senna/Docusate Sodium (Senna/Docusate Sodium 1 Tablet) 2 tablet PO BID PRN PRN PRN Reason: Constipation Sodium Chloride (0.9% Saline Lock 10 Ml Syringe) 10 - 40 ml IV UD PRN PRN Reason: SALINE FLUSH Last Admin: 10/16/20 05:42 Dose: 20 ml Documented by: Sotalol HCl (Sotalol Hydrochloride 80 Mg Tablet) 120 mg PO BID [facility] Last Admin: 10/16/20 09:07 Dose: 120 mg Documented by: STROKE Vital Signs/Narrative: Vital Signs Temp Pulse Resp BP Pulse Ox 10/16/20 15:14 98.2 F 125 H 18 141/99 H 99 Medical Necessity - Tobacco Use Smoking Status: Never smoker Assessment/Plan All Active Problems (Last Reviewed 10/16/20 @ 01:[address] Frank Del Rosario MD) Atrial fibrillation with RVR (Acute) CHF (congestive heart failure) (Acute) Dyspnea on exertion (Acute) Atrial fibrillation with rapid ventricular response (Resolved) Heme + stool (Resolved) 1. A. fib with RVR/HTN/HLD/acute on chronic systolic CHF -Echo performed today demonstrated an EF of 40 to 45% with mild to moderate global left ventricular systolic dysfunction and mild to moderate global hypokinesis of the left ventricle -Preshaped cardiology assistance -Continue with sotalol and Cardizem to try to control the heart rate, -Continue with IV Lasix twice daily -She is anticoagulated with Pradaxa -Continue with aspirin, Lipitor, and will hold lisinopril as she was added Cardizem 120 mg daily, will also hold her home metoprolol 25 mg p.o. twice daily 2. DM 2/morbid obesity -We will hold her home metformin and continue with sliding scale insulin -Accu-Cheks AC at bedtime, will adjust as necessary -BMI 46.5, discussed lifestyle modifications 3. MARICRUZ?resolved DVT: Pradaxa Inpatient E&M: [id number] Subs Hosp L2
[2020-10-16 17:15] LABS: Bedside Glucose 123 mg/dL (70-110)
[2020-10-16] MEDS: Atorvastatin Calcium 20 MG Tablet PO (21:33)
[2020-10-16] MEDS: Insulin Lispro 100 UNIT/ML INSULN.PEN SC (22:50)
[2020-10-16 22:51] LABS: Bedside Glucose 167 mg/dL (70-110)
[2020-10-17] VITALS (34 sets, daily range): BP systolic 105–147; BP diastolic 58–108; PULSE 81–124; RESP 16–24; TEMP 36.6–37.1; O2SAT 91–98
[2020-10-17] MEDS: 0.9% Saline Lock 10 ML Syringe IV (00:24)
[2020-10-17] MEDS: Gabapentin 300 MG Capsule PO ×3 (06:35→21:50)
[2020-10-17] MEDS: guaiFENesin 1,200 MG Tablet 1200 MG PO ×2 (06:35→21:50)
[2020-10-17 06:45] LABS: Bedside Glucose 159 mg/dL (70-110)
[2020-10-17 07:16] LABS: Anion Gap 8 (5-15); BUN 24 mg/dL (7-18); BUN/Creat Ratio 24.1 RATIO (10-20); Calcium,Total 9.2 mg/dL (8.5-10.1); Chloride 104 mmol/L (98-107); EST Glomerular Filtration Rate 57 mL/min (>60); Est Glom Filt Rate - Afr Amer 68 mL/min (>60); Estimated Creatinine Clearance 31.15 ml/min; Glucose 154 mg/dL (74-106); Potassium 3.6 mmol/L (3.5-5.1); Sodium Level 140 mmol/L (136-145)
[2020-10-17] MEDS: Multivitamins,Therapeutic Tablet 1 TABLET PO (08:05)
[2020-10-17] MEDS: Magnesium Chloride 64 MG Delay Rel.Tablet 128 MG PO (08:05)
[2020-10-17] MEDS: Calcium Carb/Vitamin D 1 TABLET Tablet PO (08:06)
[2020-10-17] MEDS: Aspirin 81 MG TAB.CHEW PO (08:06)
[2020-10-17] MEDS: Ascorbic Acid 500 MG Tablet PO (08:07)
[2020-10-17] MEDS: Lidocaine 5% Patch 1 PATCH TOPICAL (08:09)
[2020-10-17] MEDS: Dabigatran Etexilate Mesylate 150 MG Capsule PO ×2 (09:26→21:50)
[2020-10-17] MEDS: Sotalol Hydrochloride 80 MG Tablet 120 MG PO ×2 (09:27→21:50)
[2020-10-17] MEDS: Nystatin/Triamcin Cream Tube 1 APPLIC TOPICAL ×2 (09:43→21:49)
--- NOTE | 2020-10-17 11:15 | PCM.PN.HOSP ---
Patient Problems: Active and Suspected Problems (Last Reviewed 10/16/20 @ 01:[address] Frank Del Rosario MD) Atrial fibrillation with RVR (Acute) CHF (congestive heart failure) (Acute) Dyspnea on exertion (Acute) Subjective: She feels better today though she had to be placed on a Cardizem drip overnight because of her heart rate climbing back up. Vitals/I&O's: Vital Signs Temp Pulse Resp BP Pulse Ox 98.3 F 81 20 H 118/108 H 92 10/17/20 10:00 10/17/20 11:00 10/17/20 11:00 10/17/20 11:00 10/17/20 11:00 Oxygen Delivery Method Room Air Weight: 237 lb 3.478 oz Body Mass Index (BMI) 46.0 Intake and Output for Last 24 Hours 10/15/20 10/16/20 10/17/20 23:59 23:59 23:59 Intake Total 130 / 130 190.17 / 190.17 Output Total 400 / 400 Balance 130 / 130 -209.83 / -209.83 General: Alert, Oriented x3, Cooperative, No apparent distress HEENT: Atraumatic, PERRLA, EOMI, Normocephalic Oral: Moist Mucosa Neck: Supple, No JVD Lungs: Clear to auscultation, Normal air movement, No rhonchi, No wheeze, No rales, Diminished Cardiovascular: Normal S1, Normal S2, No murmurs, Irregular Rate Abdomen: Soft, Non Tender, Non-Distended, No Hepato-splenomegaly Extremities: Capillary Refill Less than 3 Seconds, Edema - 1+ pitting edema bilaterally Skin: No rashes, No breakdown Neurological: Neuro grossly intact, Sensory exam intact to light touch and pain Psych/Mental Status: Normal Affect, Appropriate Laboratory Results 10/16/20 11:16: POC Glucose 170 H 10/16/20 17:02: POC Glucose 123 H 10/16/20 22:47: POC Glucose 167 H 10/17/20 06:05: Sodium 140, Potassium 3.6, Chloride 104, Carbon Dioxide 28.0, Anion Gap 8, BUN 24 H, Creatinine 1.00, Estim Creat Clear Calc 31.15, Est GFR (MDRD) Af Amer 68, Est GFR (MDRD) Non-Af 57 L, BUN/Creatinine Ratio 24.1 H, Glucose 154 H, Calcium 9.2 10/17/20 06:33: POC Glucose 159 H Current Medications Ascorbic Acid (Ascorbic Acid 500 Mg Tablet) 500 mg PO DAILY [facility] Last Admin: 10/17/20 08:07 Dose: 500 mg Documented by: Aspirin (Aspirin 81 Mg Tab.Chew) 81 mg PO DAILY@0800 [facility] Last Admin: 10/17/20 08:06 Dose: 81 mg Documented by: Atorvastatin Calcium (Atorvastatin Calcium 20 Mg Tablet) 20 mg PO QHS [facility] Last Admin: 10/16/20 21:33 Dose: 20 mg Documented by: Calcium Carbonate (Calcium Carbonate 500 Mg Tablet) 1,000 mg PO Q4H PRN PRN PRN Reason: INDIGESTION Last Admin: 10/16/20 15:12 Dose: 1,000 mg Documented by: Calcium/Vitamin D (Calcium Carb/Vitamin D 1 Tablet Tablet) [facility] Last Admin: 10/17/20 08:06 Dose: 1 tablet Documented by: Dabigatran (Dabigatran Etexilate Mesylate 150 Mg Capsule) 150 mg PO BID [facility] Last Admin: 10/17/20 09:26 Dose: 150 mg Documented by: Dextrose (Dextrose 50%-Water 25 Gm/50 Ml Disp.Syrin) 0 gm IV X1 PRN; Protocol PRN Reason: Hypoglycemia Diltiazem HCl (Diltiazem Cd 180 Mg Capsule) 180 mg PO DAILY [facility] Furosemide (Furosemide 40 Mg/4 Ml Vial) 40 mg IV BID@1000,1800 [facility] Last Admin: 10/16/20 17:05 Dose: 40 mg Documented by: Gabapentin (Gabapentin 300 Mg Capsule) 300 mg PO TID [facility] Last Admin: 10/17/20 06:35 Dose: 300 mg Documented by: Glucagon (Glucagon 1 Mg/Ml Syringe) 1 mg IM .X1 PRN PRN Reason: Hypoglycemia Guaifenesin (Guaifenesin 1,200 Mg Tablet) 1,200 mg PO BID [facility] Last Admin: 10/17/20 06:35 Dose: 1,200 mg Documented by: Sodium Chloride () 250 mls @ 15 mls/hr IV .[id number] PRN PRN Reason: Saline Flush Sodium Chloride () 250 mls @ 15 mls/hr IV .[id number] PRN PRN Reason: Additional IVPB Infusion Diltiazem HCl 125 mg/ Dextrose 125 mls @ 5 mls/hr IV .Q25H [facility]; Protocol Last Titration: 10/17/20 11:00 Dose: 5 mg/hr, 5 mls/hr Documented by: Insulin Human Lispro (Insulin Lispro 100 Unit/Ml Insuln.Pen) 0 unit SC ACHS [facility]; Protocol Last Admin: 10/17/20 06:35 Dose: Not Given Documented by: Lidocaine (Lidocaine 5% Patch) 1 patch TOPICAL DAILY [facility]; Protocol Last Admin: 10/17/20 08:09 Dose: 1 patch Documented by: Magnesium Chloride (Magnesium Chloride 64 Mg Delay Rel.Tablet) 128 mg PO DAILY [facility] Last Admin: 10/17/20 08:05 Dose: 128 mg Documented by: Melatonin (Melatonin 3 Mg Tablet) 3 mg PO QHS PRN PRN PRN Reason: INSOMNIA Multivitamins (Multivitamins,Therapeutic Tablet) [facility] Last Admin: 10/17/20 08:05 Dose: 1 tablet Documented by: Nystatin (Nystatin Ointment) 1 applic TOPICAL QODAY PRN; Protocol PRN Reason: Nerve Pain Under Breasts Nystatin/Triamcinolone Acetonide (Nystatin/Triamcin Cream Tube) 1 applic TOPICAL BID [facility] Last Admin: 10/17/20 09:43 Dose: 1 applicatio Documented by: Ondansetron HCl (Ondansetron 4 Mg/2 Ml Vial) 4 mg IV Q8H PRN PRN PRN Reason: NAUSEA/VOMITING Potassium Chloride (Potassium Chloride 20 Meq Tablet) [facility] Last Admin: 10/17/20 08:05 Dose: 40 meq Documented by: Senna/Docusate Sodium (Senna/Docusate Sodium 1 Tablet) 2 tablet PO BID PRN PRN PRN Reason: Constipation Sodium Chloride (0.9% Saline Lock 10 Ml Syringe) 10 - 40 ml IV UD PRN PRN Reason: SALINE FLUSH Last Admin: 10/17/20 00:24 Dose: 20 ml Documented by: Sotalol HCl (Sotalol Hydrochloride 80 Mg Tablet) 120 mg PO BID [facility] Last Admin: 10/17/20 09:27 Dose: 120 mg Documented by: Throat Lozenges (Benzocaine/Menthol 1 Lozenge) 1 lozenge MUCOUS MEM Q2H PRN PRN PRN Reason: SORE THROAT STROKE Vital Signs/Narrative: Vital Signs Temp Pulse Resp BP Pulse Ox 10/17/20 11:00 81 20 H 118/108 H 92 10/17/20 10:30 82 129/80 H 10/17/20 10:00 98.3 F 83 22 H 111/69 93 10/17/20 09:58 93 10/17/20 09:30 83 119/70 10/17/20 09:00 82 19 H 122/67 H 93 10/17/20 08:00 84 23 H 133/71 H 91 Medical Necessity - Tobacco Use Smoking Status: Never smoker Assessment/Plan All Active Problems (Last Reviewed 10/16/20 @ 01:[address] Frank Del Rosario MD) Atrial fibrillation with RVR (Acute) CHF (congestive heart failure) (Acute) Dyspnea on exertion (Acute) Atrial fibrillation with rapid ventricular response (Resolved) Heme + stool (Resolved) 1. A. fib with RVR/HTN/HLD/acute on chronic systolic CHF -Echo performed today demonstrated an EF of 40 to 45% with mild to moderate global left ventricular systolic dysfunction and mild to moderate global hypokinesis of the left ventricle -Preshaped cardiology assistance -Continue with sotalol and Cardizem to try to control the heart rate, will decrease the Cardizem drip rate and increase her p.o. Cardizem from 11 24- -Continue with IV Lasix daily -She is anticoagulated with Pradaxa -Continue with aspirin, Lipitor, and will hold lisinopril as she was added Cardizem 180 mg daily, will also hold her home metoprolol 25 mg p.o. twice daily 2. DM 2/morbid obesity -We will hold her home metformin and continue with sliding scale insulin -Accu-Cheks AC at bedtime, will adjust as necessary -BMI 46.5, discussed lifestyle modifications 3. MARICRUZ?resolved DVT: Pradaxa Inpatient E&M: [id number] Subs Hosp L2
[2020-10-17] MEDS: Furosemide 40 MG/4 ML Vial IV (11:24)
[2020-10-17] MEDS: dilTIAZem CD 180 MG Capsule PO (12:10)
[2020-10-17 12:15] LABS: Bedside Glucose 153 mg/dL (70-110)
--- NOTE | 2020-10-17 12:15 | PCM.PN.CARD ---
Subjectve: Still has a underlying A. fib with fast ventricular rate last night Discussed the cardiac recommendation and medication with the nursing staff Her symptoms shortness of breath. On the cardiac telemetry still showed underlying atrial fibrillation. Echocardiogram evaluation showed reduced LV systolic function in comparison to the prior echo. With ejection fraction in the range of around 40-45% with still mild MR ,mild TR with moderately enlarged left atrium and no pericardial effusion Review of the current medication will continue the sotalol, diltiazem CD increased 180 mg And patient will continue on the Depakote 3 The diuretic dose reduced to once a day with a plan of shifting to p.o. Lasix likely tomorrow. Dr.Paul Mckeon primary equipment monitor phototypesetting of this patient will follow-up for continuation of cardiac care. Objective: Vital Signs Temp Pulse Resp BP Pulse Ox 98.3 F 81 20 H 118/108 H 92 10/17/20 10:00 10/17/20 11:00 10/17/20 11:00 10/17/20 11:00 10/17/20 11:00 Oxygen Delivery Method Room Air Weight: 237 lb 3.478 oz Body Mass Index (BMI) 46.0 Intake and Output for Last 24 Hours 10/15/20 10/16/20 10/17/20 23:59 23:59 23:59 Intake Total 130 / 130 190.17 / 190.17 Output Total 400 / 400 Balance 130 / 130 -209.83 / -209.83 10/17/20 06:05: Sodium 140, Potassium 3.6, Chloride 104, Carbon Dioxide 28.0, Anion Gap 8, BUN 24 H, Creatinine 1.00, Est GFR (MDRD) Af Amer 68, Est GFR (MDRD) Non-Af 57 L, BUN/Creatinine Ratio 24.1 H, Glucose 154 H, Calcium 9.2 Rhythm: EKG: ECHO: Stress Test: Cardiac Cath: PCI: CT Surgery: Holter monitor: EPS: PPM: CXR: Chest CT Scan: Medical Necessity - Tobacco Use Smoking Status: Never smoker
[2020-10-17 18:11] LABS: Bedside Glucose 135 mg/dL (70-110)
--- NOTE | 2020-10-17 18:25 | RAD_ITS ---
STUDY: X-RAY CHEST REASON FOR EXAM: Female, 80 years old. Possible aspiration TECHNIQUE: Single frontal view of the chest. COMPARISON: 10/15/20. FINDINGS: Cardiac silhouette unremarkable. Pulmonary vascularity unremarkable. Aorta unremarkable. No focal airspace opacities. No pleural effusions. Upper abdomen unremarkable. Osseous structures intact. No pneumothorax. RAD/Chest 1 View (Portable) IMPRESSION: No acute cardiopulmonary process identified. Electronically Signed: Gary Wiley, at 20:15 EST Tel , Service support ,
[2020-10-17] MEDS: Atorvastatin Calcium 20 MG Tablet PO (21:50)
[2020-10-17 22:26] LABS: Bedside Glucose 144 mg/dL (70-110)
[2020-10-18 02:53] VITALS: BP 140/70; PULSE 100; RESP 20; TEMP 36.9; O2SAT 94
[2020-10-18 03:00] VITALS: PULSE 104
[2020-10-18 05:27] LABS: Absolute Lymphocyte Count 1.03 X10^3/uL (0.83-4.51); Absolute Neutrophil Count 7.6 X10^3/uL (2.0-7.7); Basophil# 0.03 X10^3/uL; Basophil% 0.3 % (0-1); Eosinophil# 0.29 X10^3/uL; Eosinophils% 2.9 % (0-5); Hematocrit 32.7 % (37-47); Hemoglobin 10.1 g/dL (12.0-15.0); Lymphocyte # 1.03 X10^3/ul (4.0); Lymphocyte % 10.4 % (19-41); Mean Corp Hgb Conc 30.9 g/dL (32-36); Mean Corpuscular Hgb 27.7 pg (27.0-32.0); Mean Corpuscular Volume 89.6 fL (81-99); Mean Platelet Vol. 10.1 fl (6.2-12.0); Monocyte# 0.93 X10^3/uL; Monocyte% 9.4 % (0-10); NRBC Flagged by Analyzer 0 % (0-5); Neutrophil # 7.62 X10^3/uL (2.7-7.7); Neutrophil % 76.7 % (47-70); Platelet Count 266 K/mm3 (150-450); RBC Distribution Width CV 14.6 % (11.6-14.6); RBC Distribution Width SD 47.3 fl (35.1-43.9); Red Blood Count 3.65 M/mm3 (4.2-5.4); White Blood Count 9.9 K/mm3 (4.4-11.0)
[2020-10-18 05:40] LABS: Anion Gap 4 (5-15); BUN 19 mg/dL (7-18); BUN/Creat Ratio 22.9 RATIO (10-20); Calcium,Total 8.9 mg/dL (8.5-10.1); Chloride 106 mmol/L (98-107); Creatinine, Serum 0.83 mg/dL (0.55-1.02); EST Glomerular Filtration Rate 70 mL/min (>60); Est Glom Filt Rate - Afr Amer 85 mL/min (>60); Estimated Creatinine Clearance 37.54 ml/min; Glucose 136 mg/dL (74-106); Potassium 3.7 mmol/L (3.5-5.1); Sodium Level 140 mmol/L (136-145)
[2020-10-18] MEDS: Gabapentin 300 MG Capsule PO ×2 (06:48→13:12)
[2020-10-18 07:00] LABS: Bedside Glucose 135 mg/dL (70-110)
[2020-10-18 07:13] VITALS: PULSE 103
[2020-10-18 08:40] VITALS: BP 135/78; PULSE 80; RESP 15; TEMP 37.2; O2SAT 94
[2020-10-18] MEDS: Multivitamins,Therapeutic Tablet 1 TABLET PO (09:47)
[2020-10-18] MEDS: Aspirin 81 MG TAB.CHEW PO (09:48)
[2020-10-18] MEDS: Calcium Carb/Vitamin D 1 TABLET Tablet PO (09:48)
[2020-10-18] MEDS: Magnesium Chloride 64 MG Delay Rel.Tablet 128 MG PO (09:50)
[2020-10-18] MEDS: guaiFENesin 1,200 MG Tablet 1200 MG PO (09:50)
[2020-10-18] MEDS: dilTIAZem CD 180 MG Capsule PO (09:51)
[2020-10-18] MEDS: Ascorbic Acid 500 MG Tablet PO (09:51)
[2020-10-18] MEDS: Dabigatran Etexilate Mesylate 150 MG Capsule PO (09:51)
[2020-10-18] MEDS: Sotalol Hydrochloride 80 MG Tablet 120 MG PO (09:52)
[2020-10-18] MEDS: 0.9% Saline Lock 10 ML Syringe IV (10:00)
[2020-10-18] MEDS: Furosemide 40 MG/4 ML Vial IV (10:00)
[2020-10-18] MEDS: Nystatin/Triamcin Cream Tube 1 APPLIC TOPICAL (10:01)
[2020-10-18] MEDS: Lidocaine 5% Patch 1 PATCH TOPICAL (10:03)
[2020-10-18] MEDS: Insulin Lispro 100 UNIT/ML INSULN.PEN SC (12:09)
[2020-10-18 12:10] LABS: Bedside Glucose 174 mg/dL (70-110)
[2020-10-18 12:25] VITALS: PULSE 102
--- NOTE | 2020-10-18 12:39 | DCINST_ITS ---
- Discharge Diagnoses Current Active Problems: Current Active and Chronic Problems (Last Reviewed 10/16/20 @ 01:[address] Frank Del Rosario MD) Atrial fibrillation with RVR (Acute) CHF (congestive heart failure) (Acute) Pure hypercholesterolemia (Chronic) Type 2 diabetes mellitus (Chronic) Paroxysmal atrial flutter (Chronic) Bilateral leg edema (Chronic) Dyspnea on exertion (Acute) Essential hypertension (Chronic) Paroxysmal atrial fibrillation (Chronic) You will use the following diet at home:: Calorie/Carbohydrate Controlled (specify 1200, 1400, etc) - 1800, Cardiac, Fluid restricted (specify 2000 mls, 1500 mls) - 1500 Your food should be the consistency of: Soft (bite-sized & easy to chew/swallow) Discharge Activity: Return to Normal Activity Allergies/Adverse Reactions: Allergies No Known Allergies Allergy (Verified 10/15/20 21:01) Medications to take at Discharge Aspirin [Aspirin, Baby] 81 mg PO DAILY@0800 10/12/14 Calcium Carb/Vitamin D [Caltrate-600 With Vit D Tab] 1 tab PO BID 10/12/14 Multivitamins,Therapeutic [Multivitamin] 1 tab PO DAILY 10/12/14 metformin 500 mg tablet 500 mg PO BID tab 11/21/17 ascorbic acid (vitamin C) 500 mg capsule 500 mg PO QDAY cap 03/29/18 gabapentin 600 mg tablet 600 mg PO TID 03/29/18 lidocaine 5 % topical patch 1 patch TOPICAL DAILY 03/29/18 atorvastatin 20 mg tablet 20 mg PO QHS #90 tab 01/12/20 dabigatran etexilate 150 mg capsule 150 mg PO BID #180 cap 01/12/20 furosemide 40 mg tablet 40 mg PO BID #180 tab 01/12/20 lisinopril 20 mg tablet 20 mg PO BID #180 tab 01/12/20 magnesium oxide 400 mg (241.3 mg magnesium) tablet 400 mg PO QDAY #90 tab 01/12/20 sotalol 80 mg tablet 120 mg PO BID #270 tab 01/12/20 Nystatin/Triamcin [Nystatin-Triamcinolone Ointm] 1 applic TOPICAL BID 10/15/20 Nystatin Powder [Mycostatin Powder] 1 applicatio TOPICAL QODAY PRN 10/16/20 Diltiazem CD [Cardizem CD] 180 mg PO DAILY #60 cap 12/14/20 Potassium Chloride [K-Dur] 40 meq PO DAILYCM #60 tab 10/18/20 The following prescriptions were given: Diltiazem CD [Cardizem CD] 180 mg PO DAILY #60 cap Transmission Status: [id number] Potassium Chloride [K-Dur] 40 meq PO DAILYCM #60 tab Transmission Status: [id number] Primary Care Physician: Freddie Arauz MD [Primary Care Provider] - Please follow up with your Primary Care Physician in: in 1-2 weeks Test Results: Test results from this visit will be discussed in further detail at your follow- up appointment, if applicable. Please Follow Up With: Riccardo Mckeon MD When: in 2-4 weeks Proposed Discharge Date: 10/18/20
--- NOTE | 2020-10-18 12:52 | DS.PCM_ITS ---
Discharge Date and Diagnosis - Problem List Patient Problems: Active and Suspected Problems (Last Reviewed 10/16/20 @ 01:[address] Frank Del Rosario MD) Atrial fibrillation with RVR (Acute) CHF (congestive heart failure) (Acute) Dyspnea on exertion (Acute) Date of Admission: 10/15/20 Date of Discharge: 10/18/20 - Primary Discharge Diagnosis Acute Problems: Active Problems (Last Reviewed 10/16/20 @ 01:[address] Frank Del Rosario MD) Atrial fibrillation with RVR (Acute) CHF (congestive heart failure) (Acute) Dyspnea on exertion (Acute) - Secondary Discharge Diagnosis Chronic Problems: Chronic Problems (Last Reviewed 10/16/20 @ 01:[address] Frank Del Rosario MD) Pure hypercholesterolemia (Chronic) Type 2 diabetes mellitus (Chronic) Paroxysmal atrial flutter (Chronic) Bilateral leg edema (Chronic) Essential hypertension (Chronic) Paroxysmal atrial fibrillation (Chronic) Hospital Course and Treatment Summary of Care Provided: The patient is a 80 year old F with multiple comorbidities admitted with progressive shortness of breath found to be in A. fib with RVR as well as CHF. 1. Acute on chronic systolic heart failure with reduced ejection fraction ?Admitted to monitored bed patient was managed with fluid restriction, daily weight, strict input and output as well as IV diuretics. Echo obtained on 10/16/2020 demonstrated EF of 40 to 45% 2. Paroxysmal A. fib with RVR ?Admitted to monitored bed patient was on sotalol was continued. Was also on metoprolol this was discontinued patient started on Cardizem per recommendations from cardiology. Patient was already on systemic anticoagulation with Pradaxa did continue 3. Hypokalemia ?Corrected per protocol 4. Dyslipidemia -Patient is on statin therapy, continued at home dose 5. Diabetes mellitus type II -patient's oral hypoglycemics held. -Placed on long acting insulin, Accu-Cheks a.c. and at bedtime and covered with sliding scale insulin 6. Hypertension - Blood pressure controlled, home medications continued with dose adjustment as needed 7. DVT prophylaxis ?Pradaxa Patient Problems: Active and Suspected Problems (Last Reviewed 10/16/20 @ 01:[address] Frank Del Rosario MD) Atrial fibrillation with RVR (Acute) CHF (congestive heart failure) (Acute) Dyspnea on exertion (Acute) - Physical Exam Vitals/I&O's: Vital Signs Temp Pulse Resp BP Pulse Ox 98.9 F 102 H 15 135/78 H 94 10/18/20 08:40 10/18/20 12:25 10/18/20 08:40 10/18/20 08:40 10/18/20 08:40 Oxygen Delivery Method Room Air Weight: 105.3 kg Body Mass Index (BMI) 46.0 Intake and Output for Last 24 Hours 10/16/20 10/17/20 10/18/20 23:59 23:59 23:59 Intake Total 130 / 130 691.42 / 691.42 500 / 500 Output Total 1500 / 1500 700 / 700 Balance 130 / 130 -808.58 / -808.58 -200 / -200 General: Alert Lungs: Diminished Cardiovascular: Irregular Rate Neurological: Neuro grossly intact Psych/Mental Status: Normal Affect Laboratory Results 10/17/20 17:06: POC Glucose 135 H 10/17/20 21:43: POC Glucose 144 H 10/18/20 05:14: WBC 9.9, RBC 3.65 L, Hgb 10.1 L, Hct 32.7 L, MCV 89.6, MCH 27.7, MCHC 30.9 L, RDW Std Deviation 47.3 H, RDW Coeff of Berenice 14.6, Plt Count 266, MPV 10.1, Immature Gran % (Auto) 0.300, Neut % (Auto) 76.7 H, Lymph % (Auto) 10.4 L, [place] % (Auto) 9.4, Eos % (Auto) 2.9, Baso % (Auto) 0.3, Absolute Neuts (auto) 7.6, Absolute Lymphs (auto) 1.03, Nucleated RBC % 0 10/18/20 05:14: Sodium 140, Potassium 3.7, Chloride 106, Carbon Dioxide 30.0, Anion Gap 4 L, BUN 19 H, Creatinine 0.83, Estim Creat Clear Calc 37.54, Est GFR (MDRD) Af Amer 85, Est GFR (MDRD) Non-Af 70, BUN/Creatinine Ratio 22.9 H, Glucose 136 H, Calcium 8.9 10/18/20 06:50: POC Glucose 135 H 10/18/20 12:05: POC Glucose 174 H Current Medications Ascorbic Acid (Ascorbic Acid 500 Mg Tablet) 500 mg PO DAILY DERRELL Last Admin: 10/18/20 09:51 Dose: 500 mg Documented by: Aspirin (Aspirin 81 Mg Tab.Chew) 81 mg PO DAILY@0800 [facility] Last Admin: 10/18/20 09:48 Dose: 81 mg Documented by: Atorvastatin Calcium (Atorvastatin Calcium 20 Mg Tablet) 20 mg PO QHS [facility] Last Admin: 10/17/20 21:50 Dose: 20 mg Documented by: Calcium Carbonate (Calcium Carbonate 500 Mg Tablet) 1,000 mg PO Q4H PRN PRN PRN Reason: INDIGESTION Last Admin: 10/16/20 15:12 Dose: 1,000 mg Documented by: Calcium/Vitamin D (Calcium Carb/Vitamin D 1 Tablet Tablet) [facility] Admin: 10/18/20 09:48 Dose: 1 tablet Documented by: Dabigatran (Dabigatran Etexilate Mesylate 150 Mg Capsule) 150 mg PO BID [facility] Last Admin: 10/18/20 09:51 Dose: 150 mg Documented by: Dextrose (Dextrose 50%-Water 25 Gm/50 Ml Disp.Syrin) 0 gm IV X1 PRN; Protocol PRN Reason: Hypoglycemia Diltiazem HCl (Diltiazem Cd 180 Mg Capsule) 180 mg PO DAILY [facility] Last Admin: 10/18/20 09:51 Dose: 180 mg Documented by: Furosemide (Furosemide 40 Mg/4 Ml Vial) 40 mg IV DAILY [facility] Last Admin: 10/18/20 10:00 Dose: 40 mg Documented by: Gabapentin (Gabapentin 300 Mg Capsule) 300 mg PO TID [facility] Last Admin: 10/18/20 06:48 Dose: 300 mg Documented by: Glucagon (Glucagon 1 Mg/Ml Syringe) 1 mg IM .X1 PRN PRN Reason: Hypoglycemia Guaifenesin (Guaifenesin 1,200 Mg Tablet) 1,200 mg PO BID [facility] Last Admin: 10/18/20 09:50 Dose: 1,200 mg Documented by: Sodium Chloride () 250 mls @ 15 mls/hr IV .[id number] PRN PRN Reason: Saline Flush Sodium Chloride () 250 mls @ 15 mls/hr IV .[id number] PRN PRN Reason: Additional IVPB Infusion Insulin Human Lispro (Insulin Lispro 100 Unit/Ml Insuln.Pen) 0 unit SC [facility]; Protocol Last Admin: 10/18/20 12:09 Dose: 1 units Documented by: Lidocaine (Lidocaine 5% Patch) 1 patch TOPICAL DAILY [facility]; Protocol Last Admin: 10/18/20 10:03 Dose: 1 patch Documented by: Magnesium Chloride (Magnesium Chloride 64 Mg Delay Rel.Tablet) 128 mg PO DAILY [facility] Last Admin: 10/18/20 09:50 Dose: 128 mg Documented by: Melatonin (Melatonin 3 Mg Tablet) 3 mg PO QHS PRN PRN PRN Reason: INSOMNIA Multivitamins (Multivitamins,Therapeutic Tablet) [facility] Last Admin: 10/18/20 09:47 Dose: 1 tablet Documented by: Nystatin (Nystatin Ointment) 1 applic TOPICAL QODAY PRN; Protocol PRN Reason: Nerve Pain Under Breasts Nystatin/Triamcinolone Acetonide (Nystatin/Triamcin Cream Tube) 1 applic TOPI KHOI BID [facility] Last Admin: 10/18/20 10:01 Dose: 1 applicatio Documented by: Ondansetron HCl (Ondansetron 4 Mg/2 Ml Vial) 4 mg IV Q8H PRN PRN PRN Reason: NAUSEA/VOMITING Potassium Chloride (Potassium Chloride 20 Meq Tablet) 40 meq PO DAILYCM [facility] Last Admin: 10/18/20 09:48 Dose: 40 meq Documented by: Senna/Docusate Sodium (Senna/Docusate Sodium 1 Tablet) 2 tablet PO BID PRN PRN PRN Reason: Constipation Sodium Chloride (0.9% Saline Lock 10 Ml Syringe) 10 - 40 ml IV UD PRN PRN Reason: SALINE FLUSH Last Admin: 10/18/20 10:00 Dose: 20 ml Documented by: Sotalol HCl (Sotalol Hydrochloride 80 Mg Tablet) 120 mg PO BID [facility] Last Admin: 10/18/20 09:52 Dose: 120 mg Documented by: Throat Lozenges (Benzocaine/Menthol 1 Lozenge) 1 lozenge MUCOUS MEM Q2H PRN PRN PRN Reason: SORE THROAT Discharge Diet: Low fat/ Low Cholesterol, 1800 Calorie Control Diet, 8 Cup Fluid Restriciton, 2000 mg Sodium Diet Discharge Activity: Return to Normal Activity Home Medications: Medications to take at Discharge Aspirin [Aspirin, Baby] 81 mg PO DAILY@0800 10/12/14 Calcium Carb/Vitamin D [Caltrate-600 With Vit D Tab] 1 tab PO BID 10/12/14 Multivitamins,Therapeutic [Multivitamin] 1 tab PO DAILY 10/12/14 metformin 500 mg tablet 500 mg PO BID tab 11/21/17 ascorbic acid (vitamin C) 500 mg capsule 500 mg PO QDAY cap 03/29/18 gabapentin 600 mg tablet 600 mg PO TID 03/29/18 lidocaine 5 % topical patch 1 patch TOPICAL DAILY 03/29/18 atorvastatin 20 mg tablet 20 mg PO QHS #90 tab 01/12/20 dabigatran etexilate 150 mg capsule 150 mg PO BID #180 cap 01/12/20 furosemide 40 mg tablet 40 mg PO BID #180 tab 01/12/20 lisinopril 20 mg tablet 20 mg PO BID #180 tab 01/12/20 magnesium oxide 400 mg (241.3 mg magnesium) tablet 400 mg PO QDAY #90 tab 01/12/20 sotalol 80 mg tablet 120 mg PO BID #270 tab 01/12/20 Nystatin/Triamcin [Nystatin-Triamcinolone Ointm] 1 applic TOPICAL BID 10/15/20 Nystatin Powder [Mycostatin Powder] 1 applicatio TOPICAL QODAY PRN 10/16/20 Diltiazem CD [Cardizem CD] 180 mg PO DAILY #60 cap 10/18/20 Potassium Chloride [K-Dur] 40 meq PO DAILYCM #60 tab 10/18/20 Following Prescriptions Were Given to Patient: Diltiazem CD [Cardizem CD] 180 mg PO DAILY #60 cap Transmission Status: [id number] Potassium Chloride [K-Dur] 40 meq PO DAILYCM #60 tab Transmission Status: Pending to [facility]/pharmacy #[id number] Primary Care Physician: Freddie Arauz MD [Primary Care Provider] - Please follow up with your Primary Care Physician in: in 1-2 weeks Please Follow Up With: Riccardo Mckeon MD When: in 2-4 weeks Disposition: Home Minutes spent on discharge:: 35 Patient Condition:: Stable Medical Necessity - Tobacco Use Smoking Status: Never smoker Meaningful Use Info Meaningful Use Diagnoses (Choose all that apply): CHF - CHF MALCOM/ARB ordered at discharge?: Yes Documented LVEF (%): 40 Inpatient E&M: 24499 Disch Hosp
--- NOTE | 2020-10-18 13:16 | PCM.PN.CARD ---
Subjectve: The patient states that she is feeling better overall with respect to her sensation of her heart rate as well as her overall volume status. She notes that her lower extremities appear to be much improved status post medical therapy and her Mariusz wraps. Objective: Vital Signs Temp Pulse Resp BP Pulse Ox 98.9 F 102 H 15 135/78 H 94 10/18/20 08:40 10/18/20 12:25 10/18/20 08:40 10/18/20 08:40 10/18/20 08:40 Oxygen Delivery Method Room Air Weight: 232 lb 2.348 oz Body Mass Index (BMI) 46.0 Intake and Output for Last 24 Hours 10/16/20 10/17/20 10/18/20 23:59 23:59 23:59 Intake Total 130 / 130 691.42 / 691.42 500 / 500 Output Total 1500 / 1500 700 / 700 Balance 130 / 130 -808.58 / -808.58 -200 / -200 General: Awake, Alert, Oriented x 3, Cooperative, No Acute Distress, Obese HEENT: Atraumatic, Normocephalic, PERRL, EOMI, Sclera Non Icteric Neck: Supple, Good ROM, No JVD Lungs: Rales - Mario Bases - Minimal Cardiovascular: Irregular Rhythm, Normal S1, Normal S2 Abdomen: Bowel Sounds Present, Soft Extremities: Moderate RLE Edema, Mild LLE Edema Psych/Mental Status: Appropriate 10/18/20 05:14: WBC 9.9, RBC 3.65 L, Hgb 10.1 L, Hct 32.7 L, MCV 89.6, MCH 27.7, MCHC 30.9 L, Plt Count 266, MPV 10.1, Immature Gran % (Auto) 0.300, Neut % (Auto) 76.7 H, Lymph % (Auto) 10.4 L, [place] % (Auto) 9.4, Eos % (Auto) 2.9, Baso % (Auto) 0.3, Absolute Neuts (auto) 7.6, Nucleated RBC % 0 10/18/20 05:14: Sodium 140, Potassium 3.7, Chloride 106, Carbon Dioxide 30.0, Anion Gap 4 L, BUN 19 H, Creatinine 0.83, Est GFR (MDRD) Af Amer 85, Est GFR (MDRD) Non-Af 70, BUN/Creatinine Ratio 22.9 H, Glucose 136 H, Calcium 8.9 Rhythm: Atrial fibrillation Medical Necessity - Tobacco Use Smoking Status: Never smoker Assessment/Plan 1. Atrial fibrillation At the present time the patient will continue rate limiting therapy and anticoagulant therapy and antiarrhythmic therapy. With respect to her rate limiting therapy an additional rate limiting agent with diltiazem CD was added to her antiarrhythmic therapy-sotalol/Betapace-which has beta-andi properties. Overall her rate apparently has been improved. She will continue this combination of medications. 2. CHF: Acute systolic There were concerns of acute CHF. Based upon her most recent echocardiogram it appears she had mild diminished LV systolic function in a global nature. This may be secondary to her atrial dysrhythmia. At the present time she has been treated medically for her atrial dysrhythmia as well as for concerns of volume overload which has included the addition of diuretic therapy. She states her breathing has improved as has her lower extremity edema. Thus she will continue diuretic therapy. Over time she will need follow-up of her renal function and her electrolytes. 3. Hyperlipidemia She will continue medical management as deemed appropriate. 4. Hypertension Her blood pressures will be followed over time. Her medications can be adjusted as needed. Overall she states she is feeling better. She has requested released home for continued outpatient follow-up. Her case was discussed with her and her daughter, via telephone, from [place]. Her daughter is hopeful that she may be a candidate for some form of home health care nursing visits in addition to family or friends visiting as well to help monitor her mother's condition. The above information was passed along to the [facility] nursing staff caring for the patient. This note was generated using a voice recognition system and there may be incorrect words, spelling or punctuation that were not noted when reviewing the office note prior to saving.
--- NOTE | 2020-10-18 13:19 | CASEMGMT ---
This RN CM to room to discuss discharge planning at this time. Pt states she would like [facility] set up for SN at this time and declines need for PT/OT at this time. Pt provided with list of local in-network [facility] agencies and pt states she would like [facility] at this time. Call to Jennifer at [facility] and she states they should be able to take pt but will call this ASHER SILVA back. Pt states her son, who lives in [place], will pick her up and may stay the night with her as well. Pt states she has priviate duty aides MTF and a cleaning lady on . Pt states she may need to bring more aides but states no concerns with going home at this time. Pt voices no further questions/concerns/needs at this time. Renu STERLING CM
[2020-10-18 16:01] VITALS: BP 119/66; PULSE 85; RESP 17; TEMP 36.9; O2SAT 95
--- NOTE | 2020-10-19 15:29 | CASEMGMT ---
ASHER SILVA Discharge Follow-up Phone Call: FERNANDA: Duglas Strata: 3 Call Date: 10/19/20 Discharge Date: 10/18/20 Time of Call: 1525 Duration: 3 min Admitting Diagnosis: Afib with RVR, CHF RN SHIRA completed follow-up phone call after recent hospitalization. Patient states she is doing well. Patient states she had no questions or concerns regarding discharge instructions. Patient was able to fill prescriptions without any issues. Patient has follow-up appt scheduled. [facility] and states they have been out to see her. Patient had no further questions or concerns at this time.
== END 2020-10-18 17:06 | disposition home or self-care (01) | DRG 308 ==
LOC: ED 23:30 → PCU 10-16 00:09
PROVIDERS: Family Medicine; Admitting Provider Hospitalist; Emergency Provider Emergency Medicine; PCP Family Medicine; Visit Provider Internal Medicine
DX: I48.0 Paroxysmal atrial fibrillation (principal); I50.23 Acute on chronic systolic (congestive) heart failure; N17.9 Acute kidney failure, unspecified; Z68.42 Body mass index [BMI] 45.0-49.9, adult; I11.0 Hypertensive heart disease with heart failure; E78.5 Hyperlipidemia, unspecified; E87.6 Hypokalemia; Z79.899 Other long term (current) drug therapy; Z79.02 Long term (current) use of antithrombotics/antiplatelets; Z87.891 Personal history of nicotine dependence; E11.65 Type 2 diabetes mellitus with hyperglycemia; E66.01 Morbid (severe) obesity due to excess calories
CPT/HCPCS: 36415; 71045; 80048; 82962; 83735; 83880; 84443; 84484; 85025; 92611; 93005; 93306; 97110; 97116; 97161; 97165; 97535; 97802; 99285; A4216; J1940

== ENCOUNTER → 2021-01-28 13:00 | Outpatient (CLI) | payer MEDICARE, SELFPAY ==
[2020-11-22 10:55] VITALS: BMI 43.3
[2021-01-28 15:09] LABS: Absolute Lymphocyte Count 1.26 X10^3/uL (0.83-4.51); Absolute Neutrophil Count 5.2 X10^3/uL (2.0-7.7); Basophil# 0.04 X10^3/uL; Basophil% 0.5 % (0-1); Eosinophil# 0.46 X10^3/uL; Hematocrit 38.8 % (37-47); Hemoglobin 12.3 g/dL (12.0-15.0); Lymphocyte # 1.26 X10^3/ul (4.0); Lymphocyte % 16.4 % (19-41); Mean Corp Hgb Conc 31.7 g/dL (32-36); Mean Corpuscular Hgb 27.8 pg (27.0-32.0); Mean Corpuscular Volume 87.8 fL (81-99); Mean Platelet Vol. 10.6 fl (6.2-12.0); Monocyte# 0.66 X10^3/uL; Monocyte% 8.6 % (0-10); NRBC Flagged by Analyzer 0 % (0-5); Neutrophil # 5.21 X10^3/uL (2.7-7.7); Platelet Count 293 K/mm3 (150-450); RBC Distribution Width CV 15.3 % (11.6-14.6); RBC Distribution Width SD 49.4 fl (35.1-43.9); Red Blood Count 4.42 M/mm3 (4.2-5.4); White Blood Count 7.7 K/mm3 (4.4-11.0)
[2021-01-28 15:22] LABS: Vitamin B12 951 pg/mL (211-911)
[2021-01-28 15:34] LABS: Hemoglobin A1c 6.5 % (3.8-5.6)
[2021-01-28 15:41] LABS: Microalbumin,Random Urine 52.1 mg/L (NO RANGE EST.); Microalbumin:Creatinine Ratio 36.2 mg/g CRE (<30 mg/g CRE)
[2021-01-28 16:11] LABS: AST(SGOT) 26 U/L (15-37); Alanine Aminotransfer ALT/SGPT 27 U/L (13-56); Albumin, Serum 4.1 g/dL (3.2-5.0); Alkaline Phosphatase 58 U/L (45-117); Anion Gap 9 (5-15); BUN 53 mg/dL (7-18); BUN/Creat Ratio 31.9 RATIO (10-20); Chloride 102 mmol/L (98-107); Cholesterol 166 mg/dL (200); Creatinine, Serum 1.66 mg/dL (0.55-1.02); EST Glomerular Filtration Rate 31 mL/min (>60); Est Glom Filt Rate - Afr Amer 38 mL/min (>60); Ferritin 37 ng/mL (8-252); Glucose 110 mg/dL (74-106); High Density Lipoprotein 58 mg/dL; Iron 84 ug/dL (50-170); Iron Binding Capacity,Total 390 ug/dL (250-450); Magnesium 2.6 mg/dL (1.6-2.6); Phosphorus 5.9 mg/dL (2.5-4.9); Potassium 5.6 mmol/L (3.5-5.1); Protein, Total 8.1 g/dL (6.4-8.2); Sodium Level 135 mmol/L (136-145); Thyroid Stim Hormone (TSH) 2.66 uIU/mL (0.358-3.74); Triglycerides 240 mg/dL; Very Low Density Lipoprotein 48 mg/dL (5-40)
[2021-01-31 08:02] LABS: PTHIN 39.8 pg/mL (18.4-80.1)
== END ==
PROVIDERS: PCP Family Medicine; Referring Provider Family Medicine; Visit Provider Family Medicine
DX: I12.9 Hypertensive chronic kidney disease with stage 1 through stage 4 chronic kidney disease, or unspecified chronic kidney disease (principal); E11.22 Type 2 diabetes mellitus with diabetic chronic kidney disease; N18.30 Chronic kidney disease, stage 3 unspecified; D64.9 Anemia, unspecified; D63.1 Anemia in chronic kidney disease; E78.5 Hyperlipidemia, unspecified; I48.0 Paroxysmal atrial fibrillation; R80.9 Proteinuria, unspecified
CPT/HCPCS: 36415; 80053; 80061; 82043; 82570; 82607; 82728; 82746; 83036; 83540; 83550; 83735; 83970; 84100; 84443; 85025

== ENCOUNTER → 2021-01-31 10:51 | Outpatient (CLI) | payer MEDICARE, SELFPAY ==
[2020-11-22 10:55] VITALS: BMI 43.3
[2021-01-31 12:32] LABS: Anion Gap 4 (5-15); BUN 48 mg/dL (7-18); BUN/Creat Ratio 31.4 RATIO (10-20); Calcium,Total 9.5 mg/dL (8.5-10.1); Chloride 107 mmol/L (98-107); Creatinine, Serum 1.53 mg/dL (0.55-1.02); EST Glomerular Filtration Rate 35 mL/min (>60); Est Glom Filt Rate - Afr Amer 42 mL/min (>60); Glucose 131 mg/dL (74-106); Potassium 4.9 mmol/L (3.5-5.1); Sodium Level 137 mmol/L (136-145)
== END ==
PROVIDERS: PCP Family Medicine; Referring Provider Family Medicine; Visit Provider Family Medicine
DX: N18.30 Chronic kidney disease, stage 3 unspecified (principal)
CPT/HCPCS: 36415; 80048

== ENCOUNTER → 2021-03-15 11:58 | Outpatient (CLI) | payer MEDICARE, SELFPAY ==
[2020-11-22 10:55] VITALS: BMI 43.3
[2021-03-15 13:16] LABS: Protein, Urine (Random) 23.3 mg/dL (<11.9); Protein:Creat Ratio 273 mg/g CRE (0-200)
[2021-03-15 13:22] LABS: Albumin, Serum 3.7 g/dL (3.2-5.0); BUN 30 mg/dL (7-18); BUN/Creat Ratio 27.5 RATIO (10-20); Chloride 107 mmol/L (98-107); Creatinine, Serum 1.09 mg/dL (0.55-1.02); EST Glomerular Filtration Rate 51 mL/min (>60); Est Glom Filt Rate - Afr Amer 62 mL/min (>60); Glucose 116 mg/dL (74-106); Phosphorus 3.8 mg/dL (2.5-4.9); Potassium 4.4 mmol/L (3.5-5.1); Sodium Level 140 mmol/L (136-145)
== END ==
PROVIDERS: PCP Family Medicine; Visit Provider Internal Medicine Nephrology
DX: N17.9 Acute kidney failure, unspecified (principal)
CPT/HCPCS: 36415; 80069; 82570; 84156

== ENCOUNTER → 2021-03-17 09:51 | Outpatient (CLI) | payer MEDICARE, SELFPAY ==
[2020-11-22 10:55] VITALS: BMI 43.3
--- NOTE | 2021-03-17 09:53 | US_ITS ---
STUDY: RENAL ULTRASOUND - COMPLETE REASON FOR EXAM: Female, 80 years old. ACUTE on chronic RENAL FAILURE TECHNIQUE: Ultrasound evaluation of the kidneys was performed with real-time and static ram-scale imaging. COMPARISON: None. FINDINGS: RIGHT KIDNEY: Normal location of the right kidney, which is normal in size. The right kidney measures 10.9 cm x 4.1 cm x 4.9 cm. There is a normal cortex of the right kidney. The renal cortex measures 1.5 cm. There is no right renal mass or cyst. There are no right renal calculi. There is no right hydronephrosis. DISTAL RIGHT URETER: There is non-visualization of the distal right ureter. There is no demonstrated right ureterovesical junction calculus. There is no demonstrated right ureteral jet. LEFT KIDNEY: Normal location of the left kidney, which is normal in size. The left kidney measures 10.4 cm x 4.5 cm x 4.7 cm. There is a normal cortex of the left kidney. The renal cortex measures 1.5 cm. There is a 1.6 cm x 1.4 cm x 1.4 cm cyst. Incidental note is made of a 4 mm x 3 mm x 3 mm calculus in the left kidney. There is no left hydronephrosis. DISTAL LEFT URETER: There is non-visualization of the distal left ureter. There is no demonstrated left ureterovesical junction calculus. There is no demonstrated left ureteral jet. BLADDER: The bladder is not adequately distended for assessment at this time. US/Kidney and Bladder IMPRESSION: 1.6 cm x 1.4 cm x 1.4 cm cyst in the left kidney. 4 mm x 3 mm x 3 mm nonobstructive calculus in the left kidney. Electronically Signed: Alexis Munoz MD at 15:00 EDT , Service support ,
== END ==
PROVIDERS: PCP Family Medicine; Referring Provider Family Medicine Geriatric Medicine; Visit Provider Family Medicine Geriatric Medicine
DX: N17.9 Acute kidney failure, unspecified (principal)
CPT/HCPCS: 76770

== ENCOUNTER → 2021-04-15 11:41 | Outpatient (CLI) | payer MEDICARE, SELFPAY ==
[2020-11-22 10:55] VITALS: BMI 43.3
[2021-04-15 15:46] LABS: Albumin, Serum 3.7 g/dL (3.2-5.0); BUN 23 mg/dL (7-18); BUN/Creat Ratio 23.6 RATIO (10-20); Calcium,Total 9.3 mg/dL (8.5-10.1); Chloride 101 mmol/L (98-107); Creatinine, Serum 0.98 mg/dL (0.55-1.02); EST Glomerular Filtration Rate 58 mL/min (>60); Est Glom Filt Rate - Afr Amer 70 mL/min (>60); Glucose 109 mg/dL (74-106); Phosphorus 3.1 mg/dL (2.5-4.9); Potassium 3.8 mmol/L (3.5-5.1); Sodium Level 141 mmol/L (136-145)
== END ==
PROVIDERS: PCP Family Medicine; Referring Provider Internal Medicine Nephrology; Visit Provider Internal Medicine Nephrology
DX: N18.2 Chronic kidney disease, stage 2 (mild) (principal)
CPT/HCPCS: 36415; 80069